=== PATIENT | male | born 1970 | race Hispanic/Latino ===

== ENCOUNTER 2018-03-04 04:17 | Emergency (ER) | payer BC ==
--- OUTSIDE RECORDS SUMMARY | 2018-03-04 04:19 | XMS REPORT ---
:1970 [facility] Address [address] [place] [address] Dr. Mar [address] [place] [id number] Care Team Providers Name Role Phone Unavailable Unavailable Unavailable Problems This patient has no known problems. Allergies, Adverse Reactions, Alerts This patient has no known allergies or adverse reactions. Medications This patient has no known medications. Results Test Description Test Time Test Comments Text Results Atomic Results Result Comments CT LUMBAR WO CLINICAL INDICATION: M47.9 Spondylosis, unspecified low back painMODALITY: Siemens XIFIN CT (Iterative dose reduction techniques are utilized.)TECHNIQUE: CT scan of the lumbar spine was performed without contrast. Axial images are obtained. Images are reformatted in coronal and sagittal planes. Bone and soft tissue windows are formatted.IMPRESSION:1. Global fusions which are solid L4-S1.2. Instrumentation remains on the right which is in good position without failure fracture or loosening. Instrumentation left is been removed.3. Decompressive laminectomies L1-S1 without central canal stenosis.4. Previously noted disc protrusion/herniations posteriorly at L1-2 through L3-4 levels demonstrate some areas of calcification. These are further described on MRI lumbar spine.FINDINGS:COMPARISON: noneGeneral observations: Five non-rib bearing lumbar type vertebral bodies are present.Global fusions with instrumentation L4-S1. Interbody fusion cages/grafts are in good position incorporated endplates with solid interbody fusions. Hardware is been removed on the left however remains on the right in good position without failure fracture or loosening. Bilateral posterior lateral bone fusion masses solid L4-S1. Decompressive laminectomies L1 through S1.Moderate disc degeneration spondylosis L3-4 with degenerative retrolisthesis L3 on L4. Mild to moderate disc degeneration spondylosis L1-2 and L2-3 levels with degenerative retrolisthesis of L1-L2 and L2 and L3.Postsurgical changes noted in dorsal paraspinal soft tissues without paraspinal soft tissue mass.Posterior disc protrusions/herniations noted at L1-2 through L3-4 levels which are partially calcified and further described on the MRI report.No vertebral body collapse, lytic or blastic lesion.PQRS 436: [id number] (For official use only.) MRI LUMBAR WO CLINICAL INDICATION: M47.9 Spondylosis, unspecified low back pain radiating to both legs with weakness and numbness in both feet. History of lumbar fusion in March 2013 and hardware removal September 2013MODALITY: Avanto 1.5 Renea 18 channel MRI TECHNIQUE: Multiplanar multi sequence MRI examination of the lumbar spine was performed.IMPRESSION:1. Global fusion L4-5 and L5-S1 levels with decompressive laminectomies. No central canal narrowing. Foraminal narrowing as described below.2. Laminectomies T12-L1 through L2-3 levels.3. Probable mild arachnoiditis.4. Posterior disc herniations T12-L1 through L3-4 levels as described above. No significant central canal stenosis however there is some neural mass effect as described below.5. Remainder described belowFINDINGS:COMPARISON: noneGeneral observations: Five non-rib bearing lumbar type vertebral bodies will be assumed.Conus tip located at T12-L1.Mild irregularity of intrathecal nerve root sleeves and vessels. This is suggestive of mild arachnoiditis.Status post global fusions with instrumentation L4-5 and L5-S1 levels. Instrumentation remains on the right from L4-S1 but has been removed on the left L4-S1. Interbody fusion cages/graft appears to be incorporated into endplates at both L4-5 and L5-S1 levels. Status of posterior lateral fusions cannot be determined on these images.Moderate disc degeneration and spondylosis L3-4 with mild to moderate disc degeneration spondylosis L1-2 and L2-3 levels.No vertebral body compression.No pathologic marrow infiltrative process.No paraspinal soft tissue mass however postsurgical changes noted in dorsal soft tissues.FINDINGS AT SPECIFIC LEVELS:L5-S1: No central canal stenosis. Mild to moderate left and mild right foraminal narrowing.L4-L5: No central canal stenosis. Mild bilateral foraminal narrowing.L3-L4: Mild degenerative retrolisthesis of L3 on L4 with six - 7 mm posterior disc herniation with mild caudad extrusion projecting into ventral epidural fat. This encroaches on at least left and probably right L for root and only slightly indents ventral thecal sac. Post canal is decompressed with laminotomy/laminectomy. No significant stenosis subarachnoid space. Degree of right foraminal narrowing difficult to determine however this appears to be moderate encroaching on right L3 root. Mild to moderate left foraminal narrowing.L2-L3: Slight retrolisthesis L2 on L3 with a eight - 9 mm posterocentral soft disc herniation indenting ventral thecal sac. Decompressive laminectomies and partial facetectomies been performed without narrowing subarachnoid space small foraminal disc osteophyte complexes without significant foraminal stenosisL1-L2: Slight retrolisthesis L1-L2 with posterior broad-based disc osteophyte complex and superimposed left posterior lateral disc herniation. There is a 13 mm extruded fragment in the mid left L1 lateral recess exerting mass effect on thecal sac and traversing left L1 root. Decompressive laminectomies. There is only mild narrowing subarachnoid space at the level of extruded fragment. No significant foraminal stenosis.T12-L1 shows 7-8 mm posterocentral soft disc herniation with slight cephalad extrusion mildly encroaching upon the lower thoracic cord/conus without compression. There is mild narrowing subarachnoid space. MRI CERVICAL WO CLINICAL INDICATION: M47.9 Spondylosis, [id number] Cervical disc disorder, unsp, unspecified cervical region neck pain radiating to both shoulders and arms with numbness in both handsMODALITY: Avanto 1.5 Renea 18 channel MRITECHNIQUE: Multiplanar SE and FSE evaluation of the cervical region was performed without contrast enhancement.IMPRESSION:1. C5-6 shows a 4 mm posterocentral right paracentral disc protrusion with annular tear mildly encroaching upon ventral cord with mild narrowing subarachnoid space. No cord compression.2. C6-7 shows a 3 mm posterior disc protrusion with annular tear indenting thecal sac not affecting cord. Mild narrowing subarachnoid space with mild left foraminal narrowing.FINDINGS:COMPARISON: noneNo tonsillar ectopia or foramen magnum mass and cervical cord is unremarkable without intradural extramedullary abnormalityMild disc degeneration spondylosis C3-4 through C6-7 levels.Minimal kyphosis of cervical spine.No vertebral body compression.No pathologic marrow infiltrative process.No paraspinal soft tissue mass.Atlanto-axial articulation unremarkableFINDINGS AT SPECIFIC LEVELS:C2-C3: UnremarkableC3-C4: One - 2 mm posterocentral disc bulge slightly indents ventral thecal sac without mass effect on cord, canal or foraminal stenosisC4-C5: 2 mm posterocentral disc bulge indents ventral thecal sac without mass effect on cord, canal or foraminal stenosis.C5-C6: 4 mm posterocentral and slightly right paracentral disc protrusion with annular tear indents ventral cord with slight posterior cord displacement and mild central canal narrowing. No cord compression. No foraminal stenosis.C6-C7: 3 mm posterior broad-based disc protrusion with annular tear indents ventral thecal sac without mass effect on cord. Only mild narrowing subarachnoid space. Mild left foraminal narrowing.C7-T1: Unremarkable.
[2018-03-04] MEDS ORDERED: KETOROLAC 30 MG/ML INJ ONE (05:38)
--- NOTE | 2018-03-04 05:53 | ER ---
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 Transition of care: patient was not received from another setting of care. Onset of symptoms was March 04, 2018. Risk Assessment: Do you want to hurt yourself or someone else? Patient reports no desire to harm self or others. Initial Sepsis Screen: Does the patient meet any 2 criteria? No. Patient's initial sepsis screen is negative. Does the patient have a suspected source of infection? No. Patient's initial sepsis screen is negative. Care prior to arrival: None. 04:32 Method Of Arrival: Ambulatory 04:32 Acuity: TANVI 4 bb Triage Assessment: 04:30 General: Appears in no apparent distress. comfortable, Behavior is calm, cooperative, cc3 appropriate for age. Pain: Complains of pain in left knee Pain currently is 8 out of 10 on a pain scale. Quality of pain is described as aching. EENT: No signs and/or symptoms were reported regarding the EENT system. Neuro: Level of Consciousness is awake, alert, obeys commands, Oriented to person, place, time, situation. Cardiovascular: Denies chest pain. Respiratory: Airway is patent Respiratory effort is even, unlabored, Respiratory pattern is regular, symmetrical. GI: Abdomen is round obese. : No signs and/or symptoms were reported regarding the genitourinary system. Derm: No signs and/or symptoms reported regarding the dermatologic system. Musculoskeletal: Circulation, motion, and sensation intact. Range of motion: intact in all extremities. Historical: - Allergies: 04:35 Rocephin; bb - Home Meds: 04:35 Mildred inj weekly [Active]; B 12 inj Q 2 weeks [Active]; bb - PMHx: 04:35 SVT; bb - PSHx: 04:35 heart ablation; back surgery; bb - Immunization history:: Adult Immunizations up to date. - Social history:: Smoking status: Patient uses tobacco products, smokes one-half pack cigarettes per day, Patient uses alcohol, occasionally. - Ebola Screening: : No symptoms or risks identified at this time. Screenin:30 Abuse screen: Denies threats or abuse. Denies injuries from another. Nutritional cc3 screening: No deficits noted. Tuberculosis screening: No symptoms or risk factors identified. Fall Risk Ambulatory Aid- None/Bed Rest/Nurse Assist (0 pts). Gait- Normal/Bed Rest/Wheelchair (0 pts) Mental Status- Oriented to own ability (0 pts). Assessment: 04:30 General: see triage assessment. cc3 05:43 Reassessment: Patient appears in no apparent distress at this time. Patient and/or cc3 family updated on plan of care and expected duration. Pain level reassessed. Patient is alert, oriented x 3, equal unlabored respirations, skin warm/dry/pink. 06:10 Reassessment: Patient appears in no apparent distress at this time. Patient and/or cc3 family updated on plan of care and expected duration. Pain level reassessed. Patient is alert, oriented x 3, equal unlabored respirations, skin warm/dry/pink. Dr. Koenig discharged home the patient with prescription given. Knee immobilizer applied to the left knee as ordered. Patient left ER vitally stable and ambulatory. Vital Signs: 04:35 BP 137 / 96; Pulse 68; Resp 18 S; Temp 97.7(O); Pulse Ox 97% on R/A; Weight 108.86 kg bb (R); Height 5 ft. 8 in. (172.72 cm) (R); Pain 9/10; 05:03 BP 142 / 92; Pulse 63; Resp 19 S; Pulse Ox 98% on R/A; cc3 06:00 BP 125 / 81; Pulse 60; Resp 17 S; Pulse Ox 99% on R/A; Pain 4/10; cc3 04:35 Body Mass Index 36.49 (108.86 kg, 172.72 cm) bb ED Course: 04:18 Patient arrived in ED. am2 04:18 Vida Oliver MD is Private Physician. am2 04:25 Bhargav Koenig MD is Attending Physician. tw4 04:29 Comfort Davis is Primary Nurse. cc3 04:30 Patient has correct armband on for positive identification. Placed in gown. Bed in low cc3 position. Call light in reach. Side rails up X 1. Pulse ox on. NIBP on. 04:34 Triage completed. bb 04:35 Arm band placed on Patient placed in an exam room, on a stretcher, on pulse oximetry. bb 05:35 X-ray completed. Portable x-ray completed in exam room. Patient tolerated procedure kw well. 05:37 XRAY Knee LEFT 3 view In Process Unspecified. EDMS 05:52 Vida Oliver MD is Referral Physician. tw4 06:10 No provider procedures requiring assistance completed. Patient did not have IV access cc3 during this emergency room visit. Administered Medications: 05:35 Drug: TORadol 60 mg Route: IM; Site: right gluteus; cc3 06:00 Follow up: Response: No adverse reaction; Pain is decreased cc3 Outcome: 05:52 Discharge ordered by MD. tw4 06:10 Discharged to home ambulatory. cc3 06:10 Condition: stable 06:10 Discharge instructions given to patient, Instructed on discharge instructions, follow up and referral plans. medication usage, Demonstrated understanding of instructions, follow-up care, medications, Prescriptions given X 1. 06:19 Patient left the ED. cc3 Signatures: Dispatcher [employer] EDMS Jena Quinones, RN RN Ashlee Cerna Amanda am2 Wadley, Terrence, MD MD tw4 Comfort Davis cc3
--- NOTE | 2018-03-04 05:53 | EDPHYS ---
Physician Documentation [facility] Name: Noah De La Fuente Age: 47 yrs Sex: Male : 1970 Arrival Date: 03/04/2018 Time: 04:18 Bed 14 Private MD: Vida Oliver ED Physician Bhargav Koenig HPI: 03/04 20:02 This 47 yrs old Male presents to ER via Ambulatory with complaints of Knee tw4 Pain. 20:02 This 47 yrs old Male presents to ER via Ambulatory with complaints of Knee tw4 Pain. 20:02 The patient presents with decreased range of motion, an injury. The complaints affect tw4 the lateral aspect of left knee and left knee. Context: The problem was sustained at home, resulted from a mis-step, on a floor edge. Onset: The symptoms/episode began/occurred just prior to arrival. Modifying factors: The symptoms are alleviated by remaining still, the symptoms are aggravated by movement, weight bearing, bending knee. Associated signs and symptoms: The patient has no apparent associated signs or symptoms. Treatment prior to arrival includes: no previous treatment. The patient has not experienced similar symptoms in the past. Historical: - Allergies: 04:35 Rocephin; bb - Home Meds: 04:35 Mildred inj weekly [Active]; B 12 inj Q 2 weeks [Active]; bb - PMHx: 04:35 SVT; bb - PSHx: 04:35 heart ablation; back surgery; bb - Immunization history:: Adult Immunizations up to date. - Social history:: Smoking status: Patient uses tobacco products, smokes one-half pack cigarettes per day, Patient uses alcohol, occasionally. - Ebola Screening: : No symptoms or risks identified at this time. ROS: 20:02 Constitutional: Negative for fever, chills, and weight loss, Eyes: Negative for injury, tw4 pain, redness, and discharge, Cardiovascular: Negative for chest pain, palpitations, and edema, Respiratory: Negative for shortness of breath, cough, wheezing, and pleuritic chest pain, Abdomen/GI: Negative for abdominal pain, nausea, vomiting, diarrhea, and constipation, Back: Negative for injury and pain, MS/Extremity: Negative for injury and deformity, Skin: Negative for injury, rash, and discoloration. Exam: 20:05 Constitutional: This is a well developed, well nourished patient who is awake, alert, tw4 and in no acute distress. Head/Face: Normocephalic, atraumatic. Chest/axilla: Normal chest wall appearance and motion. Nontender with no deformity. No lesions are appreciated. Cardiovascular: Regular rate and rhythm with a normal S1 and S2. No gallops, murmurs, or rubs. Normal PMI, no JVD. No pulse deficits. Respiratory: Lungs have equal breath sounds bilaterally, clear to auscultation and percussion. No rales, rhonchi or wheezes noted. No increased work of breathing, no retractions or nasal flaring. Abdomen/GI: Soft, non-tender, with normal bowel sounds. No distension or tympany. No guarding or rebound. No evidence of tenderness throughout. Back: No spinal tenderness. No costovertebral tenderness. Full range of motion. MS/ Extremity: Pulses equal, no cyanosis. Neurovascular intact. Full, normal range of motion. Neuro: Awake and alert, GCS 15, oriented to person, place, time, and situation. Cranial nerves II-XII grossly intact. Motor strength 5/5 in all extremities. Sensory grossly intact. Cerebellar exam normal. Normal gait. Vital Signs: 04:35 BP 137 / 96; Pulse 68; Resp 18 S; Temp 97.7(O); Pulse Ox 97% on R/A; Weight 108.86 kg bb (R); Height 5 ft. 8 in. (172.72 cm) (R); Pain 9/10; 05:03 BP 142 / 92; Pulse 63; Resp 19 S; Pulse Ox 98% on R/A; cc3 06:00 BP 125 / 81; Pulse 60; Resp 17 S; Pulse Ox 99% on R/A; Pain 4/10; cc3 04:35 Body Mass Index 36.49 (108.86 kg, 172.72 cm) bb MDM: 04:25 Patient medically screened. tw4 20:06 Differential diagnosis: dislocation, closed fracture, contusion, abrasion, tendonitis. tw4 Data reviewed: vital signs, nurses notes. Data interpreted: Pulse oximetry: Interpretation: normal. Counseling: I had a detailed discussion with the patient and/or guardian regarding: the historical points, exam findings, and any diagnostic results supporting the discharge/admit diagnosis. 03/04 04:39 Order name: XRAY Knee LEFT 3 view bb Administered Medications: 05:35 Drug: TORadol 60 mg Route: IM; Site: right gluteus; cc3 06:00 Follow up: Response: No adverse reaction; Pain is decreased cc3 Disposition: 03/04/18 05:52 Discharged to Home. Impression: Sprain of other specified parts of knee. - Condition is Stable. - Discharge Instructions: Knee Sprain, [id number]. - Prescriptions for Tramadol 50 mg Oral Tablet - take 1 tablet by ORAL route every 8 hours as needed; 12 tablet. - Medication Reconciliation Form, Thank You Letter, Antibiotic Education, Prescription Opioid Use form. - Follow up: Vida Oliver MD; When: Upon discharge from the Emergency Department; Reason: Further diagnostic work-up, Recheck today's complaints, Continuance of care. - Problem is new. - Symptoms have improved. Signatures: Dispatcher [employer] EDJena Pryor RN RN Bhargav Peres MD MD tw4 Comfort Davis cc3 Corrections: (The following items were deleted from the chart) 06:19 05:52 03/04/2018 05:52 Discharged to Home. Impression: Sprain of other specified parts cc3 of knee. Condition is Stable. Forms are Medication Reconciliation Form, Thank You Letter, Antibiotic Education, Prescription Opioid Use. Follow up: Vida Oliver; When: Upon discharge from the Emergency Department; Reason: Further diagnostic work-up, Recheck today's complaints, Continuance of care. Problem is new. Symptoms have improved. tw4
[2018-03-04 06:26] VITALS: TEMP 97.7
[2018-03-04 06:33] VITALS: BP 125/81; O2SAT 99
--- NOTE | 2018-03-04 08:46 | RAD REPORT ---
EXAM DESCRIPTION: RAD - Knee Left 3 View - 03/04/2018 5:36 am CLINICAL HISTORY: PAIN COMPARISON: No comparisons FINDINGS: Medial compartment space narrowing is present compatible with mild osteoarthritis. A small to moderate suprapatellar joint effusion is seen. No fracture or dislocation evident. No aggressive marrow lesion.
== END 2018-03-04 06:19 | disposition home or self-care (01) ==
LOC: ER 04:17
DX: S83.8X2A Sprain of other specified parts of left knee, initial encounter (principal); X58.XXXA Exposure to other specified factors, initial encounter; Y93.89 Activity, other specified; Y92.009 Unspecified place in unspecified non-institutional (private) residence as the place of occurrence of the external cause; Z88.1 Allergy status to other antibiotic agents; I47.1 Supraventricular tachycardia
CPT/HCPCS: 96372; 99284

== ENCOUNTER 2019-07-28 22:54 | Emergency (ER) | payer BC ==
--- OUTSIDE RECORDS SUMMARY | 2019-07-28 22:57 | XMS REPORT | Summary of Care ---
:1970 Author Organization [facility] Address [address] [place] [id number] Care Team Providers Name Role Phone Jesús Mata MD Primary Care Provider Reason for Visit Reason Comments Abdominal Pain RLQ x 3-4 days, constant pain 9/10 that radiates to right posterior and anteriot upper leg, pt describes pain as pressure with occasional sharp pains Encounter Details Date Type Department Care Team Description 06/19/2019 Nurse Visit [facility] Unknown, Attending RLQ abdominal pain Urgent Care Nurse, [facility] (Primary Dx) [address] [place] [address] [place] [address] Allergies Active Allergy Reactions Severity Noted Date Comments Ceftriaxone Sodium Hives Medium 09/30/2015 documented as of this encounter (statuses as of 06/19/2019) Medications Medication Sig Dispensed Refills Start Date End Date Status cyanocobalamin, Inject 1,000 mcg as 0 Active vitamin B-12, directed weekly. (PHYSICIANS EZ USE B-12) 1,000 mcg/mL injection HUMIRA PEN 40 mg/0.8 inject 40 mg under 1 06/27/2016 Active mL injection the skin every 2 (two) weeks. albuterol 2.5 mg /3 Inhale 3 mL every 4 1 Box 0 04/14/2019 Active mL (0.083 %) (four) hours as nebulizer needed for Wheezing solutionIndications: or Shortness of Bronchitis Breath. promethazine-dextrome Take 5 mL by mouth 175 mL 0 04/14/2019 Active thorphan 6.25-15 mg/5 4 (four) times mL syrupIndications: daily as needed for Bronchitis Cough. documented as of this encounter (statuses as of 06/19/2019) Active Problems Problem Noted Date Obesity (BMI 30-39.9) 03/10/2018 Total knee replacement status 03/10/2018 Pain 10/03/2015 documented as of this encounter (statuses as of 06/19/2019) Social History Tobacco Use Types Packs/Day Years Used Date Current Every Day Smoker Cigarettes 0.5 Smokeless Tobacco: Never Used Alcohol Use Drinks/Week oz/Week Comments No 0 Standard drinks or equivalent 0.0 Sex Assigned at Date Recorded Not on file Job Start Date Occupation Industry Not on file Not on file Not on file Travel History Travel Start Travel End No recent travel history available. documented as of this encounter Last Filed Vital Signs Vital Sign Reading Time Taken Comments Blood Pressure 134/104 06/19/2019 9:04 PM [employer] [facility] Pulse 98 06/19/2019 9:04 PM [employer] Temperature 36.8 C (98.3 F) 06/19/2019 9:04 PM [employer] Respiratory Rate 18 06/19/2019 9:04 PM [employer] Oxygen Saturation 99% 06/19/2019 9:04 PM [employer] Inhaled Oxygen Concentration - - Weight 114.3 kg (252 lb) 06/19/2019 9:04 PM [employer] Height 172.7 cm (5' 8") 06/19/2019 9:04 PM [employer] Body Mass Index 38.32 06/19/2019 9:04 PM [employer] documented in this encounter Progress Notes Beth Contreras MA - 06/19/2019 8:45 PM CSTNoah De La Fuente is a 49 y/o male complaining of RLQ pain x 3-4 days. Patient reports 01/20 constant pressure-like pain with intermittent sharp pains in right side. Pt states pain radiates to right posterior and anterior upper leg. Patient reports history of none. Patient AAOx4, ambulatory, eupneic, skin pink/warm/dry, no acute distress noted. Patient encouraged to seek emergency medical treatment at local emergency room for RLQ pain 01/20. Case discussed with RICH Adams who agrees with treatment plan recommendations. Patient verbalizes understanding and states she will be seen at [facility]. Ambulance transport by 911 EMS offered to patient but refused. Patient leaves urgent care @ 2100 en route to [facility] AAOx4, ambulatory, in no acute distress. documented in this encounter Plan of Treatment Health Maintenance Due Date Last Done Comments PNEUMOCOCCAL 0-64 YEARS COMBINED SERIES (1 of - 1975 PPSV23) DTaP,Tdap,and Td Vaccines (1 - Tdap) 1980 INFLUENZA VACCINE (#1) 2019 COLONOSCOPY 2019 Zoster Recombinant Vaccine (SHINGRIX) (1 of 2) 2019 documented as of this encounter Implants Implanted Type Area Automatic Trimming Sewer Device Shelf Model / Identifier Expiration Serial / Lot Date Bone Cement Injector 1x40 W/Gentamicin Biomet Ref#[id number] - [id number] CEMENT Left: Biomet 03/12/2020 [id number] / Implanted: Qty: 1 on 03/10/2018 by Trevin Jin MD at [facility] Knee [id number] / [id number] Component Femoral Cementless 65mml Left [facility] Biomet Ref#[id number] Femur Left: Biomet 01/02/2028 [id number] / Implanted: Qty: 1 on 03/10/2018 by Trevin Jin MD at [facility] Knee [id number] / [id number] Bearing Tibial 12 X 71/75 Mm #[id number] - [id number] KNEE Left: Biomet 2021 [id number] / Implanted: Qty: 1 on 03/10/2018 by Trevin Jin MD at [facility] Knee [id number] / [id number] Stem Finned Primary 40mm Biomet #[id number] - [id number] Knee Stem Left: Biomet 02/20/2028 [id number] / Implanted: Qty: 1 on 03/10/2018 by Trevin Jin MD at [facility] Knee [id number] / [id number] Patella 34mm Vanguard Knee System Biomet #[id number] - [id number] PATELLA Left: Biomet [id number] / Implanted: Qty: 1 on 03/10/2018 by Trevin Jin MD at [facility] Knee 0 / [id number] Adc Plate Tibial Porous 75 Mm - [id number] PLATE Left: Biomet 11/29/2022 [id number] / Implanted: Qty: 1 on 03/10/2018 by Trevin Jin MD at [facility] Knee [id number] / [id number] Screw Bone 6.5x40mm Lp St Biomet #[id number] [[id number]] SCREW Left: Biomet [id number] / Implanted: Qty: 2 on 03/10/2018 by Trevin Jin MD at [facility] Knee [id number] / [id number] Screw Bone 6.5x30mm Lp St Biomet #[id number] - [id number] SCREW Left: Biomet 11/2027 [id number] / Implanted: Qty: 2 on 03/10/2018 by Trevin Jin MD at [facility] Knee [id number] / [id number] documented as of this encounter Results Not on filedocumented in this encounter Visit Diagnoses Diagnosis RLQ abdominal pain - Primary Abdominal pain, right lower quadrant documented in this encounter Insurance Payer Benefit Plan Subscriber ID Effective Dates Phone Address Type / Group [facility] [id number] 2015-Dari [phone] [address] PPO/POS [place] [id number] [place] [address] documented as of this encounter
--- OUTSIDE RECORDS SUMMARY | 2019-07-28 22:57 | XMS REPORT ---
:1970 [facility] Address [address] [place] [address] Care Team Providers Name Role Phone Unavailable Unavailable Unavailable Payers Payer Name Policy Type Policy Number Effective Date Expiration Date Problems This patient has no known problems. Allergies, Adverse Reactions, Alerts Allergy Name Allergy Status Severity Reaction(s) Onset Inactive Treating Comments Type Date Date Clinician ceftriaxone DA Active SV 2018-11 00:00:0 0 ceftriaxone DA Active SV 2013-03 00:00:0 0 Medications This patient has no known medications. Results Test Description Test Time Test Comments Text Results Atomic Results Result Comments AB HIV 1 2018-12-08 15:57:00 Test Item Value Reference Range Comments AB HIV 1 (test code=HIV1AB) NONREACTIVE NONREACTIVE Done by [employer] Gen HIV Ag/Ab Combo Screen AB HIV 1 15:56:00 Test Item Value Reference Range Comments AB HIV 1 2 (test NONREACTIVE NONREACTIVE Done by [employer] 4th code=GXL89AV) Gen HIV Ag/Ab Combo Screen URINALYSIS [id number] 14:22:00 Test Item Value Reference Range Comments UA COLOR (test code=COLU) YELLOW YELLOW UA APPEARANCE (test code=APPU) CLEAR CLEAR UA GLUCOSE DIPSTICK (test code=DGLUU) NEGATIVE NEGATIVE UA BILIRUBIN DIPSTICK (test code=BILU) NEGATIVE NEGATIVE UA KETONE DIPSTICK (test code=KETU) NEGATIVE mg/dL NEGATIVE UA SPECIFIC GRAVITY (test code=SGU) 1.025 1.003-1.035 UA BLOOD DIPSTICK (test code=RASHARD) 1+ NEGATIVE UA PH DIPSTICK (test code=CORNEL) 5.5 >6.5 UA PROTEIN DIPSTICK (test code=PROU) NEGATIVE mg/dL NEG UA UROBILINIOGEN DIPSTICK (test code=URO) 0.2 mg/dL NORM UA NITRITE DIPSTICK (test code=BEVERLY) NEGATIVE NEG UA LEUKOCYTE ESTERASE DIPSTICK (test NEGATIVE NEGATIVE code=LEUU) UA WBC (test code=WBCU) NONE /HPF 0-2 UA RBC (test code=RBCU) NONE /HPF 0-2 UA EPITHELIAL CELLS (test code=EPIU) RARE /HPF 0-2 UA BACTERIA (test code=BACU) NEGATIVE /HPF NONE COMPREHENSIVE METABOLIC [id number] 14:14:00 Test Item Value Reference Range Comments SODIUM (test code=NA) 145 mmol/L 136-145 POTASSIUM (test code=K) 4.6 mmol/L 3.5-5.1 CHLORIDE (test code=CL) 106.0 mmol/L 98-107 CARBON DIOXIDE (test code=CO2) 31.0 mmol/L 21-32 GLUCOSE (test code=GLU) 99 mg/dL 70-110 BLOOD UREA NITROGEN (test 12 mg/dL 7-18 code=BUN) GLOMERULAR FILTRATION RATE 104.2 >60 Unit of measure: (test code=GFR) mL/min/1.73 [id number] Range:Healthy Adults >90 mL/min/1.73 m2 For Chronic Kidney Disease: Stage II Mild Decrease in GFR 60-90 Stage III Moderate Decrease in GFR 30-59 Stage IV Severe Decrease in GFR 15-29 Stage V Kidney Failure <15 CREATININE (test code=CREAT) 0.79 mg/dL 0.55-1.30 TOTAL PROTEIN (test code=PROT) 7.1 g/dL 6.4-8.2 ALBUMIN (test code=ALB) 4.1 g/dL 3.4-5.0 GLOBULIN (test code=GLOB) 3.0 g/dL 2.2-4.2 ALBUMIN/GLOBULIN RATIO (test 1.4 0.7-2.0 code=A/G) CALCIUM (test code=CA) 8.7 mg/dL 8.2-10.1 BILIRUBIN TOTAL (test 0.60 mg/dL 0.2-1.00 code=BILT) SGOT/AST (test code=AST) 21.0 U/L 15-37 SGPT/ALT (test code=ALT) 34.0 U/L 12-78 Please note new normal range. ALKALINE PHOSPHATASE TOTAL 94 U/L 46-116 (test code=ALKP) PROTHROMBIN [id number] 14:10:00 Test Item Value Reference Range Comments PROTHROMBIN TIME PATIENT 10.8 secs 10.1-12.5 (test code=PTP) INTERNATIONAL NORMAL RATIO 0.96 <2.0 RECOMMENDED THERAPEUTIC RANGE (test code=INR) FOR ORAL ANTICOAGULANTTREATMENT: CONDITION INRProphylaxis of venous thrombosis in 2.0 - 3.0 high-risk medical or surgical patientsTreatment of venous thrombosis 2.0 - 3.0Prevention of embolism 2.0 - 3.0Prevention of recurrent embolism, or 3.0 - 4.5 patients with mechanical prosthetic intravascular valves IS PATIENT ON ANTICOAGULANTS ? PRas Lab been notified if Patient is on Heparin Drip? NOIf Yes, orderCBC, OCCULT BLOOD, PT every other day NTHROMBOPLASTIN TIME [id number] 14:10:00 Test Item Value Reference Range Comments PTT ACTIVATED (test code=APTT) 36.2 secs 24.9-37.0 IS PATIENT ON ANTICOAGULANTS ? PRas Lab been notified if Patient is on Heparin Drip? NOIf Yes, orderCBC, OCCULT BLOOD, PT every other day NCBC W/AUTO [id number] 13:40:00 Test Item Value Reference Range Comments WHITE BLOOD CELL (test code=WBC) 7.9 K/mm3 5.7-10.5 RED BLOOD CELL (test code=RBC) 4.87 M/mm3 4.2-5.4 HEMOGLOBIN (test code=HGB) 14.8 g/dL 12-16 HEMATOCRIT (test code=HCT) 43.4 % 37-47 MEAN CELL VOLUME (test code=MCV) 89 fL 80-98 MEAN CELL HGB (test code=MCH) 30.4 pg 27-34 MEAN CELL HGB CONCENTRATION (test code=MCHC) 34.1 g/dL 30.8-34.1 RED CELL DISTRIBUTION WIDTH (test code=RDW) 12.8 % 11-16 PLT (test code=PLT) 228 K/mm3 130-400 MEAN PLATELET VOLUME (test code=MPV) 10.9 fL 8.9-12.1 NEUTROPHIL % (test code=NT%) 63.4 % 45-70 LYMPHOCYTE % (test code=LY%) 25.9 % 20-40 MONOCYTE % (test code=MO%) 6.9 % 3-10 EOSINOPHIL % (test code=EO%) 2.5 % 1-5 BASOPHIL % (test code=BA%) 0.8 % 0.0-1.1 NEUTROPHIL # (test code=NT#) 4.99 K/mm3 2.00-7.50 LYMPHOCYTE # (test code=LY#) 2.04 K/mm3 1.50-4.00 MONOCYTE # (test code=MO#) 0.54 K/mm3 0.2-0.8 EOSINOPHIL # (test code=EO#) 0.20 K/mm3 0.04-0.4 BASOPHIL # (test code=BA#) 0.06 K/mm3 0.02-0.10 MANUAL DIFF REQUIRED (test code=MDIFF) NO MANUAL DIFF NUCLEATED RED BLOOD CELL (test code=NRBC) 0 % 0-0 CBC W/AUTO [id number] 13:48:00 Test Item Value Reference Range Comments WHITE BLOOD CELL (test code=WBC) 7.8 K/mm3 5.7-10.5 RED BLOOD CELL (test code=RBC) 5.00 M/mm3 4.2-5.4 HEMOGLOBIN (test code=HGB) 14.9 g/dL 12-16 HEMATOCRIT (test code=HCT) 44.8 % 37-47 MEAN CELL VOLUME (test code=MCV) 90 fL 80-98 MEAN CELL HGB (test code=MCH) 29.8 pg 27-34 MEAN CELL HGB CONCENTRATION (test code=MCHC) 33.3 g/dL 30.8-34.1 RED CELL DISTRIBUTION WIDTH (test code=RDW) 12.8 % 11-16 PLT (test code=PLT) 212 K/mm3 130-400 MEAN PLATELET VOLUME (test code=MPV) 11.0 fL 8.9-12.1 NEUTROPHIL % (test code=NT%) 63.1 % 45-70 LYMPHOCYTE % (test code=LY%) 26.6 % 20-40 MONOCYTE % (test code=MO%) 6.6 % 3-10 EOSINOPHIL % (test code=EO%) 2.3 % 1-5 BASOPHIL % (test code=BA%) 0.8 % 0.0-1.1 NEUTROPHIL # (test code=NT#) 4.89 K/mm3 2.00-7.50 LYMPHOCYTE # (test code=LY#) 2.06 K/mm3 1.50-4.00 MONOCYTE # (test code=MO#) 0.51 K/mm3 0.2-0.8 EOSINOPHIL # (test code=EO#) 0.18 K/mm3 0.04-0.4 BASOPHIL # (test code=BA#) 0.06 K/mm3 0.02-0.10 MANUAL DIFF REQUIRED (test code=MDIFF) NO MANUAL DIFF NUCLEATED RED BLOOD CELL (test code=NRBC) 0 % 0-0 SED [id number] 13:48:00 Test Item Value Reference Range Comments SED RATE (test code=SEDW) 5 mm/hr 0-15 C REACTIVE [id number] 13:13:00 Test Item Value Reference Range Comments C REACTIVE PROTEIN (test code=CRP) < 0.2 mg/dL <0.[id number] 13:01:00 Test Item Value Reference Range Comments SYNOVIAL FLD COLOR (test BLOODY LT. YELLOW code=COLSY) SYNOVIAL FLD APPEARANCE BLOODY CLEAR (test code=APPSY) SYNOVIAL FLD VOLUME 2.0 mL (test code=VOLSY) SYNOVIAL FLD WBC (test 988.000 /MM3 0-200 code=WBCSY) SYNOVIAL FLD RBC (test 82003.000 /mm3 0-2 NOTE: An automated method is code=RBCSY) now being used to determinesynovial fluid WBC and RBC counts. The differential willstill be performed manually. SYNOVIAL FLD POLY (test 35 % 0-25 code=POLYSY) SYNOVIAL FLD LYMPHOCYTE 56 % 0-78 (test code=LYMPHSY) SYNOVIAL FLD MONOCYTE 1 % 0-71 (test code=MONOSY) SYNOVIAL FLD PLASMA CELL 4 % 0-0 (test code=PLASY) SYNOVIAL FLD HISTIOCYTE 4 % 0-2 (test code=HISTSY) SPECIMEN COMMENT: ASPIRATED PER LEFT KNEE CELLCOUNTCBC W/AUTO [id number] 12:46:00 Test Item Value Reference Range Comments WHITE BLOOD CELL (test code=WBC) 7.8 K/mm3 5.7-10.5 RED BLOOD CELL (test code=RBC) 5.00 M/mm3 4.2-5.4 HEMOGLOBIN (test code=HGB) 14.9 g/dL 12-16 HEMATOCRIT (test code=HCT) 44.8 % 37-47 MEAN CELL VOLUME (test code=MCV) 90 fL 80-98 MEAN CELL HGB (test code=MCH) 29.8 pg 27-34 MEAN CELL HGB CONCENTRATION (test code=MCHC) 33.3 g/dL 30.8-34.1 RED CELL DISTRIBUTION WIDTH (test code=RDW) 12.8 % 11-16 PLT (test code=PLT) 212 K/mm3 130-400 MEAN PLATELET VOLUME (test code=MPV) 11.0 fL 8.9-12.1 NEUTROPHIL % (test code=NT%) 63.1 % 45-70 LYMPHOCYTE % (test code=LY%) 26.6 % 20-40 MONOCYTE % (test code=MO%) 6.6 % 3-10 EOSINOPHIL % (test code=EO%) 2.3 % 1-5 BASOPHIL % (test code=BA%) 0.8 % 0.0-1.1 NEUTROPHIL # (test code=NT#) 4.89 K/mm3 2.00-7.50 LYMPHOCYTE # (test code=LY#) 2.06 K/mm3 1.50-4.00 MONOCYTE # (test code=MO#) 0.51 K/mm3 0.2-0.8 EOSINOPHIL # (test code=EO#) 0.18 K/mm3 0.04-0.4 BASOPHIL # (test code=BA#) 0.06 K/mm3 0.02-0.10 MANUAL DIFF REQUIRED (test code=MDIFF) NO MANUAL DIFF NUCLEATED RED BLOOD CELL (test code=NRBC) 0 % 0-0 SED [id number] 12:46:00 Test Item Value Reference Range Comments SED RATE (test code=SEDW) mm/hr 0-[id number] 12:30:00 Test Item Value Reference Range Comments SYNOVIAL FLD COLOR (test LT. YELLOW code=COLSY) SYNOVIAL FLD APPEARANCE CLEAR (test code=APPSY) SYNOVIAL FLD VOLUME mL (test code=VOLSY) SYNOVIAL FLD WBC (test 988.000 /MM3 0-200 code=WBCSY) SYNOVIAL FLD RBC (test 34076.000 /mm3 0-2 NOTE: An automated method is code=RBCSY) now being used to determinesynovial fluid WBC and RBC counts. The differential willstill be performed manually. SPECIMEN COMMENT: ASPIRATED PER LEFT KNEE CELLCOUNT - XR FLUORO [id number] 11:23:00 Patient Name: NEELA BARBA Unit No: [id number] EXAMS: CPT CODE: [id number] [place] NDL [address]88 FLUOROSCOPICALLY GUIDED ASPIRATION OF THE LEFT KNEE COMMENT: After informed consent was obtained a needle was placed in the knee joint with fluoroscopic guidance. Its position was confirmed with an AP radiograph. 0.1 minutes of fluoroscopy time was utilized. 6 mL of bloody fluid was aspirated and sent for analysis. No immediate complications were encountered. at 1123 Reportedand signed by: Rosendo Reed MD CC: Jatin Smith Technologist: SURINDER OCASIO RT(R) Transcribed D/T: 2018 (7500) tMARIELY [facility] NAME:NEELA BARBA [address] [place] [address] PHYS: Jatin Kearney : 1970 AGE: 48 SEX: J[place], [place] [address] LOC: Y.RAD PHONE #: [phone] EXAM DATE : 11/24/2018 STATUS: REG CLI FAX #: [phone] RAD #: D/C DT PAGE 1 Signed Report Patient Name: NEELA BARBA Unit No: [id number] EXAMS: CPT CODE: [id number] XR FLUORO NDL 18974 <Continued> Orig Print D/T: S: 11/24/2018 (1026) [facility] NAME : NEELA BARBA [address] [facility] PHYS: Jatin Kearney : 1970 AGE: 48 SEX: M [place], [place] [address] LOC: RANDY PHONE #: [phone] EXAM DATE: 11/24/2018 STATUS: REG CLI FAX#: [phone] RAD #: D/C DT PAGE 2Signed ReportCT LUMBAR WOCLINICAL INDICATION: M47.9 Spondylosis, unspecified low back painMODALITY: [employer] CT (Iterative dose reduction techniques are utilized.)TECHNIQUE: [...] These are further described on MRI lumbar spine.FINDINGS :COMPARISON: noneGeneral observations: Five non-rib bearing lumbar type vertebral bodies are present.Global fusions with instrumentation L4-S1. Interbody fusion cages/grafts are in good position incorporatedendplates with solid interbody fusions. Hardware is been removed on the left however remains on the right in good position without failure fracture or loosening. Bilateral posterior lateral bone fusionmasses solid L4-S1. Decompressive laminectomies L1 through S1.Moderate disc degeneration spondylosisL3-4 with degenerative retrolisthesis L3 on L4. Mild to moderate disc degeneration spondylosis L1-2 and L2-3 levels with degenerative retrolisthesis of L1-L2 and L2 and L3.Postsurgical changes noted indorsal paraspinal soft tissues without paraspinal soft tissue mass.Posterior disc protrusions/herniations noted at L1- 2 through L3-4 levels which are partially calcified and further described on the MRI report.No vertebral body collapse, lytic or blastic lesion.PQRS 436: [id number] (For official use only.)MRI LUMBAR WOCLINICAL INDICATION: M47.9 Spondylosis, unspecified low back pain radiating to both legs with weakness and numbness in both feet. History of lumbar fusion in March 2013 and hardware removal September 2013MODALITY: [employer]o 1.5 Renea 18 channel MRI TECHNIQUE: Multiplanar multi sequence MRI examinationof the lumbar spine was performed.IMPRESSION:1. Global fusion L4-5 and L5-S1 levels with decompressive laminectomies. No central canal narrowing. Foraminal narrowing as described below.2. Laminectomies T12-L1 through L2-3 levels.3. Probable mild arachnoiditis.4. Posterior disc herniations T12-L1 through L3-4 levels as described above. No significant central canal stenosis however there is some neural mass effect as described below.5. Remainder described belowFINDINGS: COMPARISON: noneGeneral observations: Five non-rib bearing lumbar type [...] soft tissue mass however postsurgical changes noted indorsal soft tissues.FINDINGS AT SPECIFIC LEVELS:L5-S1: No central canal stenosis. Mild to moderate left and mild right foraminal narrowing.L4-L5: No central canal stenosis. Mild bilateral foraminal narrowing.L3-L4: Mild degenerative retrolisthesis of L3 on L4 with six - 7 mm posterior disc herniation with mild caudad extrusion projecting into ventral epidural fat. This encroaches on at least left andprobably right L for root and only slightly indents ventral thecal sac. Post canal is decompressed with laminotomy/ laminectomy. No significant stenosis subarachnoid space. Degree of [...] foraminal disc osteophyte complexes without significant foraminal stenosisL1-L2 : Slight retrolisthesis L1-L2 with posterior broad-based disc [...] significant foraminal stenosis.T12-L1 shows 7-8 mm posterocentral softdisc herniation with slight cephalad extrusion mildly encroaching upon the lower thoracic cord/conuswithout compression. There is mild narrowing subarachnoid space.MRI CERVICAL WOCLINICAL INDICATION: M47.9 Spondylosis, gasuopgmyhtU48.90 Cervical disc disorder, unsp, unspecified cervical region [...]
--- OUTSIDE RECORDS SUMMARY | 2019-07-28 22:57 | XMS REPORT | Summary of Care ---
:1970 Author Organization [facility] - [facility] Address [address] [place] [address] Care Team Providers Name Role Phone Jesús Mata MD Primary Care Provider Reason for Referral (BENJA) Status Reason Specialty Diagnoses / Referred By Referred To Procedures Contact Contact New Request URO-UROLOGY Diagnoses Hematuria, unspecified type Chaoman, Roya Procedures Discharge Follow-Up: Specialty Service URO-UROLOGY; 1 Week Eleanor, BRICK CLEANER [address] [place] [address] MRI/CAT Scan (STAT) Status Reason Specialty Diagnoses / Referred By Referred To Procedures Contact Contact New Request Diagnostic Diagnoses Right sided abdominal pain Chaoman, Roya Radiology Procedures CT ABDOMEN PELVIS W CONTRAST Eleanor, BRICK CLEANER [address] [place] [address] Reason for Visit Reason Comments Abdominal Pain Auth/Cert Status Reason Specialty Diagnoses / Referred By Referred To Procedures Contact Contact Emergency Medicine Diagnoses ABD PAIN [facility] [address] [place] [address] [place] [address] Encounter Details Date Type Department Care Team Description 06/19/2019 Emergency [facility]-Emergency Chaoman, Roya Right sided abdominal pain (Primary Dx); Department Eleanor, BRICK CLEANER Hematuria, unspecified type; [address] [place] [address] Dr Pelletier [facility] Chronic low back pain with sciatica, sciatica laterality unspecified, [place] [address] [place], [place] [phone] Allergies Active Allergy Reactions Severity Noted Date Comments Ceftriaxone Sodium Hives Medium 09/30/2015 documented as of this encounter (statuses as of 06/19/2019) Medications Medication Sig Dispensed Refills Start Date End Date Status cyanocobalamin, Inject 1,000 mcg 0 Active vitamin B-12, as directed (PHYSICIANS EZ USE weekly. B-12) 1,000 mcg/mL injection HUMIRA PEN 40 mg/0.8 inject 40 mg under 1 06/27/2016 Active mL injection the skin every 2 (two) weeks. albuterol 2.5 mg /3 Inhale 3 mL every 1 Box 0 04/14/2019 Active mL (0.083 %) 4 (four) hours as nebulizer needed for solutionIndications: Wheezing or Bronchitis Shortness of Breath. promethazine-dextrom Take 5 mL by mouth 175 mL 0 04/14/2019 Active ethorphan 6.25-15 4 (four) times mg/5 mL daily as needed syrupIndications: for Cough. Bronchitis traMADol 50 mg Take 1 tablet by 20 tablet 0 06/19/2019 06/24/2019 Active tabletIndications: mouth every 6 Right sided (six) hours as abdominal pain needed for Pain (scale 7-10) for up to 5 days. documented as of this encounter (statuses as [...] Sign Reading Time Taken Comments Blood Pressure 119/88 06/19/2019 11:00 PM [employer] [employer]OW ASSOCIATE Pulse 74 06/19/2019 11:00 PM [employer]ISE [employer]OW ASSOCIATE Temperature 36.3 C (97.3 F) 06/19/2019 9:26 PM [employer]ISE [employer]OW ASSOCIATE Respiratory Rate 19 06/19/2019 11:00 PM [employer]ISE [employer]OW ASSOCIATE Oxygen Saturation 97% 06/19/2019 11:00 PM [employer]CH[employer]ISE [employer]OW ASSOCIATE Inhaled Oxygen Concentration - - Weight 114.3 kg (252 lb) 06/19/2019 9:26 PM [employer]CH[employer]ISE [employer]OW ASSOCIATE Height 172.7 cm (5' 8") 06/19/2019 9:26 PM [employer]ISE [employer]OW ASSOCIATE Body Mass Index 38.32 06/19/2019 9:26 PM [employer]ISE [employer] ASSOCIATE documented in this encounter Discharge Instructions Mani Roya Eleanor, RICH - 06/19/2019DIAGNOSIS 1. Abdominal pain 2. Urticaria 3. Back pain 4. Hematuria (blood in urine) NO LIFE-THREATENING FINDINGS ON TODAY'S EXAM. PROCEDURES IN THE ER TODAY: CT abd/pelvis, labs MEDICATIONS ADMINISTERED IN THE ER TODAY: Morphine, zofran YOUR PRESCRIPTIONS AND [id number] MEDICATION RECOMMENDATIONS: Tramadol ibuprofen 600 mg every 6 hours as needed for pain, take with food Tylenol 650 mg every 6 hours as needed for pain FOLLOW-UP RECOMMENDATIONS: RECOMMEND FOLLOW-UP WITH A PRIMARY CARE PROVIDER OR SPECIALIST IN 2-5 DAYS, ESPECIALLY IF NO IMPROVEMENT IN SYMPTOMS. TO FOLLOW-UP WITHIN THE [facility], TRY THESE OPTIONS (CLINIC APPOINTMENTS AVAILABLE ON [id number] BASIS): 1. SCHEDULE AN APPOINTMENT ONLINE AT WWW[facility] 2. OR CALL THE [facility]ESS [facility] AT OR 3. OR CALL YOUR [facility] PHYSICIAN'S OFFICE DIRECTLY IF YOU ARE ALREADY AN ESTABLISHED [facility] PATIENT. OR, YOU MAY FOLLOW-UP WITH A PROVIDER OF YOUR CHOICE, SUCH : 1. A PHYSICIAN OF YOUR CHOICE 2. [facility] AND [facility], . LOCATIONS IN [facility] 3. [facility], [address] [place] [address]; RETURN TO ER FOR WORSENING OF SYMPTOMS. Please follow up with your PCP in 1 week for reevaluation of symptoms Come back to the ER if you have worsening fevers over 100.4 F not controlled by tylenol or motrin, cannot tolerate fluids/ food, have not urinated in > 8 hours. Return to ER if you have worsening back pain not relieved by pain medications given, cannot urinate,defecate, or have no control of bowel or bladder, cannot walk. AttachmentsThe following attachments cannot be sent through Care Everywhere.Hematuria: Possible Causes ([place]gent[place])Abdominal Pain, Adult ([place]gent[place]) Back Pain (Acute or Chronic) ([place]gent[place])documented in this encounter Plan of Treatment Health Maintenance Due Date Last Done Comments PNEUMOCOCCAL 0-64 YEARS COMBINED SERIES (1 of - 1975 PPSV23) DTaP,Tdap,and Td Vaccines (1 - Tdap) 1980 INFLUENZA VACCINE (#1) 2019 COLONOSCOPY 2019 Zoster Recombinant Vaccine (SHINGRIX) (1 of 2) 2019 documented as of this encounter Implants Implanted Type Area Electronics Engineer Device Shelf Model / Identifier Expiration Serial / Lot Date Bone Cement Injector 1x40 W/Gentamicin Biomet Ref#[id number] - [id number] CEMENT Left: Biomet 03/12/2020 [id number] / Implanted: Qty: 1 on 03/10/2018 by Trevin Jin MD at [facility] Knee [id number] / [id number] Component Femoral Cementless 65mml Left Cruciate Vanguard Biomet Ref#[id number] Femur Left: Biomet 01/02/2028 [id number] / Implanted: Qty: 1 on 03/10/2018 by Trevin Jin MD at [facility] Knee [id number] / [id number] Bearing Tibial 12 X 71/75 Mm #[id number] - [id number] KNEE Left: Biomet 2021 [id number] / Implanted: Qty: 1 on 03/10/2018 by Trevin Jin MD at [facility] Knee [id number] / [id number] Stem Finned Primary 40mm Biomet #[id number] - [id number] Knee Stem Left: Biomet 02/20/2028 [id number] / Implanted: Qty: 1 on 03/10/2018 by Trevin Jin MD at [facility] Knee [id number] / [id number] Patella 34mm Vanguard Knee System Biomet #[id number] - [id number] PATELLA Left: Biomet [id number] / Implanted: Qty: 1 on 03/10/2018 by Trevin Jin MD at [facility] Knee 0 / [id number] Adc Plate Tibial Porous 75 Mm - [id number] PLATE Left: Biomet 11/29/2022 [id number] / Implanted: Qty: 1 on 03/10/2018 by Trevin Jin MD at [facility] Knee [id number] / [id number] Screw Bone 6.5x40mm Lp St Biomet #[id number] [[id number]] SCREW Left: Biomet [id number] / Implanted: Qty: 2 on 03/10/2018 by Trevin Jin MD at [facility] Knee [id number] / [id number] Screw Bone 6.5x30mm Lp St Biomet #[id number] - [id number] SCREW Left: Biomet 11/2027 [id number] / Implanted: Qty: 2 on 03/10/2018 by Trevin Jin MD at [facility] Knee [id number] / [id number] documented as of this encounter Procedures Procedure Name Priority Date/Time Associated Comments Diagnosis CT ABDOMEN PELVIS W STAT 06/19/2019 10:37 Right sided Results for this CONTRAST PM [employer]ISE [employer] ASSOCIATE abdominal pain procedure are in the results section. URINALYSIS STAT 06/19/2019 9:37 Right sided Results for this PM [employer]ISE [employer]OW ASSOCIATE abdominal pain procedure are in the results section. CBC WITH DIFFERENTIAL STAT 06/19/2019 9:33 Right sided Results for this PM [employer]ISE [employer]OW ASSOCIATE abdominal pain procedure are in the results section. CBC WITH DIFFERENTIAL STAT 06/19/2019 9:33 Right sided Results for this PM [employer]CH[employer]ISE [employer]OW ASSOCIATE abdominal pain procedure are in the results section. COMP. METABOLIC PANEL STAT 06/19/2019 9:33 Right sided Results for this (02377) PM [employer]ISE [employer]OW ASSOCIATE abdominal pain procedure are in the results section. LIPASE STAT 06/19/2019 9:33 Right sided Results for this PM [employer]CH[employer]ISE [employer]OW ASSOCIATE abdominal pain procedure are in the results section. documented in this encounter Results CT ABDOMEN PELVIS W CONTRAST (06/19/2019 10:37 PM MERCHANDISE FLOW ASSOCIATE) Specimen Impressions Performed At Impression: PACS/VR/DOSE 1. No acute inflammatory process identified. 2. Mild constipation. 3. Small fat-containing umbilical hernia. 4. Other ancillary findings as described. Location Code: 7827 Narrative Performed At Clinical statement:Abd infection (incl peritonitis) . Abdominal pain. PACS/VR/DOSE Ordering physician:Roya Redman Study: CT abdomen and pelvis with contrast. CT radiation dose protocol performed in accordance with principles of ALARA. Technique: Axial images were obtained from the lung bases through the pelvis following I. V. contrast administration. Comparison: None Abdomen:Lung bases are clear without pleural or pericardial effusion. SPECT a small cyst seen right kidney. Adrenal glands are normal. Left kidney is normal. Spleen is normal. Pancreas is unremarkable. Gallbladder and bile ducts are unremarkable. No solid liver lesion is seen. Stomach is underdistended. Main portal vein and proximal branches are patent. Aorta and branch vessels are unremarkable. Pelvis:Normal appendix is present. Tiny fat-containing umbilical hernia is seen. Mild constipation is seen. Fat-containing inguinal hernias are seen bilaterally. Bladder is decompressed. Distal ureters are normal. No mass, adenopathy, free air, obstruction, pneumatosis, inflammatory changes or collections are seen. Right hemifusion is seen from L4 through S1 with postsurgical changes and degenerative disease in the spine. No hardware complication seen. Procedure Note [facility], Radiant Results Inft User - 06/19/2019 10:51 PM MERCHANDISE FLOW ASSOCIATE Clinical statement:Abd infection (incl peritonitis) . Abdominal pain. Ordering physician:Roya Redman Study: CT abdomen and pelvis with contrast. CT radiation dose protocol performed in accordance with principles of ALARA. Technique: Axial images were obtained from the lung bases through the pelvis following I. V. contrast administration. Comparison: None Abdomen:Lung bases are clear without pleural or pericardial effusion. SPECT a small cyst seen right kidney. Adrenal glands are normal. Left kidney is normal. Spleen is normal. Pancreas is unremarkable. Gallbladder and bile ducts are unremarkable. No solid liver lesion is seen. Stomach is underdistended. Main portal vein and proximal branches are patent. Aorta and branch vessels are unremarkable. Pelvis:Normal appendix is present. Tiny fat-containing umbilical hernia is seen. Mild constipation is seen. Fat-containing inguinal hernias are seen bilaterally. Bladder is decompressed. Distal ureters are normal. No mass, adenopathy, free air, obstruction, pneumatosis, inflammatory changes or collections are seen. Right hemifusion is seen from L4 through S1 with postsurgical changes and degenerative disease in the spine. No hardware complication seen. IMPRESSION Impression: 1. No acute inflammatory process identified. 2. Mild constipation. 3. Small fat-containing umbilical hernia. 4. Other ancillary findings as described. Location Code: 7827 Performing Organization Address City/State/Zipcode Phone Number PACS/VR/DOSE URINALYSIS (06/19/2019 9:37 PM MERCHANDISE FLOW ASSOCIATE) APPEARANCE Clear Clear [facility] COLOR Yellow Yellow [facility] PH 5.0 4.8 - 8.0 [facility] SP GRAVITY 1.025 1.003 - 1.030 [facility] GLU U QUAL Normal Normal [facility] BLOOD 1+ (A) Negative [facility] KETONES Negative Negative [facility] PROTEIN Negative Negative [facility] UROBILIN 4.0 mg/dL (A) Normal [facility] BILIRUBIN Negative Negative [facility] NITRITE Negative Negative [facility] LEUK SONYA Negative Negative [facility] RBC/HPF 7 (H) 0 - 3 HPF [facility] WBC/HPF 1 0 - 5 HPF [facility] BACTERIA Negative Negative [facility] MUCOUS Slight (A) Negative LPF [facility] Specimen Urine - URINE, CLEAN CATCH Performing Organization Address City/[facility]/Zipcode Phone Number [facility] CLIA: [id number], [address] [place] [address] CBC WITH DIFFERENTIAL (06/19/2019 9:33 PM MERCHANDISE FLOW ASSOCIATE) WBC 9.16 4.20 - 10.70 [facility] 10*3/L [facility] RBC 5.02 4.26 - 5.52 [facility] 10*6/L [facility] HGB 15.0 12.2 - 16.4 [facility] g/dL [facility] HCT 43.8 38.4 - 49.3 % [facility] MCV 87.3 81.7 - 95.6 fL [facility] MCH 29.9 26.1 - 32.7 pg [facility] MCHC 34.2 31.2 - 35.0 [facility] g/dL [facility] RDW-SD 40.7 38.5 - 51.6 fL [facility] RDW-CV 13.0 12.1 - 15.4 % [facility] PLT 233 150 - 328 [facility] 10*3/L [facility] MPV 10.1 9.8 - 13.0 fL [facility] NRBC/100 WBC 0.0 0.0 - 10.0 /100 [facility] WBCs [facility] NRBC x10^3 <0.01 10*3/L [facility] GRAN MAT (NEUT) % 68.5 % [facility] IMM GRAN % 0.50 % [facility] LYMPH % 24.5 % [facility] MONO % 6.0 % [facility] EOS % 0.4 % [facility] BASO % 0.1 % [facility] GRAN MAT x10^3(ANC) 6.27 1.99 - 6.95 [facility] 10*3/uL [facility] IMM GRAN x10^3 0.05 0.00 - 0.06 [facility] 10*3/uL [facility] LYMPH x10^3 2.24 1.09 - 3.23 [facility] 10*3/uL [facility] MONO x10^3 0.55 0.36 - 1.02 [facility] 10*3/uL [facility] EOS x10^3 0.04 (L) 0.06 - 0.53 [facility] 10*3/uL [facility] BASO x10^3 <0.03 0.01 - 0.09 [facility] 10*3/uL [facility] Specimen Blood - VENOUS Performing Organization Address City/[facility]/Zipcode Phone Number [facility] CLIA: [id number], [address] [place] [address] LIPASE (06/19/2019 9:33 PM MERCHANDISE FLOW ASSOCIATE) LIPASE 114 0 - 220 U/L [facility] Specimen Blood - VENOUS Performing Organization Address City/[facility]/Zipcode Phone Number [facility] CLIA: [id number], [address] [place] [address] COMP. METABOLIC PANEL (42580) (06/19/2019 9:33 PM MERCHANDISE FLOW ASSOCIATE) NA 140 135 - 145 [facility] mmol/L [facility] K 4.1 3.5 - 5.0 [facility] mmol/L [facility] CL 104 98 - 108 mmol/L [facility] CO2 TOTAL 27 23 - 31 mmol/L [facility] AGAP 9 2 - 16 [facility] BUN 14 7 - 23 mg/dL [facility] GLUCOSE 112 (H) 70 - 110 mg/dL [facility] CREATININE 1.00 0.60 - 1.25 [facility] mg/dL [facility] TOTAL BILI 0.7 0.1 - 1.1 mg/dL [facility] CALCIUM 9.2 8.6 - 10.6 [facility] mg/dL [facility] T PROTEIN 7.7 6.3 - 8.2 g/dL [facility] ALBUMIN 4.8 3.5 - 5.0 g/dL [facility] ALK PHOS 82 34 - 122 U/L [facility] ALTv 60 (H) 5 - 50 U/L [facility] AST(SGOT) 48 (H) 13 - 40 U/L [facility] eGFR Calculation 79.1 mL/min/1.73m2 [facility] ([facility]ORATORY [place]) eGFR Calculation 95.9 mL/min/1.73m2 [facility] ([facility]) [facility] Specimen Blood - VENOUS Narrative Performed At Association of Glomerular Filtration Rate (GFR) [facility] and Staging of Kidney Disease* + + +- + | GFR (mL/min/1.73 m2) | With Kidney Damage | Without Kidney Damage + + +- + | >90 | Stage one | Normal + + +- + | 60-89 | Stage two | Decreased GFR + + +- + | 30-59 | Stage three | Stage three + + +- + | 15-29 | Stage four | Stage four + + +- + | <15 (or dialysis) | Stage five | Stage five + + +- + *Each stage assumes the associated GFR level has been in effect for at least three months. Stages 1 to 5, with or without kidney disease, indicate chronic kidney disease. Notes: Determination of stages one and two (with eGFR >59mL/min/1.73 m2) requires estimation of kidney damage for at least three months as defined by structural or functional abnormalities of the kidney, manifested by either: Pathological abnormalities or Markers of kidney damage (including abnormalities in the composition of the blood or urine or abnormalities in imaging tests). Performing Organization Address City/State/Zipcode Phone Number [facility] CLIA: [id number], [address] [place] [address] documented in this encounter Visit Diagnoses Diagnosis Right sided abdominal pain - Primary Abdominal pain, unspecified site Hematuria, unspecified type Chronic low back pain with sciatica, sciatica laterality unspecified, unspecified back pain laterality documented in this encounter Administered Medications Medication Order MAR Action Action Date Dose Rate Site iohexol (OMNIPAQUE 350 BULK-100 Given 06/19/2019 10:32 PM MERCHANDISE FLOW ASSOCIATE 120 mL mL) injection 120 mL 120 mL, Intravenous, ONCE, 1 dose, 06/19/19 at 2245, Routine morpHINE injection 4 mg Given 06/19/2019 10:13 PM MERCHANDISE FLOW ASSOCIATE 4 mg 4 mg, Slow IV Push, ONCE, 1 dose, 06/19/19 at 2300, STAT ondansetron (ZOFRAN (PF)) injection 4 mg Given 06/19/2019 10:12 PM MERCHANDISE FLOW ASSOCIATE 4 mg 4 mg, Slow IV Push, ONCE, 1 dose, 06/19/19 at 2300, BENJA documented in this encounter Insurance Payer Benefit Plan Subscriber ID Effective Dates Phone Address Type / Group [facility] [id number] 2016-Dari [phone] [address]/POS [place] t [id number] [place] [address] documented as of this encounter
[2019-07-28] MEDS ORDERED: METHYLPREDNISOLONE 125 MG INJ ONE (23:51)
[2019-07-28] MEDS ORDERED: FAMOTIDINE 20 MG/2 ML VIAL IV ONE (23:53)
[2019-07-29] MEDS ORDERED: MAGNE/ALUM HYDROXD 30 ML UCUP ONE (00:37)
[2019-07-29] MEDS ORDERED: LIDOCAINE VISCOUS 2% SOLN 15 ML UDC ONE (00:38)
--- NOTE | 2019-07-29 00:44 | ER ---
Nurse's Notes [facility] Name: Noah De La Fuente Age: 49 yrs Sex: Male : 1970 Arrival Date: 07/28/2019 Time: 22:58 Bed 18 Private MD: Diagnosis: Angioneurotic edema Presentation: 07/27 23:19 Chief complaint: Patient states: Hives to general body that began about 2030 tonight, lp1 took Benadryl at 2100; states [employer] noticed swelling to lip and feeling short of breath; Hives noted to general body, per patient, states they have improved. Coronavirus screen: The patient has NOT traveled to a country currently being monitored by the CDC within the last 14 days. The patient has NOT had contact with any known and/or suspected case of coronavirus. Ebola Screen: No symptoms or risks identified at this time. Initial Sepsis Screen: Does the patient meet any 2 criteria? No. Patient's initial sepsis screen is negative. Does the patient have a suspected source of infection? No. Patient's initial sepsis screen is negative. Risk Assessment: Do you want to hurt yourself or someone else? Patient reports no desire to harm self or others. Onset of symptoms was July 28, 2019 at 20:30. 23:19 Method Of Arrival: Ambulatory lp1 23:19 Acuity: TANVI 3 lp1 Triage Assessment: 23:22 General: Appears in no apparent distress. Behavior is calm. Respiratory: Reports lp1 shortness of breath Airway is patent Respiratory effort is even, unlabored, Respiratory pattern is regular, symmetrical, Breath sounds are clear bilaterally. Onset: The symptoms/episode began/occurred gradually, the patient has mild shortness of breath. Historical: - Allergies: 23:21 Rocephin; lp1 - Home Meds: 23:21 B 12 inj Q 2 weeks [Active]; Mildred inj weekly [Active]; lp1 - PMHx: 23:21 SVT; Rheumatoid Arthritis; B 12 deficiency; lp1 - PSHx: 23:21 back surgery; Knee surgery; lp1 - Immunization history:: Adult Immunizations up to date. - Social history:: Smoking status: Patient reports the use of cigarette tobacco products, smokes one-half pack cigarettes per day. Screenin:22 Abuse screen: Denies threats or abuse. Denies injuries from another. Nutritional lp1 screening: No deficits noted. Tuberculosis screening: No symptoms or risk factors identified. Fall Risk None identified. Assessment: 23:30 General: Appears in no apparent distress. Behavior is calm, cooperative, appropriate wh for age. Pain: Denies pain. Neuro: Level of Consciousness is awake, alert, obeys commands. Cardiovascular: Heart tones S1 S2 Rhythm is regular. Respiratory: Reports shortness of breath Airway is patent Respiratory effort is even, unlabored, Respiratory pattern is regular, symmetrical, Breath sounds are clear bilaterally. GI: Abdomen is flat, non-distended. : No signs and/or symptoms were reported regarding the genitourinary system. EENT: Throat is pink. Derm: Rash noted that is urticaria. Musculoskeletal: Circulation, motion, and sensation intact. 07/28 00:27 Reassessment: Patient appears in no apparent distress at this time. No changes from previously documented assessment. Patient and/or family updated on plan of care and expected duration. Pain level reassessed. Patient is alert, oriented x 3, equal unlabored respirations, skin warm/dry/pink. 01:28 Reassessment: Patient appears in no apparent distress at this time. No changes from previously documented assessment. Patient and/or family updated on plan of care and expected duration. Pain level reassessed. Patient is alert, oriented x 3, equal unlabored respirations, skin warm/dry/pink. Vital Signs: 07/27 23:19 BP 135 / 94; Pulse 79; Resp 18; Temp 98.4(O); Pulse Ox 98% on R/A; Weight 113.4 kg (R); lp1 Height 5 ft. 8 in. (172.72 cm); Pain 0/10; 18 00:38 BP 137 / 96; Pulse 74; Resp 18; Pulse Ox 98% on R/A; wh 01:28 BP 119 / 84; Pulse 68; Resp 18; Pulse Ox 98% on R/A; wh 07/27 23:19 Body Mass Index 38.01 (113.40 kg, 172.72 cm) lp1 ED Course: 07/27 22:58 Patient arrived in ED. ag3 23:16 Bhargav Koenig MD is Attending Physician. tw4 23:20 Triage completed. lp1 23:20 Arm band placed on. lp1 23:22 Patient has correct armband on for positive identification. lp1 23:25 Tierra Vance is Primary Nurse. 23:45 Inserted saline lock: 18 gauge in right antecubital area, using aseptic technique. Blood collected. 07/28 00:44 Skyler Orantes MD is Referral Physician. tw 00:44 Javon Gamboa MD is Referral Physician. tw4 01:28 No provider procedures requiring assistance completed. IV discontinued, intact, bleeding controlled, No redness/swelling at site. Administered Medications: 07/27 23:48 Drug: SOLU-Medrol 125 mg Route: IVP; Site: right antecubital; 07/28 01:30 Follow up: Response: No adverse reaction 07/27 23:50 Drug: Pepcid 20 mg Route: IVP; Site: right antecubital; 07/28 01:30 Follow up: Response: No adverse reaction 00:38 Drug: GI Cocktail without - (Maalox Suspension 30 ml, Lidocaine Liquid 2 % 15 wh ml) Route: PO; 01:30 Follow up: Response: No adverse reaction; Pain is decreased Outcome: 00:43 Discharge ordered by MD. tw4 01:29 Discharged to home ambulatory, with family. 01:29 Condition: stable 01:29 Discharge instructions given to patient, family, Instructed on discharge instructions, follow up and referral plans. medication usage, POC Demonstrated understanding of instructions, follow-up care, medications, POC Prescriptions given X 2. 01:30 Patient left the ED. Signatures: Haley Sharif RN RN lp1 Tierra Vance Bhargav Koenig MD MD 4 Trena Oakley 3
--- NOTE | 2019-07-29 00:44 | EDPHYS ---
Physician Documentation [facility] Name: Noah De La Fuente Age: 49 yrs Sex: Male : 1970 Arrival Date: 07/28/2019 Time: 22:58 Bed 18 Private MD: ED Physician Bhargav Koenig HPI: 07/28 04:48 This 49 yrs old Male presents to ER via Ambulatory with complaints of tw4 Shortness Of Breath, Allergic Reaction. 04:48 The patient has shortness of breath. tw4 04:48 The patient presents with swelling of the lips. The patient presents with wheezing. tw4 Onset: The symptoms/episode began/occurred today. Associated signs and symptoms: The patient has no apparent associated signs or symptoms. Possible causes: The patient has no known obvious cause for the symptoms. Severity of symptoms: At their worst the symptoms were moderate in the emergency department the symptoms are unchanged. The patient has not experienced similar symptoms in the past. Historical: - Allergies: 07/27 23:21 Rocephin; lp1 - Home Meds: 23:21 B 12 inj Q 2 weeks [Active]; Mildred inj weekly [Active]; lp1 - PMHx: 23:21 SVT; Rheumatoid Arthritis; B 12 deficiency; lp1 - PSHx: 23:21 back surgery; Knee surgery; lp1 - Immunization history:: Adult Immunizations up to date. - Social history:: Smoking status: Patient reports the use of cigarette tobacco products, smokes one-half pack cigarettes per day. ROS: 07/28 04:48 Constitutional: Negative for fever, chills, and weight loss, Eyes: Negative for injury, tw4 pain, redness, and discharge, Cardiovascular: Negative for chest pain, palpitations, and edema, Respiratory: Negative for shortness of breath, cough, wheezing, and pleuritic chest pain, Abdomen/GI: Negative for abdominal pain, nausea, vomiting, diarrhea, and constipation, Back: Negative for injury and pain, Skin: Negative for injury, rash, and discoloration, Neuro: Negative for headache, weakness, numbness, tingling, and seizure. Exam: 04:48 Constitutional: This is a well developed, well nourished patient who is awake, alert, tw4 and in no acute distress. Head/Face: Normocephalic, atraumatic. Chest/axilla: Normal chest wall appearance and motion. Nontender with no deformity. No lesions are appreciated. Cardiovascular: Regular rate and rhythm with a normal S1 and S2. No gallops, murmurs, or rubs. Normal PMI, no JVD. No pulse deficits. Respiratory: Lungs have equal breath sounds bilaterally, clear to auscultation and percussion. No rales, rhonchi or wheezes noted. No increased work of breathing, no retractions or nasal flaring. Abdomen/GI: Soft, non-tender, with normal bowel sounds. No distension or tympany. No guarding or rebound. No evidence of tenderness throughout. Back: No spinal tenderness. No costovertebral tenderness. Full range of motion. MS/ Extremity: Pulses equal, no cyanosis. Neurovascular intact. Full, normal range of motion. Neuro: Awake and alert, GCS 15, oriented to person, place, time, and situation. Cranial nerves II-XII grossly intact. Motor strength 5/5 in all extremities. Sensory grossly intact. Cerebellar exam normal. Normal gait. 04:48 ENT: Mouth: Lips: swelling lower lip. Vital Signs: 07/27 23:19 BP 135 / 94; Pulse 79; Resp 18; Temp 98.4(O); Pulse Ox 98% on R/A; Weight 113.4 kg (R); lp1 Height 5 ft. 8 in. (172.72 cm); Pain 0/10; 07/28 00:38 BP 137 / 96; Pulse 74; Resp 18; Pulse Ox 98% on R/A; wh 01:28 BP 119 / 84; Pulse 68; Resp 18; Pulse Ox 98% on R/A; wh 07/27 23:19 Body Mass Index 38.01 (113.40 kg, 172.72 cm) lp1 MDM: 07/27 23:16 Patient medically screened. tw4 07/28 04:49 Differential diagnosis: angioedema, urticaria. Data reviewed: vital signs, nurses tw4 notes. Data interpreted: Pulse oximetry: Interpretation:. Counseling: I had a detailed discussion with the patient and/or guardian regarding: the historical points, exam findings, and any diagnostic results supporting the discharge/admit diagnosis. Medication response: solumedrol. Response to treatment: the patient's symptoms have mildly improved after treatment, and as a result, I will discharge patient. ED course: Pt states that his swelling of his lip has improved. pt states that he has no difficulty swallowing or handling his secretions.. Administered Medications: 07/27 23:48 Drug: SOLU-Medrol 125 mg Route: IVP; Site: right antecubital; 07/28 01:30 Follow up: Response: No adverse reaction 07/27 23:50 Drug: Pepcid 20 mg Route: IVP; Site: right antecubital; 07/28 01:30 Follow up: Response: No adverse reaction 00:38 Drug: GI Cocktail without - (Maalox Suspension 30 ml, Lidocaine Liquid 2 % 15 wh ml) Route: PO; 01:30 Follow up: Response: No adverse reaction; Pain is decreased Disposition: 07/29/19 00:43 Discharged to Home. Impression: Angioneurotic edema. - Condition is Stable. - Discharge Instructions: Angioedema. - Prescriptions for Medrol (Bryce) 4 mg Oral Tablets, Dose Pack - take 1 tablet by ORAL route as directed - follow package instructions; 1 packet. Pepcid 20 mg Oral Tablet - take 1 tablet by ORAL route once daily; 20 tablet. - Medication Reconciliation Form, Thank You Letter, Antibiotic Education, Prescription Opioid Use form. - Follow up: Private Physician; When: Upon discharge from the Emergency Department; Reason: Recheck today's complaints, Continuance of care, Re-evaluation by your physician. Follow up: Skyler Orantes MD; When: Upon discharge from the Emergency Department; Reason: Recheck today's complaints, Continuance of care, Re-evaluation by your physician. Follow up: Javon Gamboa MD; When: Upon discharge from the Emergency Department; Reason: Recheck today's complaints, Continuance of care, Re-evaluation by your physician. - Problem is new. - Symptoms have improved. Signatures: Haley Sharif RN RN lp1 Tierra Vance Terrence, MD MD tw4 Corrections: (The following items were deleted from the chart) 00:44 00:43 07/29/2019 00:43 Discharged to Home. Impression: Angioneurotic edema. Condition tw4 is Stable. Forms are Medication Reconciliation Form, Thank You Letter, Antibiotic Education, Prescription Opioid Use. Follow up: Private Physician; When: Upon discharge from the Emergency Department; Reason: Recheck today's complaints, Continuance of care, Re-evaluation by your physician. Problem is new. Symptoms have improved. tw4 01:30 00:44 07/29/2019 00:43 Discharged to Home. Impression: Angioneurotic edema. Condition wh is Stable. Discharge Instructions: Angioedema. Prescriptions for Medrol (Bryce) 4 mg Oral Tablets, Dose Pack - take 1 tablet by ORAL route as directed - follow package instructions; 1 packet, Pepcid 20 mg Oral Tablet - take 1 tablet by ORAL route once daily; 20 tablet. and Forms are Medication Reconciliation Form, Thank You Letter, Antibiotic Education, Prescription Opioid Use. Follow up: Private Physician; When: Upon discharge from the Emergency Department; Reason: Recheck today's complaints, Continuance of care, Re-evaluation by your physician. Follow up: Skyler Orantes; When: Upon discharge from the Emergency Department; Reason: Recheck today's complaints, Continuance of care, Re-evaluation by your physician. Follow up: Javon [employer]; When: Upon discharge from the Emergency Department; Reason: Recheck today's complaints, Continuance of care, Re-evaluation by your physician. Problem is new. Symptoms have improved. tw4
[2019-07-29 01:41] VITALS: TEMP 98.4; O2SAT 98
[2019-07-29 01:44] VITALS: BP 119/84
== END 2019-07-29 01:30 | disposition home or self-care (01) ==
LOC: ER 22:54
DX: T78.3XXA Angioneurotic edema, initial encounter (principal); F17.210 Nicotine dependence, cigarettes, uncomplicated; Z88.1 Allergy status to other antibiotic agents
CPT/HCPCS: 96375; 96374; 99284; J2930

== ENCOUNTER 2019-08-13 10:10 | Emergency (ER) | payer BC ==
--- OUTSIDE RECORDS SUMMARY | 2019-08-13 10:13 | XMS REPORT ---
:1970 [facility] Address [address] [place] [address] Care Team Providers Name Role Phone Unavailable [...] (test code=HIV1AB) NONREACTIVE NONREACTIVE Done by [employer] 4[employer] Gen HIV Ag/Ab Combo Screen AB HIV 1 15:56:00 Test Item Value Reference Range Comments AB HIV 1 2 (test NONREACTIVE NONREACTIVE Done by [employer] 4th code=EZV23WU) Gen HIV Ag/Ab Combo Screen URINALYSIS [id number] 14:22:00 Test Item Value Reference Range Comments [...] (test code=BACU) NEGATIVE /HPF NONE COMPREHENSIVE METABOLIC [id number] 14:14:00 Test Item Value Reference Range Comments SODIUM (test code=NA) 145 mmol/L 136-145 POTASSIUM (test code=K) 4.6 mmol/L 3.5-5.1 CHLORIDE (test code=CL) 106.0 mmol/L 98-107 CARBON DIOXIDE (test code=CO2) 31.0 mmol/L 21-32 GLUCOSE (test code=GLU) 99 mg/dL 70-110 BLOOD UREA NITROGEN (test 12 mg/dL 7-18 code=BUN) GLOMERULAR FILTRATION RATE 104.2 >60 Unit of measure: (test code=GFR) mL/min/1.73 [id number] Range:Healthy Adults >90 mL/min/1.73 m2 For Chronic [...] TOTAL 94 U/L 46-116 (test code=ALKP) PROTHROMBIN [id number] 14:10:00 Test Item Value Reference Range Comments [...] intravascular valves IS PATIENT ON ANTICOAGULANTS ? [facility] been notified if Patient is on Heparin Drip? NOIf Yes, orderCBC, OCCULT BLOOD, PT every other day NTHROMBOPLASTIN TIME [id number] 14:10:00 Test Item Value Reference Range Comments PTT ACTIVATED (test code=APTT) 36.2 secs 24.9-37.0 IS PATIENT ON ANTICOAGULANTS ? [facility] been notified if Patient is on Heparin Drip? NOIf Yes, orderCBC, OCCULT BLOOD, PT every other day NCBC W/AUTO [id number] 13:40:00 Test Item Value Reference Range Comments [...] (test code=NRBC) 0 % 0-0 CBC W/AUTO [id number] 13:48:00 Test Item Value Reference Range Comments [...] CELL (test code=NRBC) 0 % 0-0 SED [id number] 13:48:00 Test Item Value Reference Range Comments SED RATE (test code=SEDW) 5 mm/hr 0-15 C REACTIVE [id number] 13:13:00 Test Item Value Reference Range Comments C REACTIVE PROTEIN (test code=CRP) < 0.2 mg/dL <0.[id number] 13:01:00 Test Item Value Reference Range Comments SYNOVIAL FLD COLOR (test BLOODY LT. YELLOW code=COLSY) SYNOVIAL FLD APPEARANCE BLOODY CLEAR (test code=APPSY) SYNOVIAL FLD VOLUME 2.0 mL (test code=VOLSY) SYNOVIAL FLD WBC (test 988.000 /MM3 0-200 code=WBCSY) SYNOVIAL FLD RBC (test 83010.000 /mm3 0-2 NOTE: An automated method is [...] COMMENT: ASPIRATED PER LEFT KNEE CELLCOUNTCBC W/AUTO [id number] 12:46:00 Test Item Value Reference Range Comments [...] CELL (test code=NRBC) 0 % 0-0 SED [id number] 12:46:00 Test Item Value Reference Range Comments SED RATE (test code=SEDW) mm/hr 0-[id number] 12:30:00 Test Item Value Reference Range Comments SYNOVIAL FLD COLOR (test LT. YELLOW code=COLSY) SYNOVIAL FLD APPEARANCE CLEAR (test code=APPSY) SYNOVIAL FLD VOLUME mL (test code=VOLSY) SYNOVIAL FLD WBC (test 988.000 /MM3 0-200 code=WBCSY) SYNOVIAL FLD RBC (test 04175.000 /mm3 0-2 NOTE: An automated method is code=RBCSY) now being used to determinesynovial fluid WBC and RBC counts. The differential willstill be performed manually. SPECIMEN COMMENT: ASPIRATED PER LEFT KNEE CELLCOUNT - XR FLUORO [id number] 11:23:00 Patient Name: NEELA BARBA Unit No: [id number] EXAMS: CPT CODE: [id number] [place] NDL [id number] FLUOROSCOPICALLY GUIDED ASPIRATION OF THE LEFT KNEE [...] Technologist: SURINDER OCASIO RT(R) Transcribed D/T: 2018 ([id number]) tMARIELY [facility] NAME:NEELA BARBA [address] [place] [address] PHYS: Jatin [place] : 1970 AGE: 48 SEX: Jai [place], [place] [address] LOC: Y.RAD PHONE #: [phone] EXAM DATE : 11/24/2018 STATUS: REG CLI FAX #: [phone] RAD #: D/C DT PAGE 1 Signed Report Patient Name: NEELA BARAB Unit No: [id number] EXAMS: CPT CODE: [id number] XR FLUORO NDL [id number] <Continued> Orig Print D/T: S: 11/24/2018 (3773) [facility] NAME : NEELA BARBA [address] [facility] PHYS: Jatin Kear[place] : 1970 AGE: 48 SEX: M [place], [place] [address] LOC: RANDY PHONE #: [phone] EXAM DATE: 11/24/2018 STATUS: REG CLI FAX#: [phone] RAD #: D/C DT PAGE 2Signed ReportCT LUMBAR WOCLINICAL INDICATION: M47.9 Spondylosis, unspecified low back painMODALITY: Siemens [place] CT (Iterative dose reduction techniques are utilized.)TECHNIQUE: [...] subarachnoid space.MRI CERVICAL WOCLINICAL INDICATION: M47.9 Spondylosis, [id number] Cervical disc disorder, unsp, unspecified cervical region [...]
[2019-08-13] MEDS ORDERED: FAMOTIDINE 20 MG/2 ML VIAL IV ONE (10:51)
[2019-08-13] MEDS ORDERED: DIPHENHYDRAMINE 50 MG/ML VIAL ONE (10:51)
[2019-08-13] MEDS ORDERED: METHYLPREDNISOLONE 125 MG INJ ONE (10:51)
--- NOTE | 2019-08-13 11:48 | EDPHYS ---
Physician Documentation [facility] Name: Noah De La Fuente Age: 49 yrs Sex: Male : 1970 Arrival Date: 08/13/2019 Time: 10:12 Bed 20 Private MD: ED Physician Magy Toro HPI: 08/12 10:41 This 49 yrs old Male presents to ER via Ambulatory with complaints of Allergic jr8 Reaction. 10:41 Onset: The symptoms/episode began/occurred gradually, 2 week(s) ago. Associated signs jr8 and symptoms: Pertinent positives: hives. Possible causes: The patient has no known obvious cause for the symptoms. Severity of symptoms: At their worst the symptoms were moderate. The patient has experienced a previous episode. The patient has not recently seen a physician. Patient was put on steroids and benadryl last week. Stated that it was doing fine. 2 days after finishing medications started to have hives and itching again. Sees deckhand oyster dredge tomorrow . Historical: - Allergies: 10:23 Rocephin; ss - PMHx: 10:23 b 12 deficiency; Rheumatoid Arthritis; SVT; ss - PSHx: 10:23 back surgery; Knee surgery; ss - Immunization history:: Adult Immunizations up to date. - Social history:: Smoking status: Patient denies any tobacco usage or history of. ROS: 10:41 Eyes: Negative for injury, pain, redness, and discharge, ENT: Negative for injury, jr8 pain, and discharge, Neck: Negative for injury, pain, and swelling, Cardiovascular: Negative for chest pain, palpitations, and edema, Respiratory: Negative for shortness of breath, cough, wheezing, and pleuritic chest pain, Abdomen/GI: Negative for abdominal pain, nausea, vomiting, diarrhea, and constipation, Back: Negative for injury and pain, MS/Extremity: Negative for injury and deformity, Neuro: Negative for headache, weakness, numbness, tingling, and seizure. 10:41 Skin: Positive for rash, swelling. Exam: 10:41 Eyes: Pupils equal round and reactive to light, extra-ocular motions intact. Lids and jr8 lashes normal. Conjunctiva and sclera are non-icteric and not injected. Cornea within normal limits. Periorbital areas with no swelling, redness, or edema. Neck: Trachea midline, no thyromegaly or masses palpated, and no cervical lymphadenopathy. Supple, full range of motion without nuchal rigidity, or vertebral point tenderness. No Meningismus. Cardiovascular: Regular rate and rhythm with a normal S1 and S2. No gallops, murmurs, or rubs. Normal PMI, no JVD. No pulse deficits. Respiratory: Lungs have equal breath sounds bilaterally, clear to auscultation and percussion. No rales, rhonchi or wheezes noted. No increased work of breathing, no retractions or nasal flaring. Abdomen/GI: Soft, non-tender, with normal bowel sounds. No distension or tympany. No guarding or rebound. No evidence of tenderness throughout. Back: No spinal tenderness. No costovertebral tenderness. Full range of motion. MS/ Extremity: Pulses equal, no cyanosis. Neurovascular intact. Full, normal range of motion. Neuro: Awake and alert, GCS 15, oriented to person, place, time, and situation. Cranial nerves II-XII grossly intact. Motor strength 5/5 in all extremities. Sensory grossly intact. Cerebellar exam normal. Normal gait. 10:41 ENT: Exam is negative for earache, ear discharge, TM abnormalities, nasal discharge, sinus tenderness, enlarged tonsils, dysphagia, exudate, mild lower lip swelling present. 10:41 Skin: rash a moderate rash is noted, rash can be described as urticarial, and is diffusely located. Vital Signs: 10:19 BP 128 / 94; Pulse 98; Resp 17; Temp 98.5(TE); Pulse Ox 99% on R/A; Weight 111.13 kg; ss Height 5 ft. 8 in. (172.72 cm); Pain 0/10; 12:50 BP 132 / 88; Pulse 89; Resp 17; Pulse Ox 99% on R/A; tw2 10:19 Body Mass Index 37.25 (111.13 kg, 172.72 cm) MDM: 10:38 Patient medically screened. jr8 11:46 Data reviewed: vital signs, nurses notes, and as a result, I will discharge patient. jr8 Data interpreted: Pulse oximetry: on room air is 99 %. Interpretation: normal. Counseling: I had a detailed discussion with the patient and/or guardian regarding: the historical points, exam findings, and any diagnostic results supporting the discharge/admit diagnosis, the need for outpatient follow up, a deckhand oyster dredge, a family practitioner, to return to the emergency department if symptoms worsen or persist or if there are any questions or concerns that arise at home. Response to treatment: the patient's symptoms have markedly improved after treatment. 08/12 10:39 Order name: IV; Complete Time: 10:43 jr8 Administered Medications: 10:50 Drug: Pepcid 20 mg Route: IVP; Site: right antecubital; tw2 10:52 Drug: SOLU-Medrol 125 mg Route: IVP; Site: right antecubital; tw2 10:54 Drug: Benadryl 25 mg Route: IVP; Site: right antecubital; tw2 Disposition: 16:23 Co-signature as Attending Physician, Magy Toro MD. ma2 Disposition: 08/13/19 11:47 Discharged to Home. Impression: Urticaria. - Condition is Stable. - Discharge Instructions: Anaphylactic Reaction, Adult, Hives. - Prescriptions for Hydroxyzine HCl 25 mg Oral Tablet - take 1 tablet by ORAL route every 6 hours As needed; 30 tablet. Prednisone 20 mg Oral Tablet - take 1 tablet by ORAL route once daily for 7 days; 7 tablet. - Medication Reconciliation Form, Thank You Letter, Antibiotic Education, Prescription Opioid Use form. - Follow up: Private Physician; When: Tomorrow; Reason: Recheck today's complaints, Continuance of care, Re-evaluation by your physician. - Problem is new. - Symptoms have improved. Signatures: Shanon Manzo RN RN Rinku Wilson PA PA jr8 Ruby Oscar RN RN tw2 Magy Toro MD MD ma2 Corrections: (The following items were deleted from the chart) 12:12 11:47 08/13/2019 11:47 Discharged to Home. Impression: Urticaria. Condition is Stable. ss Forms are Medication Reconciliation Form, Thank You Letter, Antibiotic Education, Prescription Opioid Use. Follow up: Private Physician; When: Tomorrow; Reason: Recheck today's complaints, Continuance of care, Re-evaluation by your physician. Problem is new. Symptoms have improved. jr8
--- NOTE | 2019-08-13 11:48 | ER ---
Nurse's Notes [facility] Name: Noah De La Fuente Age: 49 yrs Sex: Male : 1970 Arrival Date: 08/13/2019 Time: 10:12 Bed 20 Private MD: Diagnosis: Urticaria Presentation: 08/12 10:19 Chief complaint: Patient states: Rash and facial swelling that began 1 week ago. Pt was ss seen in ED a week ago and attempted to follow up with a lab instructor, but states, "nobody will see me." Pt is now out of prescriptions that were helping him. Coronavirus screen: Patient denies fever greater than 100.4F, cough, shortness of breath, or difficulty breathing. Proceed with normal triage process. Ebola Screen: Patient denies exposure to infectious person. Patient denies travel to an Ebola-affected area in the 21 days before illness onset. Onset: The symptoms/episode began/occurred 1 week(s) ago. Anaphylaxis evaluation, no signs or symptoms of anaphylaxis were noted. Initial Sepsis Screen: Does the patient meet any 2 criteria? Yes Does the patient have a suspected source of infection? No. Patient's initial sepsis screen is negative. Risk Assessment: Do you want to hurt yourself or someone else? Patient reports no desire to harm self or others. 10:19 Method Of Arrival: Ambulatory ss 10:19 Acuity: TANVI 3 ss Historical: - Allergies: 10:23 Rocephin; ss - PMHx: 10:23 b 12 deficiency; Rheumatoid Arthritis; SVT; ss - PSHx: 10:23 back surgery; Knee surgery; ss - Immunization history:: Adult Immunizations up to date. - Social history:: Smoking status: Patient denies any tobacco usage or history of. Screenin:11 Abuse screen: Denies threats or abuse. Denies injuries from another. Nutritional ss screening: No deficits noted. Tuberculosis screening: No symptoms or risk factors identified. Fall Risk None identified. Assessment: 10:20 General: Appears in no apparent distress. well groomed, Behavior is calm, cooperative, tw2 appropriate for age. Pain: Denies pain. Neuro: Level of Consciousness is awake, alert, obeys commands, Oriented to person, place, time, situation. Cardiovascular: Heart tones S1 S2 Capillary refill < 3 seconds Patient's skin is warm and dry. Respiratory: Reports shortness of breath Airway is patent Respiratory effort is even, unlabored, Respiratory pattern is regular, symmetrical, Breath sounds are clear bilaterally. GI: No signs and/or symptoms were reported involving the gastrointestinal system. : No signs and/or symptoms were reported regarding the genitourinary system. EENT: swelling noted to b/l lips and eyes. Reports. Derm: Reports increased itching, red raised whelps b/l upper extremities and pt reports on chest. Musculoskeletal: Range of motion: intact in all extremities. 12:11 Reassessment: Patient appears in no apparent distress at this time. Patient and/or ss family updated on plan of care and expected duration. Pain level reassessed. Patient is alert, oriented x 3, equal unlabored respirations, skin warm/dry/pink. Vital Signs: 10:19 BP 128 / 94; Pulse 98; Resp 17; Temp 98.5(TE); Pulse Ox 99% on R/A; Weight 111.13 kg; ss Height 5 ft. 8 in. (172.72 cm); Pain 0/10; 12:50 BP 132 / 88; Pulse 89; Resp 17; Pulse Ox 99% on R/A; tw2 10:19 Body Mass Index 37.25 (111.13 kg, 172.72 cm) ED Course: 10:12 Patient arrived in ED. mr 10:17 Rinku Wilson PA is PHCP. jr8 10:17 Magy Toro MD is Attending Physician. jr8 10:18 Ruby Oscar, CARROLL is Primary Nurse. tw2 10:23 Triage completed. ss 10:23 Arm band placed on right wrist. ss 10:40 Inserted saline lock: 20 gauge in right antecubital area, using aseptic technique. dh3 12:10 Bed in low position. Call light in reach. Pulse ox on. NIBP on. tw2 12:10 No provider procedures requiring assistance completed. IV discontinued, intact, ss bleeding controlled, No redness/swelling at site. Pressure dressing applied. Administered Medications: 10:50 Drug: Pepcid 20 mg Route: IVP; Site: right antecubital; tw2 10:52 Drug: SOLU-Medrol 125 mg Route: IVP; Site: right antecubital; tw2 10:54 Drug: Benadryl 25 mg Route: IVP; Site: right antecubital; tw2 Outcome: 11:47 Discharge ordered by MD. brandon 12:10 Discharged to home ambulatory. 12:10 Condition: improved 12:10 Discharge instructions given to patient, Instructed on discharge instructions, follow up and referral plans. Demonstrated understanding of instructions, follow-up care, medications, Prescriptions given X 2. 12:12 Patient left the ED. Signatures: Elaina Hanna Shelby, RN RN Rinku Wislon PA PA jr8 Ruby Oscar RN RN tw2 Monse Zeng 3
[2019-08-13 12:20] VITALS: BP 128/94; TEMP 98.5; O2SAT 99
== END 2019-08-13 12:12 | disposition home or self-care (01) ==
LOC: ER 10:10
DX: L50.9 Urticaria, unspecified (principal); Z88.1 Allergy status to other antibiotic agents
CPT/HCPCS: 96375; 96374; 99284; J1200; J2930

== ENCOUNTER 2020-02-09 12:29 | Observation (INO) | payer BC ==
--- OUTSIDE RECORDS SUMMARY | 2020-02-09 12:32 | XMS REPORT | Summary of Care ---
:1970 Author Organization [facility] Address [address] [place] [id number] Care Team Providers Name Role Phone Shen Diego MD Primary Care Provider Reason for Visit Reason Comments Blood Draw Encounter Details Date Type Department Care Team Description 12/28/2019 Director Of Promotions Visit [facility] Jayden Mota MD [address] [place] [address] Rash and other MULTISPECIALTY [facility] nonspecific skin [address] [place] [address] Allergies Active Allergy Reactions Severity Noted Date Comments Ceftriaxone Sodium Hives Medium 09/30/2015 documented as of this encounter (statuses as of 12/28/2019) Medications Medication Sig Dispensed Refills Start Date [...] 5 mL by mouth 175 mL 0 9 Active thorphan 6.25-15 mg/5 4 (four) times mL syrupIndications: daily as needed for Bronchitis Cough. documented as of this encounter (statuses as of 12/28/2019) Active Problems Problem Noted Date Obesity (BMI 30-39.9) 03/10/2018 Total knee replacement status 03/10/2018 Pain 10/03/2015 documented as of this encounter (statuses as of 12/28/2019) Social History Tobacco Use Types Packs/Day Years Used Date Current Every Day Smoker Cigarettes 0.5 Smokeless Tobacco: Never Used Alcohol Use Drinks/Week oz/Week Comments No 0 Standard drinks or equivalent 0.0 Sex Assigned at Date Recorded Not on file documented as of this encounter Last Filed Vital Signs Not on filedocumented in this encounter Nursing Notes Ange Falk - 12/28/2019 2:30 PM CDT Venipuncture collection performed by clean technique on the right anticubitus. Total of 1 attempts were made. Slight pressure and a bandage/dressing were applied to the site(s). The patient experiencedno complications. The following specimens were processed according to instructions and sent to [facility] laboratories per lab order on 12/28/2019: LT BLUE SST 1 RED LAV PPT DK GREEN (LiHep) DK GREEN (SodH) BRIONES DK BLUE (K2) DK BLUE (S) ACD Blood Culture NIPT/NTD documented in this encounter Plan of Treatment Health Maintenance Due Date Last Done Comments PNEUMOCOCCAL 0-64 YEARS COMBINED SERIES (1 of 3 - 1975 PCV13) DTaP,Tdap,and Td Vaccines (1 - Tdap) 1988 COLON CANCER SCREENING ANNUAL FIT/FOBT 2019 COLON CANCER SCREENING FIT DNA EVERY 3 YEARS 2019 COLON CANCER SCREENING SIGMOIDOSCOPY EVERY 5 YEARS 2019 COLONOSCOPY 2019 Colorectal Cancer Screening 2019 Zoster Recombinant Vaccine (SHINGRIX) (1 of 2) 2019 INFLUENZA VACCINE (#1) 2020 Depression Screening 04/14/2020 04/14/2019 documented as of this encounter Implants Implanted Type Area Tire Duster Device Shelf Model / Identifier Expiration Serial / Lot Date Bone Cement Injector 1x40 W/Gentamicin Biomet Ref#[id number] - [id number] CEMENT Left: Biomet 03/12/2020 [id number] / Implanted: Qty: 1 on 03/10/2018 by Trevin Willis MD at [facility] Knee 7 [id number] / [id number] Component Femoral Cementless 65mml Left Cruciate Oliver uard Biomet Ref#[id number] Femur Left: Biomet 01/02/2028 [id number] / Implanted: Qty: 1 on 03/10/2018 by Trevin Willis MD at [facility] Knee 9 [id number] / [id number] Bearing Tibial 12 X 71/75 Mm #[id number] - [id number] KNEE Left: Bio met 12/21/2021 [id number] / Implanted: Qty: 1 on 03/10/2018 by Trevin Willis MD at [facility] Knee 6 [id number] / [id number] Stem Finned Primary 40mm Biomet #[id number] - [id number] Knee Stem Left: Biomet 02/20/2028 [id number] / Implanted: Qty: 1 on 03/10/2018 by Trevin Willis MD at [facility] Knee 2 [id number] / [id number] Patella 34mm Vanguard Knee System Biomet #[id number] - [id number] PATELLA Left: Biomet [id number] / Implanted: Qty: 1 on 03/10/2018 by Trevin Willis MD at [facility] Knee 0 / [id number] Adc Plate Tibial Porous 75 Mm - [id number] PLATE Left: Biomet 11/29/2022 [id number] / Implanted: Qty: 1 on 03/10/2018 by Trevin Willis MD at [facility] Knee 0 [id number] / [id number] Screw Bone 6.5x40mm Lp St Biomet #[id number] [[id number]] SCREW Left: Biomet 12/01/2027 [id number] / Implanted: Qty: 2 on 03/10/2018 by Trevin Willis MD at [facility] Knee 5 [id number] / [id number] Screw Bone 6.5x30mm Lp St Biomet #[id number] - [id number] SCREW Left: Biomet 12/18/2027 [id number] / Implanted: Qty: 2 on 03/10/2018 by Trevin Willis MD at [facility] Knee 8 [id number] / [id number] documented as of this encounter Results Not on filedocumented in this encounter Visit Diagnoses Diagnosis Rash and other nonspecific skin eruption documented in this encounter Insurance Payer Benefit Plan Subscriber ID Effective Dates Phone Address Type / Group [phone] [address] PPO/POS [place] t 7 [id number] [place] [address] documented as of this encounter
--- OUTSIDE RECORDS SUMMARY | 2020-02-09 12:32 | XMS REPORT | Summary of Care ---
:1970 Author Organization [facility] Address [address] [place] [address] Care Team Providers Name Role Phone Shen Diego MD Primary Care Provider Reason for Visit Reason Comments New Evaluation Encounter Details Date Type Department Care Team Description 12/28/2019 Office Visit [facility] Gray Chua MD [address] [place] [address] [id number] [place], [place] [id number] Rash and other Dermatology, Milagro Rebollar MD [address] [place] [phone] nonspecific skin [facility] [address] [place] [address] eruption (Primary Dx) [address] [facility], [facility] [place] [address] Allergies Active Allergy Reactions Severity [...] Signs Not on filedocumented in this encounter Progress Notes Marilyn Ackerman - 12/28/2019 1:45 PM CDT Cc: rash HPI Noah De La Fuente is a 49 year old male is a new patient who is here for a skin rash in several areas including his arms bilaterally, legs bilaterally, abdomen hands, neck and sometimes face. They began appearing "around COVID" intermittently. The spots appear in new locatoins every time. Reports they are both itchy and painful. Heat and sun make it worse. He went to a PCP who gave him Xolair injection lastweek that did not improve. He is also taking Hydroxyzine 25mg TID. Xyzal BID. Pepcid BID with no improvement. PCP referred him to Derm for biopsy. Of note, he has rheumatoid arthritis. He is currently untreated by was previously on Humira. Treatment has lapsed because he is unable to get an appointment during COVID.He thinks his rash started soonafter stopping humira and after COVID started. Histories Past Medical History: Diagnosis Date Chronic back pain Pernicious anemia RA (rheumatoid arthritis) SVT (supraventricular tachycardia) (-) hx of skin cancer (-) family hx of skin cancer Social Hx: Lives in [place], [place] Allergies Allergies Allergen Reactions Rocephin [Ceftriaxone Sodium] Hives Medications Current Outpatient Medications on File Prior to Visit Medication Sig Dispense Refill albuterol 2.5 mg /3 mL (0.083 %) nebulizer solution Inhale 3 mL every 4 (four) hours as needed for Wheezing or Shortness of Breath. 1 Box 0 promethazine-dextromethorphan 6.25-15 mg/5 mL syrup Take 5 mL by mouth 4 (four) times daily as needed for Cough. 175 mL 0 HUMIRA PEN 40 mg/0.8 mL injection inject 40 mg under the skin every 2 (two) weeks. 1 cyanocobalamin, vitamin B-12, (PHYSICIANS EZ USE B-12) 1,000 mcg/mL injection Inject 1,000 mcg as directed weekly. No current facility-administered medications on file prior to visit. Review of Systems Constitutional: negative Skin: itching (+), pain (-), bleeding (-), rash (+) Physical Exam Positive (+), Negative (-) General : No acute distress Psychiatric: Normal affect, thoughts coherent Pulmonary: Breathing unlabored Neuro: Awake, alert, speech normal FACE: Negative CHEST: Positive RIGHT ARM: See image LEFT ARM: Positive (-)=Negative,(+)=Positive Actinic Keratosis (A): erythematous scaling papules Aaron Hemaniogioma (CH): smooth red and purple papules Dermatitis Erythema (DE): mild to moderate erythema and scaling Dermatitis Lichenified (DL): lichenification and thickening Dermatitis Weeping (DW): weeping and excoriation Inflamed Seborrheic Keratosis (ISK): inflamed warty brown papules and plaques Millium (ML): Small white cystic papule Molluscum Contagiosum (MC): umbilicated papule Nevus Macular (NM): well circumscribed evenly pigmented macule Nevus Papular (SALES OPERATIONS SPECIALIST): well circumscribed evenly pigmented papule Psoriasis Circumscribed (PC): well circumscribed erythema and scaling Psoriasis Diffuse (PD): diffuse patches of erythema and scaling Seborrheic Keratosis (SK): verrucous brown papules and plaques Scar (SR): cicatricial change Verruca Vulgarus (W): warty hyperkeratotic papule Assessment/Plan 1. Rash: trunk and extremities - DDX: Urticaria r/o urticarial vasculitis vs other - Discussed possible etiologies and treatment options, including risks and benefits. - Labs today: SARS-COV-2 IgG - TANGENTIAL BIOPSY: Risks discussed (pain, infection, bleeding, scarring). Verbal consent obtained.Area prepped with alcohol. Local anesthesia obtained with 1% lidocaine with epinephrine. 1 cm tangential biopsy performed. Specimen sent to pathology for analysis. Patient to be contacted with results.Hemostasis obtained with aluminum chloride. Petrolatum and bandage applied. Wound care discussed. - Continue with treatment per outside provider for now (hydroxyzine, Xyzal, pepcid, prednisone, Xolair) - Will discuss changes to treatment plan pending biopsy results RTC: schedule followed pending biopsy results IVinayak, am scribing for, and in the presence of, Marilyn Ackerman ; Marilyn Ackerman performed and/or ordered the services described here-in. Vinayak Byrd 12/28/2019 14:17 IMarilyn, personally performed the services described in this documentation , as scribed by, Vinayak Byrd in my presence and it is both accurate and complete. Marilyn Ackerman December 28, 2019, 4:25 PM documented in this encounter Plan of Treatment Name Type Priority Associated Diagnoses Date/Ti me SARS-COV-2 IGG LAB Routine Rash and other nonspecific skin 12/28/2019 2:41 PM CDT eruption Health Maintenance Due Date Last Done Comments [...] of this encounter Implants Implanted Type Area Gasoline Catalyst Operator Device Shelf Model / Identifier Expiration Serial / Lot Date Bone Cement Injector 1x40 W/Gentamicin Biomet Ref#1100 [id number] - [id number] CEMENT Left: Biomet 03/12/2020 [id number] / Implanted: Qty: 1 on 03/10/2018 by Trevin Willis MD at [facility] Knee 7 [id number] / [id number] Component Femoral Cementless 65mml Left Cruciate Oliver uard Biomet Ref#[id number] Femur Left: Biomet 01/02/2028 [id number] / Implanted: Qty: 1 on 03/10/2018 by Trevin Willis MD at [facility] Knee 9 [id number] / [id number] Bearing Tibial 12 X 71/75 Mm #[id number] - [id number] KNEE Left: Bio met 12/21/2021 [id number] / Implanted: Qty: 1 on 03/10/2018 by Trevin Willis MD at [facility] Knee 6 [id number] / [id number] Stem Finned Primary 40mm Biomet #[id number] - [id number] Knee Stem Left: Biomet 02/20/2028 [id number] / Implanted: Qty: 1 on 03/10/2018 by Trevin Willis MD at [facility] Knee 2 [id number] / [id number] Patella 34mm Vanguard Knee System Biomet #[id number] - [id number] PATELLA Left: Biomet [id number] / Implanted: Qty: 1 on 03/10/2018 by Trevin Willis MD at [facility] Knee 0 / [id number] Adc Plate Tibial Porous 75 Mm - [id number] PLATE Left: Biomet 11/29/2022 [id number] / Implanted: Qty: 1 on 03/10/2018 by Trevin Willis MD at [facility] Knee 0 [id number] / [id number] Screw Bone 6.5x40mm Lp St Biomet #[id number] [[id number]] SCREW Left: Biomet 12/01/2027 [id number] / Implanted: Qty: 2 on 03/10/2018 by Trevin Willis MD at [facility] Knee 5 [id number] / [id number] Screw Bone 6.5x30mm Lp St Biomet #[id number] - [id number] SCREW Left: Biomet 12/18/2027 [id number] / Implanted: Qty: 2 on 03/10/2018 by Trevin Willis MD at [facility] Knee 8 [id number] / [id number] documented as of this encounter Results Not on filedocumented in this encounter Visit Diagnoses Diagnosis Rash and other nonspecific skin eruption - Primary documented in this encounter Insurance Payer Benefit Plan Subscriber ID Effective Dates Phone Address Type / Group [facility] [id number] 2015-[place] [phone] [address] PPO/POS [place] t 7 [id number] [place] [address] documented as of this encounter
--- OUTSIDE RECORDS SUMMARY | 2020-02-09 12:32 | XMS REPORT | Continuity of Care Document ---
:1970 Author Organization [facility] t Address [address] [place] [address] Care Team Providers Name Role Phone Meka Attending Clinician Doctor Unassigned, Name Attending Clinician Unavailable SANDRA Attending Clinician Unavailable YOLIE Attending Clinician Unavailable Payers Payer Name Policy Type Policy Number Effective Date Expiration Date S ource Problems Condition Condition Condition Status Onset Resolution Last Treating Co mments Source Name Details Category Date Date Treatment Clinician Date Lower back Lower back Problem Active [facility] [place] [facility] Joint pain Joint pain Problem Active [facility] of lower [place] [facility] S/P total S/P total Problem Active Uni vers knee knee [place] [facility] Left knee Left knee Problem Active [facility] pain [facility] [place] [facility] Allergies, Adverse Reactions, Alerts Allergy Allergy Status Severity Reaction(s) Onset Inactive Treating Comm ents Source Name Type Date Date Clinician ceftriax DA Active SV [facility] [place] ceftriax DA Active SV 2012-05 [facility] - Clear sodium 00:00: Mcgarry [address] [place] [address] Social History Smoking Status Start Date Stop Date Source Never smoker [facility] Medications Ordered Filled Start Stop Current Ordering Indication Dosage Frequency Signature Comments Components Source Medication Medication Date Date Medication? Clinician (SIG) Name Name B-12 TABS B-12 TABS Yes [facility] [place] [facility] HumaLOG HumaLOG Yes Univers SOLN SOLN [facility] [place] [facility] Vital Signs Vital Name Observation Time Observation Value Comments Source BP Systolic 2018-06-30 138 mm[Hg] Location: [facility]; [facility] 14:51:00 Position: [place] [facility] Sitting BP Diastolic 2018-06-30 79 mm[Hg] Location: [facility]; [facility] 14:51:00 Position: [place] [facility] S[facility] Height 2018-06-30 68 [in_us] [facility] 14:51:00 [place] [facility] Weight 2018-06-30 240 [lb_av] [facility] 14:51:00 [place] [facility] Body Mass Index 2018-06-30 36.49 kg/m2 [place] [facility] Calculated 14:51:00 [place] [facility] Heart Rate 2018-06-30 96 /min [facility] 14:51:00 [place] [facility] Procedures Procedure Date / Time Performed Performing Clinician Sour e History of Back [facility] History of Knee [facility] Encounters Start End Encounter Admission Attending Care Care Encounter Source Date/Time Date/Time Type Type Clinicians Facility Department ID 2020-01-15 2020-01-15 Telephone [facility] [id number] 00:00:00 00:00:00 Marilyn MULTISPEC [id number] IALTY [id number] [place] [id number] [facility] 2020-01-15 2020-01-15 Orders Doctor LORENA [id number] 00:00:00 00:00:00 Only Unassigned, JUAN MIGUEL [id number] [place] [address]686 [id number] 2020-01-04 2020-01-04 [id number] 00:00:00 00:00:00 Krannyna MULTISPEC [id number] IALTY [id number] [place] [id number] [facility] 2019-12-28 2019-12-28 Office LORETO Ackerman [id number] 13:26:55 16:26:07 Visit Marilyn DEL [place]ST[place] [id number] [place] [id number] [place] [id number] AND [facility] 2018-06-30 2018-06-30 Appointmen SADA FLORES [id number] Univers 14:30:00 14:30:00 t; TAMMY FLORES, Orthopedic [facility] ans 2017-06-06 2017-06-06 Appointmen SADA URBANO [id number] Univers 10:30:00 10:30:00 t; NEENA URBANO of [facility] [place] [facility] Results Test Description Test Time Test Comments Results Result Comments Source AB HIV 1 2018-12-08 15:57:00 Test Item Value Reference Range Interpretation Comme nts AB HIV 1 (test code = HIV1AB) NONREACTIVE NONREACTIVE Done by Siemens Centaur 4th Gen HIV Ag/Ab C ombo Screen AB HIV 1 15:56:00 Test Item Value Reference Range Interpretation Comments AB HIV 1 2 (test NONREACTIVE NONREACTIVE Done by AgreeYa Mobility - Onvelopaur code = [id number]) 4th Gen HIV Ag/Ab Combo Screen URINALYSIS [id number] 14:22:00 Test Item Value Reference Range Interpretation Comments UA COLOR (test code = COLU) YELLOW YELLOW UA APPEARANCE (test code = CLEAR CLEAR APPU) UA GLUCOSE DIPSTICK (test code NEGATIVE NEGATIVE = DGLUU) UA BILIRUBIN DIPSTICK (test NEGATIVE NEGATIVE code = BILU) UA KETONE DIPSTICK (test code NEGATIVE mg/dL NEGATIVE = KETU) UA SPECIFIC GRAVITY (test code 1.025 1.003-1.035 = SGU) UA BLOOD DIPSTICK (test code = 1+ NEGATIVE A RASHARD) UA PH DIPSTICK (test code = 5.5 >6.5 CORNEL) UA PROTEIN DIPSTICK (test code NEGATIVE mg/dL NEG = PROU) UA UROBILINIOGEN DIPSTICK 0.2 mg/dL NORM (test code = URO) UA NITRITE DIPSTICK (test code NEGATIVE NEG = BEVERLY) UA LEUKOCYTE ESTERASE DIPSTICK NEGATIVE NEGATIVE (test code = LEUU) UA WBC (test code = WBCU) NONE /HPF 0-2 UA RBC (test code = RBCU) NONE /HPF 0-2 UA EPITHELIAL CELLS (test code RARE /HPF 0-2 = EPIU) UA BACTERIA (test code = BACU) NEGATIVE /HPF NONE COMPREHENSIVE METABOLIC [id number] 14:14:00 Test Item Value Reference Range Interpretation Comments SODIUM (test code = 145 mmol/L 136-145 N NA) POTASSIUM (test code = 4.6 mmol/L 3.5-5.1 N K) CHLORIDE (test code = 106.0 mmol/L 98-107 N CL) CARBON DIOXIDE (test 31.0 mmol/L 21-32 N code = CO2) GLUCOSE (test code = 99 mg/dL 70-110 N GLU) BLOOD UREA NITROGEN 12 mg/dL 7-18 N (test code = BUN) GLOMERULAR FILTRATION 104.2 >60 Unit o f measure: RATE (test code = GFR) mL/mi n/1.73 [id number] Range:Healthy Adults >90 mL/min/1.73 m2 For Chronic Kidney Disease: St age II Mild Decrease in GFR 60-90 St age III Moderate Decrease in GFR 30-59 Stage IV Severe Decre ase in GFR 15- 29 Stage V Kidney Failure <15 CREATININE (test code 0.79 mg/dL 0.55-1.30 N = CREAT) TOTAL PROTEIN (test 7.1 g/dL 6.4-8.2 N code = PROT) ALBUMIN (test code = 4.1 g/dL 3.4-5.0 N ALB) GLOBULIN (test code = 3.0 g/dL 2.2-4.2 N GLOB) ALBUMIN/GLOBULIN RATIO 1.4 0.7-2.0 N (test code = A/G) CALCIUM (test code = 8.7 mg/dL 8.2-10.1 N CA) BILIRUBIN TOTAL (test 0.60 mg/dL 0.2-1.00 N code = BILT) SGOT/AST (test code = 21.0 U/L 15-37 N AST) SGPT/ALT (test code = 34.0 U/L 12-78 N Please note new ALT) normal range. ALKALINE PHOSPHATASE 94 U/L 46-116 N TOTAL (test code = ALKP) PROTHROMBIN [id number] 14:10:00 Test Item Value Reference Range Interpretation Comments PROTHROMBIN TIME 10.8 secs 10.1-12.5 N PATIENT (test code = PTP) INTERNATIONAL NORMAL 0.96 <2.0 RECOMME NDED THERAPEUTIC RATIO (test code = RANGE FOR ORAL INR) ANTICOAGULANTTR EATMENT: CONDI TION INRProphylaxis of venous thrombos is in 2.0 - 3.0 high-risk medic al or surgical patientsTreatme nt of venous thrombos is 2.0 - 3.0Prevention o f embolism 2.0 - 3.0Prevention o f recurrent embol ism, or 3.0 - 4. 5 patients with mechanical pros thetic intravascular v vargas IS PATIENT ON ANTICOAGULANTS ? SDas Lab been notified if Patient is on Heparin Drip? NOIf Yes, orderCBC, OCCULT BLOOD, PT every other day NTHROMBOPLASTIN TIME [id number] 14:10:00 Test Item Value Reference Range Interpretation Comments PTT ACTIVATED (test code = APTT) 36.2 secs 24.9-37.0 N IS PATIENT ON ANTICOAGULANTS ? SDas Lab been notified if Patient is on Heparin Drip? NOIf Yes, orderCBC, OCCULT BLOOD, PT every other day NCBC W/AUTO DIFF 2018-12-08 13:40:00 Test Item Value Reference Range Interpretation Comments WHITE BLOOD CELL (test code = WBC) 7.9 K/mm3 5.7-10.5 N RED BLOOD CELL (test code = RBC) 4.87 M/mm3 4.2-5.4 N HEMOGLOBIN (test code = HGB) 14.8 g/dL 12-16 N HEMATOCRIT (test code = HCT) 43.4 % 37-47 N MEAN CELL VOLUME (test code = MCV) 89 fL 80-98 N MEAN CELL HGB (test code = MCH) 30.4 pg 27-34 N MEAN CELL HGB CONCENTRATION (test 34.1 g/dL 30.8-34.1 N code = MCHC) RED CELL DISTRIBUTION WIDTH (test 12.8 % 11-16 N code = RDW) PLT (test code = PLT) 228 K/mm3 130-400 N MEAN PLATELET VOLUME (test code = 10.9 fL 8.9-12.1 N MPV) NEUTROPHIL % (test code = NT%) 63.4 % 45-70 N LYMPHOCYTE % (test code = LY%) 25.9 % 20-40 N MONOCYTE % (test code = MO%) 6.9 % 3-10 N EOSINOPHIL % (test code = EO%) 2.5 % 1-5 N BASOPHIL % (test code = BA%) 0.8 % 0.0-1.1 N NEUTROPHIL # (test code = NT#) 4.99 K/mm3 2.00-7.50 N LYMPHOCYTE # (test code = LY#) 2.04 K/mm3 1.50-4.00 N MONOCYTE # (test code = MO#) 0.54 K/mm3 0.2-0.8 N EOSINOPHIL # (test code = EO#) 0.20 K/mm3 0.04-0.4 N BASOPHIL # (test code = BA#) 0.06 K/mm3 0.02-0.10 N MANUAL DIFF REQUIRED (test code = NO MANUAL DIFF MDIFF) NUCLEATED RED BLOOD CELL (test 0 % 0-0 N code = NRBC) CBC W/AUTO [id number] 13:48:00 Test Item Value Reference Range Interpretation Comments WHITE BLOOD CELL (test code = WBC) 7.8 K/mm3 5.7-10.5 N RED BLOOD CELL (test code = RBC) 5.00 M/mm3 4.2-5.4 N HEMOGLOBIN (test code = HGB) 14.9 g/dL 12-16 N HEMATOCRIT (test code = HCT) 44.8 % 37-47 N MEAN CELL VOLUME (test code = MCV) 90 fL 80-98 N MEAN CELL HGB (test code = MCH) 29.8 pg 27-34 N MEAN CELL HGB CONCENTRATION (test 33.3 g/dL 30.8-34.1 N code = MCHC) RED CELL DISTRIBUTION WIDTH (test 12.8 % 11-16 N code = RDW) PLT (test code = PLT) 212 K/mm3 130-400 N MEAN PLATELET VOLUME (test code = 11.0 fL 8.9-12.1 N MPV) NEUTROPHIL % (test code = NT%) 63.1 % 45-70 N LYMPHOCYTE % (test code = LY%) 26.6 % 20-40 N MONOCYTE % (test code = MO%) 6.6 % 3-10 N EOSINOPHIL % (test code = EO%) 2.3 % 1-5 N BASOPHIL % (test code = BA%) 0.8 % 0.0-1.1 N NEUTROPHIL # (test code = NT#) 4.89 K/mm3 2.00-7.50 N LYMPHOCYTE # (test code = LY#) 2.06 K/mm3 1.50-4.00 N MONOCYTE # (test code = MO#) 0.51 K/mm3 0.2-0.8 N EOSINOPHIL # (test code = EO#) 0.18 K/mm3 0.04-0.4 N BASOPHIL # (test code = BA#) 0.06 K/mm3 0.02-0.10 N MANUAL DIFF REQUIRED (test code = NO MANUAL DIFF MDIFF) NUCLEATED RED BLOOD CELL (test 0 % 0-0 N code = NRBC) SED [id number] 13:48:00 Test Item Value Reference Range Interpretation Comments SED RATE (test code = SEDW) 5 mm/hr 0-15 N C REACTIVE [id number] 13:13:00 Test Item Value Reference Range Interpretation Comments C REACTIVE PROTEIN (test code = < 0.2 mg/dL <0.9 CRP) SYNOVIAL FLD CELL [id number] 13:01:00 Test Item Value Reference Range Interpretation Comments SYNOVIAL FLD BLOODY LT. YELLOW A COLOR (test code = COLSY) SYNOVIAL FLD BLOODY CLEAR APPEARANCE (test code = APPSY) SYNOVIAL FLD 2.0 mL VOLUME (test code = VOLSY) SYNOVIAL FLD WBC 988.000 /MM3 0-200 H (test code = WBCSY) SYNOVIAL FLD RBC 48593.000 0-2 H NOTE: An a utomated (test code = /mm3 method is now b eing used RBCSY) to determinesyn ovial fluid WBC and R BC counts. The dif ferential willstill be pe rformed manually. SYNOVIAL FLD POLY 35 % 0-25 H (test code = POLYSY) SYNOVIAL FLD 56 % 0-78 N LYMPHOCYTE (test code = LYMPHSY) SYNOVIAL FLD 1 % 0-71 N MONOCYTE (test code = MONOSY) SYNOVIAL FLD 4 % 0-0 H PLASMA CELL (test code = PLASY) SYNOVIAL FLD 4 % 0-2 H HISTIOCYTE (test code = HISTSY) SPECIMEN COMMENT: ASPIRATED PER LEFT KNEE CELLCOUNT CBC W/AUTO [id number] 12:46:00 Test Item Value Reference Range Interpretation Comments WHITE BLOOD CELL (test code = WBC) 7.8 K/mm3 5.7-10.5 N RED BLOOD CELL (test code = RBC) 5.00 M/mm3 4.2-5.4 N HEMOGLOBIN (test code = HGB) 14.9 g/dL 12-16 N HEMATOCRIT (test code = HCT) 44.8 % 37-47 N MEAN CELL VOLUME (test code = MCV) 90 fL 80-98 N MEAN CELL HGB (test code = MCH) 29.8 pg 27-34 N MEAN CELL HGB CONCENTRATION (test 33.3 g/dL 30.8-34.1 N code = MCHC) RED CELL DISTRIBUTION WIDTH (test 12.8 % 11-16 N code = RDW) PLT (test code = PLT) 212 K/mm3 130-400 N MEAN PLATELET VOLUME (test code = 11.0 fL 8.9-12.1 N MPV) NEUTROPHIL % (test code = NT%) 63.1 % 45-70 N LYMPHOCYTE % (test code = LY%) 26.6 % 20-40 N MONOCYTE % (test code = MO%) 6.6 % 3-10 N EOSINOPHIL % (test code = EO%) 2.3 % 1-5 N BASOPHIL % (test code = BA%) 0.8 % 0.0-1.1 N NEUTROPHIL # (test code = NT#) 4.89 K/mm3 2.00-7.50 N LYMPHOCYTE # (test code = LY#) 2.06 K/mm3 1.50-4.00 N MONOCYTE # (test code = MO#) 0.51 K/mm3 0.2-0.8 N EOSINOPHIL # (test code = EO#) 0.18 K/mm3 0.04-0.4 N BASOPHIL # (test code = BA#) 0.06 K/mm3 0.02-0.10 N MANUAL DIFF REQUIRED (test code = NO MANUAL DIFF MDIFF) NUCLEATED RED BLOOD CELL (test 0 % 0-0 N code = NRBC) SED [id number] 12:46:00 Test Item Value Reference Range Interpretation Comments SED RATE (test code = SEDW) mm/hr 0-[id number] 12:30:00 Test Item Value Reference Range Interpretation Comments SYNOVIAL FLD COLOR LT. YELLOW A (test code = COLSY) SYNOVIAL FLD CLEAR APPEARANCE (test code = APPSY) SYNOVIAL FLD mL VOLUME (test code = VOLSY) SYNOVIAL FLD WBC 988.000 /MM3 0-200 H (test code = WBCSY) SYNOVIAL FLD RBC 94765.000 0-2 H NOTE: An a utomated (test code = /mm3 method is now b eing used RBCSY) to determinesyn ovial fluid WBC and R BC counts. The dif ferential willstill be pe rformed manually. SPECIMEN COMMENT: ASPIRATED PER LEFT KNEE CELLCOUNT- XR FLUORO [id number] 11:23:00 Patient Name: NEELA BARBA Unit No: [id number] EXAMS: CPT CODE: [id number] XR FLUORO NDL 51985 FLUOROSCOPICALLY GUIDED ASPIRATION OF THE LEFT KNEE [...] Jatin Smith Technologist: SURINDER OCASIO RT(R) Transcribed D/ (1123) t.SRIRAMR.JCL [facility] NAME:NEELA BARBA [address] [facility] PHYS: Jatin Kearney : 1970 AGE: 48 SEX: M [place], [place] [address] LOC: Y.RAD PHONE #: [phone] EXAM DATE: 11/24/2018 STATUS: REG CLI FAX #: [phone] RAD #: D/C DT PAGE 1 Signed Report Patient Name: NEELA BARBA Unit No: [id number] EXAMS: CPT CODE: [id number] XR FLUORO NDL 14862 <Continued> Orig Print D/T: S: 11/24/2018 (1126) [facility] NAME: NEELA BARBA [address] [facility] PHYS: CONI - Jatin Smith : 1970 AGE: 48 SEX: M [place], [place] [address] LOC: Y.RAD PHONE #: [phone] EXAM DATE: 11/24/2018 STATUS: REG CLI FAX#: [phone] RAD #: D/C DT PAGE 2Signed ReportCT LUMBAR WOCLINICAL INDICATION: M47.9 Spondylosis, unspecified low back painMODALITY: Digital Path CT (Iterative dose reduction techniques are utilized.)TECHNIQUE: [...] L3 with a eight - 9 mm postero central soft disc herniation indenting ventral thecal sac. [...] subarachnoid space.MRI CERVICAL WOCLINICAL INDICATION: M47.9 Spondylosis, mqopyspslhuI87.90 Cervical disc disorder, unsp, unspecified cervical region [...]
--- OUTSIDE RECORDS SUMMARY | 2020-02-09 12:32 | XMS REPORT | Summary of Care ---
:1970 Author Organization [facility] Address [address] [place] [address] Care Team Providers Name Role Phone Shen Diego MD Primary Care Provider Reason for Visit Reason Comments New Evaluation Encounter Details Date Type Department Care Team Description 12/28/2019 Office Visit [facility] Gray Chua MD [address] [place] [address] [id number] [place], [place] [id number] Rash and other Dermatology, Milagro Rebollar MD [address] [place] [phone] nonspecific skin [facility] [address] [place] [address] eruption (Primary Dx) [address] [facility], [facility] [place] [address] Allergies Active Allergy Reactions Severity [...] of skin cancer Social Hx: Lives in [place], [place] Allergies Allergies Allergen Reactions Rocephin [Ceftriaxone [...] well circumscribed evenly pigmented macule Nevus Papular (REFRACTORY WORKER): well circumscribed evenly pigmented papule Psoriasis Circumscribed [...] of this encounter Implants Implanted Type Area Collar Setter Overlock Device Shelf Model / Identifier Expiration Serial / Lot Date Bone Cement Injector 1x40 W/Gentamicin Biomet Ref#1100 [id number] - [id number] CEMENT Left: Biomet 03/12/2020 [id number] / Implanted: Qty: 1 on 03/10/2018 by Trevin Willis MD at [facility] Knee 7 [id number] / [id number] Component Femoral Cementless 65mml Left Cruciate Oliver uard Biomet Ref#[id number] Femur Left: Biomet 01/02/2028 [id number] / Implanted: Qty: 1 on 03/10/2018 by Trevin Willis MD at [facility] Knee 9 [id number] / [id number] Bearing Tibial 12 X 71/75 Mm #[id number] - [id number] KNEE Left: Bio met 12/21/2021 [id number] / Implanted: Qty: 1 on 03/10/2018 by Trevin Willis MD at [facility] Knee 6 [id number] / [id number] Stem Finned Primary 40mm Biomet #[id number] - [id number] Knee Stem Left: Biomet 02/20/2028 [id number] / Implanted: Qty: 1 on 03/10/2018 by Trevin Willis MD at [facility] Knee 2 [id number] / [id number] Patella 34mm Vanguard Knee System Biomet #[id number] - [id number] PATELLA Left: Biomet [id number] / Implanted: Qty: 1 on 03/10/2018 by Trevin Willis MD at [facility] Knee 0 / [id number] Adc Plate Tibial Porous 75 Mm - [id number] PLATE Left: Biomet 11/29/2022 [id number] / Implanted: Qty: 1 on 03/10/2018 by Trevin Willis MD at [facility] Knee 0 [id number] / [id number] Screw Bone 6.5x40mm Lp St Biomet #[id number] [[id number]] SCREW Left: Biomet 12/01/2027 [id number] / Implanted: Qty: 2 on 03/10/2018 by Trevin Willis MD at [facility] Knee 5 [id number] / [id number] Screw Bone 6.5x30mm Lp St Biomet #[id number] - [id number] SCREW Left: Biomet 12/18/2027 [id number] / Implanted: Qty: 2 on 03/10/2018 by Trevin Willis MD at [facility] Knee 8 [id number] / [id number] documented as of this encounter Results Not on filedocumented in this encounter Visit Diagnoses Diagnosis Rash and other nonspecific skin eruption - Primary documented in this encounter Insurance Payer Benefit Plan Subscriber ID Effective Dates Phone Address Type / Group BCBS OF [facility] [id number] 2015-Dari [phone] [address] PPO/POS [place] t 7 [id number] [place] [address] documented as of this encounter
--- OUTSIDE RECORDS SUMMARY | 2020-02-09 12:33 | XMS REPORT | Summary of Care ---
:1970 Author Organization [facility] Address [address] [place] [address] Care Team Providers Name Role Phone Shen Diego MD Primary Care Provider Reason for Visit Reason Comments Results Encounter Details Date Type Department Care Team Description 01/04/2020 Telephone [facility] Dermatology, Marilyn Villarreal Results [address] [place] [phone] Entrance A [phone] [place], [place] [address] [phone] Allergies Active Allergy Reactions Severity Noted Date Comments Ceftriaxone Sodium Hives Medium 09/30/2015 documented as of this encounter (statuses as of 01/05/2020) Medications Medication Sig Dispensed Refills Start Date [...] as of this encounter (statuses as of 01/05/2020) Active Problems Problem Noted Date Obesity (BMI 30-39.9) 03/10/2018 Total knee replacement status 03/10/2018 Pain 10/03/2015 documented as of this encounter (statuses as of 01/05/2020) Social History Tobacco Use Types Packs/Day Years Used Date Current Every Day Smoker Cigarettes 0.5 Smokeless Tobacco: Never Used Alcohol Use Drinks/Week oz/Week Comments No 0 Standard drinks or equivalent 0.0 Sex Assigned at Date Recorded Not on file documented as of this encounter Last Filed Vital Signs Not on filedocumented in this encounter Miscellaneous Notes Telephone Encounter - Kristina Cuellar LVN - 01/05/2020 12:56 PM CDT Marilyn Ackerman 01/05/2020 11:25 AM Talked to patient. He is still taking medication prescribed by another physician- hydroxyzine, xyzal, xolair, pepcid. He tried fexofenadine and zyrtec for 2 months prior to this regimen. Will call patient again next week to further discuss treatment options. Telephone Encounter - Jamaal Falk - 01/04/2020 3:55 PM CDTPatient is calling about biopsy results. documented in this encounter Plan of Treatment [...] of this encounter Implants Implanted Type Area Division Head Device Shelf Model / Identifier Expiration Serial / Lot Date Bone Cement Injector 1x40 W/Gentamicin Biomet Ref#1100 [id number] - [id number] CEMENT Left: Biomet 03/12/2020 [id number] / Implanted: Qty: 1 on 03/10/2018 by Trevin Willis MD at [facility] Knee 7 [id number] / [id number] Component Femoral Cementless 65mml Left Cruciate Oliver uard Biomet Ref#[id number] Femur Left: Biomet 01/02/2028 [id number] / Implanted: Qty: 1 on 03/10/2018 by Trevin Willis MD at [facility] Knee 9 [id number] / [id number] Bearing Tibial 12 X 71/75 Mm #561433 - [id number] KNEE Left: Bio met 12/21/2021 [id number] / Implanted: Qty: 1 on 03/10/2018 by Trevin Willis MD at [facility] Knee 6 [id number] / [id number] Stem Finned Primary 40mm Biomet #856061 - [id number] Knee Stem Left: Biomet 02/20/2028 [id number] / Implanted: Qty: 1 on 03/10/2018 by Trevin Willis MD at [facility] Knee 2 [id number] / [id number] Patella 34mm Vanguard Knee System Biomet #103260 - [id number] PATELLA Left: Biomet [id number] / Implanted: Qty: 1 on 03/10/2018 by Trevin Willis MD at [facility] Knee 0 / [id number] Adc Plate Tibial Porous 75 Mm - [id number] PLATE Left: Biomet 11/29/2022 [id number] / Implanted: Qty: 1 on 03/10/2018 by Trevin Willis MD at [facility] Knee 0 30869 / [id number] Screw Bone 6.5x40mm Lp St Biomet #[id number] [[id number]] SCREW Left: Biomet 12/01/2027 [id number] / Implanted: Qty: 2 on 03/10/2018 by Trevin Willis MD at [facility] Knee 5 [id number] / [id number] Screw Bone 6.5x30mm Lp St Biomet #[id number] - [id number] SCREW Left: Biomet 12/18/2027 [id number] / Implanted: Qty: 2 on 03/10/2018 by Trevin Willis MD at [facility] Knee 8 [id number] / [id number] documented as of this encounter Results Not on filedocumented in this encounter Insurance Payer Benefit Plan Subscriber ID Effective Dates Phone Address Type / Group [facility] [id number] 2015-Dari [phone] [address] PPO/POS [place] t [id number] [place] [address] documented as of this encounter
--- OUTSIDE RECORDS SUMMARY | 2020-02-09 12:33 | XMS REPORT | Summary of Care ---
:1970 Author Organization [facility] - Health Address [address] [place] [address] Care Team Providers Name Role Phone Shen Diego MD Primary Care Provider Encounter Details Date Type Department Care Team Description 01/15/2020 Orders Only [facility] Doctor Unassigned, No [address] [facility] Name [place] [id number] [place] [address] Allergies Active Allergy Reactions Severity Noted Date Comments Ceftriaxone Sodium Hives Medium 09/30/2015 documented as of this encounter (statuses as of 01/29/2020) Medications Medication Sig Dispensed Refills Start Date [...] as of this encounter (statuses as of 01/29/2020) Active Problems Problem Noted Date Obesity (BMI 30-39.9) 03/10/2018 Total knee replacement status 03/10/2018 Pain 10/03/2015 documented as of this encounter (statuses as of 01/29/2020) Social History Tobacco Use Types Packs/Day Years Used Date Current Every Day Smoker Cigarettes 0.5 Smokeless Tobacco: Never Used Alcohol Use Drinks/Week oz/Week Comments No 0 Standard drinks or equivalent 0.0 Sex Assigned at Date Recorded Not on file documented as of this encounter Last Filed Vital Signs Not on filedocumented in this encounter Plan of Treatment Health [...] of this encounter Implants Implanted Type Area Payroll Professional Device Shelf Model / Identifier Expiration Serial / Lot Date Bone Cement Injector 1x40 W/Gentamicin Biomet Ref#1100 [id number] - [id number] CEMENT Left: Biomet 03/12/2020 [id number] / Implanted: Qty: 1 on 03/10/2018 by Trevin Willis MD at [facility] Knee 7 [id number] / [id number] Component Femoral Cementless 65mml Left Cruciate Oliver uard Biomet Ref#[id number] Femur Left: Biomet 01/02/2028 [id number] / Implanted: Qty: 1 on 03/10/2018 by Trevin Willis MD at [facility] Knee 9 [id number] / [id number] Bearing Tibial 12 X 71/75 Mm #[id number] - [id number] KNEE Left: Bio met 12/21/2021 [id number] / Implanted: Qty: 1 on 03/10/2018 by Trevin Willis MD at [facility] Knee 6 [id number] / [id number] Stem Finned Primary 40mm Biomet #[id number] - [id number] Knee Stem Left: Biomet 02/20/2028 [id number] / Implanted: Qty: 1 on 03/10/2018 by Trevin Willis MD at [facility] Knee 2 [id number] / [id number] Patella 34mm Vanguard Knee System Biomet #[id number] - [id number] PATELLA Left: Biomet [id number] / Implanted: Qty: 1 on 03/10/2018 by Trevin Willis MD at [facility] Knee 0 / [id number] Adc Plate Tibial Porous 75 Mm - [id number] PLATE Left: Biomet 11/29/2022 [id number] / Implanted: Qty: 1 on 03/10/2018 by Trevin Willis MD at [facility] Knee 0 12920 / [id number] Screw Bone 6.5x40mm Lp St Biomet #[id number] [[id number]] SCREW Left: Biomet 12/01/2027 [id number] / Implanted: Qty: 2 on 03/10/2018 by Trevin Willis MD at [facility] Knee 5 [id number] / [id number] Screw Bone 6.5x30mm Lp St Biomet #[id number] - [id number] SCREW Left: Biomet 12/18/2027 [id number] / Implanted: Qty: 2 on 03/10/2018 by Trevin Willis MD at [facility] Knee 8 [id number] / [id number] documented as of this encounter Procedures Procedure Name Priority Date/Time Associated Diagnosis Comme nts AUTHORIZATION FOR RELEASE Routine 01/15/2020 12:01 AM OF PHI CDT documented in this encounter Results Not on filedocumented in this encounter Insurance Payer Benefit Plan Subscriber ID Effective Dates Phone Address Type / Group BCBS [place] [id number] 2015-Dari [phone] [address] PPO/[place] t 7 [id number] [place] [address] documented as of this encounter
--- OUTSIDE RECORDS SUMMARY | 2020-02-09 12:33 | XMS REPORT | Summary of Care ---
:1970 Author Organization [facility] Address [address] [place] [address] Care Team Providers Name Role Phone Shen Diego MD Primary Care Provider Reason for Visit Reason Comments New Evaluation Encounter Details Date Type Department Care Team Description 12/28/2019 Office Visit [facility] Gray Chua MD [address] [place] [address] [id number] [place], [place] [id number] Rash and other Dermatology, Milagro Rebollar MD [address] [place] [phone] nonspecific skin [facility] [address] [place] [address] eruption (Primary Dx) [address] [facility], [facility] [place] [address] Allergies Active Allergy Reactions Severity [...] of skin cancer Social Hx: Lives in [place], [place] Allergies Allergies Allergen Reactions Rocephin [Ceftriaxone [...] well circumscribed evenly pigmented macule Nevus Papular (ADAPTED PHYSICAL EDUCATION SPECIALIST): well circumscribed evenly pigmented papule Psoriasis [...] of this encounter Implants Implanted Type Area Internal Medicine Specialist Device Shelf Model / Identifier Expiration Serial / Lot Date Bone Cement Injector 1x40 W/Gentamicin Biomet Ref#1100 99435 - [id number] CEMENT Left: Biomet 03/12/2020 [id number] / Implanted: Qty: 1 on 03/10/2018 by Trevin Willis MD at [facility] Knee 7 [id number] / [id number] Component Femoral Cementless 65mml Left Cruciate Oliver uard Biomet Ref#[id number] Femur Left: Biomet 01/02/2028 [id number] / Implanted: Qty: 1 on 03/10/2018 by Trevin Willis MD at [facility] Knee 9 [id number] / [id number] Bearing Tibial 12 X 71/75 Mm #649724 - [id number] KNEE Left: Bio met 12/21/2021 805945 / Implanted: Qty: 1 on 03/10/2018 by Trevin Willis MD at [facility] Knee 6 [id number] / [id number] Stem Finned Primary 40mm Biomet #812427 - [id number] Knee Stem Left: Biomet 02/20/2028 569600 / Implanted: Qty: 1 on 03/10/2018 by Trevin Willis MD at [facility] Knee 2 [id number] / [id number] Patella 34mm Vanguard Knee System Biomet #582284 - S0 PATELLA Left: Biomet [id number] / Implanted: Qty: 1 on 03/10/2018 by Trevin Willis MD at [facility] Knee 0 / [id number] Adc Plate Tibial Porous 75 Mm - [id number] PLATE Left: Biomet 11/29/2022 [id number] / Implanted: Qty: 1 on 03/10/2018 by Trevin Willis MD at [facility] Knee 0 [id number] / [id number] Screw Bone 6.5x40mm Lp St Biomet #951569 [[id number]] SCREW Left: Biomet 12/01/2027 083871 / Implanted: Qty: 2 on 03/10/2018 by Trevin Willis MD at [facility] Knee 5 [id number] / [id number] Screw Bone 6.5x30mm Lp St Biomet #420140 - [id number] SCREW Left: Biomet 12/18/2027 672269 / Implanted: Qty: 2 on 03/10/2018 by Trevin Willis MD at [facility] Knee 8 [id number] / [id number] documented as of this encounter Results Not on filedocumented in this encounter Visit Diagnoses Diagnosis Rash and other nonspecific skin eruption - Primary documented in this encounter Insurance Payer Benefit Plan Subscriber ID Effective Dates Phone Address Type / Group BCBS OF [facility] [id number] 2015-Dari [phone] [address] PPO/POS [place] t [id number] [place] [address] documented as of this encounter
--- OUTSIDE RECORDS SUMMARY | 2020-02-09 12:33 | XMS REPORT | Summary of Care ---
:1970 Author Organization [facility] Address [address] [place] [address] Care Team Providers Name Role Phone Shen Diego MD Primary Care Provider Reason for Visit Reason Comments Assessment Encounter Details Date Type Department Care Team Description 01/15/2020 Telephone [facility] Dermatology, Marilyn Villarreal Assessment [address] [place] [phone] Entrance A [phone] [place], [place] [address] [phone] Allergies Active Allergy Reactions Severity Noted Date Comments Ceftriaxone Sodium Hives Medium 09/30/2015 documented as of this encounter (statuses as of 01/19/2020) Medications Medication Sig Dispensed Refills Start Date [...] as of this encounter (statuses as of 01/19/2020) Active Problems Problem Noted Date Obesity (BMI 30-39.9) 03/10/2018 Total knee replacement status 03/10/2018 Pain 10/03/2015 documented as of this encounter (statuses as of 01/19/2020) Social History Tobacco Use Types Packs/Day Years Used Date Current Every Day Smoker Cigarettes 0.5 Smokeless Tobacco: Never Used Alcohol Use Drinks/Week oz/Week Comments No 0 Standard drinks or equivalent 0.0 Sex Assigned at Date Recorded Not on file documented as of this encounter Last Filed Vital Signs Not on filedocumented in this encounter Miscellaneous Notes Telephone Encounter - Kristina Cuellar LVN - 01/19/2020 11:[address] Casanova's MA and she will fax medical release consent and I will fax clinic note and path report to [phone] signed by Kristina Cuellar LVN at 01/19/2020 11:32 AM CDTTelephone Encounter - Caron Grey - 01/15/2020 2:26 PM [facility] [place], Dr. Casanova office is requesting a callback from the nurseregarding a faxback that they sent for release of medical records for biopsy results and visit notes. Callback number - ([phone]) documented in this encounter Plan of Treatment [...] of this encounter Implants Implanted Type Area Remediation Technician Device Shelf Model / Identifier Expiration Serial / Lot Date Bone Cement Injector 1x40 W/Gentamicin Biomet Ref#1100 46559 - [id number] CEMENT Left: Biomet 03/12/2020 [id number] / Implanted: Qty: 1 on 03/10/2018 by Trevin Willis MD at [facility] Knee 7 [id number] / [id number] Component Femoral Cementless 65mml Left Cruciate Oliver uard Biomet Ref#[id number] Femur Left: Biomet 01/02/2028 [id number] / Implanted: Qty: 1 on 03/10/2018 by Trevin Willis MD at [facility] Knee 9 [id number] / [id number] Bearing Tibial 12 X 71/75 Mm #622002 - [id number] KNEE Left: Bio met 12/21/2021 [id number] / Implanted: Qty: 1 on 03/10/2018 by Trevin Willis MD at [facility] Knee 6 [id number] / [id number] Stem Finned Primary 40mm Biomet #789099 - [id number] Knee Stem Left: Biomet 02/20/2028 093600 / Implanted: Qty: 1 on 03/10/2018 by Trevin Willis MD at [facility] Knee 2 [id number] / [id number] Patella 34mm Vanguard Knee System Biomet #522759 - [id number] PATELLA Left: Biomet [id number] / Implanted: Qty: 1 on 03/10/2018 by Trevin Willis MD at [facility] Knee 0 / [id number] Adc Plate Tibial Porous 75 Mm - [id number] PLATE Left: Biomet 11/29/2022 835348 / Implanted: Qty: 1 on 03/10/2018 by Trevin Willis MD at [facility] Knee 0 74581 / [id number] Screw Bone 6.5x40mm Lp St Biomet #947008 [[id number]] SCREW Left: Biomet 12/01/2027 [id number] / Implanted: Qty: 2 on 03/10/2018 by Trevin Willis MD at [facility] Knee 5 [id number] / [id number] Screw Bone 6.5x30mm Lp St Biomet #179641 - [id number] SCREW Left: Biomet 12/18/2027 [id number] / Implanted: Qty: 2 on 03/10/2018 by Trevin Willis MD at [facility] Knee 8 11555 / [id number] documented as of this encounter Results Not on filedocumented in this encounter Insurance Payer Benefit Plan Subscriber ID Effective Dates Phone Address Type / Group BCBS OF [employer] [place] [id number] 2015-Dari [phone] [address] PPO/POS [place] t 7 [id number] [place] [address] documented as of this encounter
[2020-02-09 13:02] LABS: Basophils % 0.4 % (0-1.3); MPV 8.6 fL (7.6-11.3); RBC Red Blood Cell Count 4.95 M/uL (4.33-5.43)
[2020-02-09 13:15] LABS: Protime INR 0.97
--- NOTE | 2020-02-09 13:27 | RAD REPORT ---
EXAM DESCRIPTION: RAD - Chest Single View - 02/09/2020 1:21 pm CLINICAL HISTORY: CHEST PAIN Chest pain. COMPARISON: CHEST SINGLE VIEW dated 10/02/2014; CHEST SINGLE VIEW dated 11/13/2011; CHEST PA AND LAT 2 VIEW dated 05/19/2011; CHEST PA AND LAT 2 VIEW dated 10/04/2009 FINDINGS: Portable technique limits examination quality. The lungs are grossly clear. The heart is normal in size. No displaced fractures. IMPRESSION: No acute intrathoracic process suspected.
[2020-02-09 13:34] LABS: ALT/SGPT 20 U/L (12-78); AST/SGOT 12 U/L (15-37); Alkaline Phosphatase 100 U/L (45-117); BUN Blood Urea Nitrogen 15 mg/dL (7-18); Bicarbonate 27 mmol/L (21-32); Bilirubin Direct 0.1 mg/dL (0-0.2); Bilirubin Total 0.5 mg/dL (0.2-1.0); Glucose Level 102 mg/dL (74-106); Magnesium 2.2 mg/dL (1.8-2.4); NT PRO-BNP 6 pg/mL (<125); Potassium 3.8 mmol/L (3.5-5.1); Protein, Total 7.7 g/dL (6.4-8.2); Sodium Level 141 mmol/L (136-145); Troponin (Emerg Dept Use Only) < 0.02 ng/mL (0.0-0.045)
--- NOTE | 2020-02-09 14:04 | RAD REPORT ---
EXAM DESCRIPTION: CT - Chest For Pe Angio - 02/09/2020 1:54 pm CLINICAL HISTORY: Chest pain. CHEST PAIN COMPARISON: No comparisons TECHNIQUE: CT angiogram of the pulmonary arteries was performed with MIP. All CT scans are performed using dose optimization technique as appropriate and may include automated exposure control or mA/KV adjustment according to patient size. FINDINGS: No evidence of pulmonary thromboembolism. No acute aortic finding demonstrated. Mild interstitial pulmonary edema. No significant pericardial or pleural fluid. No concerning bony finding. IMPRESSION: No evidence of pulmonary thromboembolism. Mild interstitial pulmonary edema.
[2020-02-09] MEDS ORDERED: MAGNE/ALUM HYDROXD 30 ML UCUP ONE (14:45)
[2020-02-09] MEDS ORDERED: LIDOCAINE VISCOUS 2% SOLN 15 ML UDC ONE (14:45)
--- NOTE | 2020-02-09 14:58 | EDPHYS ---
Physician Documentation [facility] Name: Noah De La Fuente Age: 49 yrs Sex: Male : 1970 Arrival Date: 02/09/2020 Time: 12:30 Bed 4 Private MD: ED Physician Paramjit Sidhu HPI: 02/08 12:30 This 49 yrs old Male presents to ER via Wheelchair with complaints of Chest jmm Pain. 12:30 The patient or guardian reports chest pain that is located primarily in the substernal jmm area. Onset: gradually, today. The pain radiates to Associated signs and symptoms: Pertinent positives: abdominal pain. The chest pain is described as aching. Modifying factors: The symptoms are alleviated by nothing. the symptoms are aggravated by nothing. This is a 49 year old male with a history of svt, atrial fib that presents to the ED with complaints of chest pain beginning approx 30 minutes prior to arrival. Patient is 1 day s/p endoscopy and colonoscopy. patient states waking up this morning with the need to belch. Patient states he has not been able to belch and then developed chest pain 30 minutes prior to arrival. Denies hx of htn, CAD. 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 - Social history:: Smoking status: Patient reports the use of cigarette tobacco products, smokes one-half pack cigarettes per day. ROS: 12:30 Constitutional: Negative for fever, chills, and weight loss. jmm 12:30 Cardiovascular: Positive for chest pain. 12:30 Abdomen/GI: Positive for flatulence. 12:30 All other systems are negative. Exam: 12:30 Constitutional: This is a well developed, well nourished patient who is awake, alert, jmm and in no acute distress. Head/Face: atraumatic. Eyes: EOMI, no conjunctival erythema appreciated ENT: Moist Mucus Membranes Neck: Trachea midline, Supple Chest/axilla: Normal chest wall appearance and motion. Cardiovascular: Regular rate and rhythm. No edema appreciated Respiratory: Normal respirations, no respiratory distress appreciated Abdomen/GI: Non distended, soft Back: Normal ROM Skin: General appearance color normal MS/ Extremity: Moves all extremities, no obvious deformities appreciated, no edema noted to the lower extremities Neuro: Awake and alert, normal gait Psych: Behavior is normal, Mood is normal, Patient is cooperative and pleasant 12:43 ECG was reviewed by the Attending Physician. [facility] Vital Signs: 12:33 BP 151 / 93 LA; Pulse 73; Resp 15 S; Temp 97.8(TE); Pulse Ox 99% on R/A; Weight 115.67 ca1 kg (R); Height 5 ft. 8 in. (172.72 cm) (R); Pain 6/10; 12:40 BP 123 / 91 LA; jl7 12:42 BP 131 / 93 RA; jl7 13:39 BP 122 / 89; Pulse 70; Resp 17; Pulse Ox 99% on R/A; tw2 14:37 BP 113 / 82; Pulse 71; Resp 17; Pulse Ox 100% on R/A; tw2 15:30 BP 116 / 84; Pulse 64; Resp 17; Pulse Ox 100% on R/A; tw2 16:11 BP 113 / 80; Pulse 62; Resp 17; Pulse Ox 100% on R/A; tw2 12:33 Body Mass Index 38.77 (115.67 kg, 172.72 cm) ca1 MDM: 12:41 Patient medically screened. [facility] 14:56 Data reviewed: vital signs, nurses notes. ED course: I discussed the patient with Dr. wale Soto whom accepted the patient for admission. . 02/08 12:38 Order name: Basic Metabolic Panel [facility] 02/08 12:38 Order name: CBC with Diff; Complete Time: 13:09 [facility] 02/08 12:38 Order name: LFT's; Complete Time: 13:42 [facility] 02/08 12:38 Order name: Magnesium; Complete Time: 13:42 [facility] 02/08 12:38 Order name: NT PRO-BNP; Complete Time: 13:42 [facility] 02/08 12:38 Order name: PT-INR; Complete Time: 13:18 [facility] 02/08 12:38 Order name: Troponin (emerg Dept Use Only); Complete Time: 13:42 [facility] 02/08 12:38 Order name: XRAY Chest (1 view); Complete Time: 13:29 [facility] 02/08 12:38 Order name: Basic Metabolic Panel; Complete Time: 13:42 [facility] 02/08 13:02 Order name: D-Dimer; Complete Time: 13:18 [facility] 02/08 13:44 Order name: CT Chest For PE Angio; Complete Time: 14:11 [facility] 02/08 12:38 Order name: EKG; Complete Time: 12:38 [facility] 02/08 12:38 Order name: Cardiac monitoring; Complete Time: 12:52 [facility] 02/08 12:38 Order name: EKG - Nurse/Tech; Complete Time: 12:52 [facility] 02/08 12:38 Order name: IV Saline Lock; Complete Time: 12:52 [facility] 02/08 12:38 Order name: Labs collected and sent; Complete Time: 12:52 [facility] 02/08 12:38 Order name: O2 Per Protocol; Complete Time: 12:52 [facility] 02/08 12:38 Order name: O2 Sat Monitoring; Complete Time: 12:52 jmm EC:43 Rate is 75 beats/min. Rhythm is regular. QRS Adrian is Normal. CO interval is normal. QRS jmm interval is normal. QT interval is normal. No Q waves. T waves are Normal. No ST changes noted. Reviewed by me. Administered Medications: 14:37 Drug: GI Cocktail without - (Maalox Suspension 30 ml, Lidocaine Liquid 2 % 15 tw2 ml) Route: PO; 15:06 Follow up: Response: No adverse reaction; No adverse reaction, pt states "its better, tw2 it did help some, but that uncomfortable feeling is still there" 15:05 Drug: Aspirin Chewable Tablet 324 mg Route: PO; tw2 15:06 Follow up: Response: No adverse reaction tw2 Disposition: 02/09 08:04 Co-signature as Attending Physician, Paramjit Sidhu MD I agree with the assessment and jerome plan of care. Disposition: 02/09/20 14:57 Hospitalization ordered by Real Soto for Observation. Preliminary diagnosis is Chest pain, unspecified. - Bed requested for Telemetry/MedSurg (observation). - Status is Observation. tw2 - Condition is Stable. - Problem is new. - Symptoms are unchanged. Signatures: Dispatcher [employer] EDMS Nayeli Fatima bd Paramjit Sidhu MD MD cha Mickail, Joel, PA PA [facility] Ruby Oscar, RN RN tw2 Reny Almanzar, RN RN jl7 Pham Martinez, RN RN ca1 Corrections: (The following items were deleted from the chart) 02/08 13:02 12:43 D-DIMER+COAG.LAB.BRZ ordered. EDID EDMS 15:07 14:57 Hospitalization Ordered by [facility] for Observation. Preliminary bd diagnosis is Chest pain, unspecified. Bed requested for Telemetry/MedSurg (observation). Status is Observation. Condition is Stable. Problem is new. Symptoms are unchanged. [facility] 16:03 15:07 02/09/2020 14:57 Hospitalization Ordered by [facility] for Observation. bd Preliminary diagnosis is Chest pain, unspecified. Bed requested for Telemetry/MedSurg (observation). Status is Observation. Condition is Stable. Problem is new. Symptoms are unchanged. bd 16:11 16:03 02/09/2020 14:57 Hospitalization Ordered by [facility] for Observation. tw2 Preliminary diagnosis is Chest pain, unspecified. Bed requested for Telemetry/MedSurg (observation). Status is Observation. Condition is Stable. Problem is new. Symptoms are unchanged. bd
--- NOTE | 2020-02-09 14:58 | ER ---
[facility] Name: Noah De La Fuente Age: 49 yrs Sex: Male : 1970 Arrival Date: 02/09/2020 Time: 12:30 Bed 4 Private MD: Diagnosis: Chest pain, unspecified Presentation: 02/08 12:33 Chief complaint: Patient states: Upper and lower GI procedures done yesterday. Chest ca1 pain started <1hr [address], described as pressure, constant, radiating the arm and back between the shoulder blades, pain scale 8/10 at worst. Reports SOB, nausea, lightheadedness with pain. states, "I felt like I was going to pass out in the lobby". Denies cough, denies injury to chest. Denies cardiac problems. Hx of A-fib with cardiac ablation done. Coronavirus screen: Client denies travel out of the [place] in the last 14 days. At this time, the client does not indicate any symptoms associated with coronavirus-19. Ebola Screen: Patient negative for fever greater than or equal to 101.5 degrees Fahrenheit, and additional compatible Ebola Virus Disease symptoms Patient denies exposure to infectious person. Patient denies travel to an Ebola-affected area in the 21 days before illness onset. No symptoms or risks identified at this time. Initial Sepsis Screen: Does the patient meet any 2 criteria? No. Patient's initial sepsis screen is negative. Does the patient have a suspected source of infection? No. Patient's initial sepsis screen is negative. Risk Assessment: Do you want to hurt yourself or someone else? Patient reports no desire to harm self or others. Onset of symptoms was February 09, 2020 at 11:30. 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 - Social history:: Smoking status: Patient reports the use of cigarette tobacco products, smokes one-half pack cigarettes per day. Screenin:40 Abuse screen: Denies threats or abuse. Denies injuries from another. Nutritional jl7 screening: No deficits noted. Tuberculosis screening: No symptoms or risk factors identified. Fall Risk IV access (20 points). Total Linder Fall Scale indicates No Risk (0-24 pts). Assessment: 12:35 General: Appears in no apparent distress. uncomfortable, Behavior is calm, cooperative, jl7 appropriate for age. Pain: Complains of pain in mid-sternal area Pain radiates to thoracic area and left side of neck Pain currently is 6 out of 10 on a pain scale. at worst was 10 out of 10 on a pain scale. Quality of pain is described as sharp, stabbing, squeezing, Pain began 4 hours ago. Is continuous. Neuro: Level of Consciousness is awake, alert, obeys commands, Oriented to person, place, time, situation. Cardiovascular: Reports chest pain, Heart tones present Patient's skin is warm and dry. Rhythm is regular. Respiratory: Airway is patent Respiratory effort is even, unlabored, Respiratory pattern is regular, symmetrical, Breath sounds are clear bilaterally. GI: Abdomen is round non-distended, Reports gaseousness, indigestion. Derm: Skin is pink, warm \\T\\ dry. 14:32 Reassessment: Patient and/or family updated on plan of care and expected duration. Pain tw2 level reassessed. Patient is alert, oriented x 3, equal unlabored respirations, skin warm/dry/pink. pt states "the pain is better but i have an uncomfortableness in my chest like i need to belch but i cant", provider notified, medicated as ordered. 15:30 Reassessment: Patient appears in no apparent distress at this time. Patient and/or tw2 family updated on plan of care and expected duration. Pain level reassessed. Patient is alert, oriented x 3, equal unlabored respirations, skin warm/dry/pink. 16:11 Reassessment: Patient appears in no apparent distress at this time. Patient and/or tw2 family updated on plan of care and expected duration. Pain level reassessed. Patient is alert, oriented x 3, equal unlabored respirations, skin warm/dry/pink. Vital Signs: 12:33 BP 151 / 93 LA; Pulse 73; Resp 15 S; Temp 97.8(TE); Pulse Ox 99% on R/A; Weight 115.67 ca1 kg (R); Height 5 ft. 8 in. (172.72 cm) (R); Pain 6/10; 12:40 BP 123 / 91 LA; jl7 12:42 BP 131 / 93 RA; jl7 13:39 BP 122 / 89; Pulse 70; Resp 17; Pulse Ox 99% on R/A; tw2 14:37 BP 113 / 82; Pulse 71; Resp 17; Pulse Ox 100% on R/A; tw2 15:30 BP 116 / 84; Pulse 64; Resp 17; Pulse Ox 100% on R/A; tw2 16:11 BP 113 / 80; Pulse 62; Resp 17; Pulse Ox 100% on R/A; tw2 12:33 Body Mass Index 38.77 (115.67 kg, 172.72 cm) ca1 ED Course: 12:30 Patient arrived in ED. ag5 12:31 Reny Almanzar, CARROLL is Primary Nurse. jl7 12:35 Patient has correct armband on for positive identification. Placed in gown. Bed in low jl7 position. Call light in reach. Side rails up X 1. property assessment monitor on. Pulse ox on. NIBP on. Warm blanket given. 12:35 Initial lab(s) drawn, by me, sent to lab. EKG done, by ED staff, reviewed by Adrián JC. Inserted saline lock: 20 gauge in left antecubital area, using aseptic technique. Blood collected. Patient maintains SpO2 saturation greater than 95% on room air. 12:37 Adrián Watts PA is PHCP. jmm 12:37 Paramjit Sidhu MD is Attending Physician. jmm 12:47 Triage completed. ca1 12:49 Arm band placed on right wrist. EKG completed in triage. Results shown to MD. ca1 13:21 XRAY Chest (1 view) In Process Unspecified. EDMS 13:53 CT completed. Patient tolerated procedure well. Patient moved to CT via stretcher. sw Patient moved back from CT. 13:54 CT Chest For PE Angio In Process Unspecified. EDMS 14:57 Real Soto DO is Hospitalizing Provider. jmm 15:55 No provider procedures requiring assistance completed. Patient admitted, IV remains in jl7 place. intact, No redness/swelling at site. Administered Medications: 14:37 Drug: GI Cocktail without - (Maalox Suspension 30 ml, Lidocaine Liquid 2 % 15 tw2 ml) Route: PO; 15:06 Follow up: Response: No adverse reaction; No adverse reaction, pt states "its better, tw2 it did help some, but that uncomfortable feeling is still there" 15:05 Drug: Aspirin Chewable Tablet 324 mg Route: PO; tw2 15:06 Follow up: Response: No adverse reaction tw2 Outcome: 14:57 Decision to Hospitalize by Provider. [facility] 15:55 Admitted to Tele accompanied by tech, via wheelchair, room 207, with chart, Report jl7 called to CARROLL Jenkins 15:55 Condition: stable 15:55 Discharge instructions given to patient, Instructed on the need for admit, Demonstrated understanding of instructions. 16:11 Patient left the ED. tw2 Signatures: Dispatcher [employer] EDMS Adrián Watts PA PA jmm Warren, Shannon sw Wise, Tara, RN RN tw2 Reny Almanzar RN RN jl7 Pham Martinez RN RN ca1 Bong Richards [facility]
--- NOTE | 2020-02-09 15:09 | P.HP ---
Certification for Inpatient Patient admitted to: Observation With expected LOS: <2 Midnights Patient will require the following post-hospital care: None Practitioner: I am a practitioner with admitting privileges, knowledge of patient current condition, hospital course, and medical plan of care. Services: Services provided to patient in accordance with Admission requirements found in Title 42 Section 412.3 of the Code of Federal Regulations Patient History Date of Service: 02/09/20 Primary Care Provider: Dr. Oliver; GI-Dr. Reich; Moving Van Driver-Xavi Reason for admission: chest pain History of Present Illness: 49-year-old male with history of GERD, AFib status post ablation therapy in the past, rheumatoid arthritis and chronic allergies with etiology unknown. Patient presented with chest pain. This started chair occurred last night. It primarily occurs to the center of the chest. He radiates to the back. He rates the pain about a 5/10. It is associated with some nausea and vomiting. Patient mentions that he had any EGD colonoscopy yesterday. Biopsies were obtained. This was part of his workup for his chronic allergies evaluation. Chronic allergies etiology are yet to be determined. He continued to have chest pain today. He denied any significant shortness of breath. He denies any melena, coughing or spitting up of blood. Patient reports distant history of atrial fibrillation requiring cardiac ablation. It is been a while since he is seen Cardiology. In the ER patient was evaluated. Vital signs stable. White count 7.3, hemoglobin 14.5. Sodium 141, potassium 3.8. BUN of 15, creatinine 1.03 with a GFR 76. Glucose 102. Troponin unremarkable. D-dimer elevated at 740. Chest x- ray unremarkable. CT angiogram of the chest showed no pulmonary embolism. Mild pulmonary edema noted. Patient was admitted for further evaluation. EKG shows no significant abnormal changes. Patient stable in the ER. Allergies ceftriaxone sodium [From Rocephin] Allergy (Intermediate, Verified 08/14/12 22:56) Hives/Rash Home medications list reviewed: Yes Home Medications: Adalimumab [Humira 40 MG/0.8 ML*] 0.8 ml SQ Q7D 10/02/14 Duloxetine HCl 60 mg PO DAILY 10/02/14 Fentanyl Patch [Duragesic Patch*] 25 mcg TOP Q72H 10/02/14 Gabapentin 300 mg PO TID 10/02/14 - Past Medical/Surgical History Diabetic: No -: Rheumatoid arthritis -: History SVT/AFib status post ablation -: Chronic back pain -: Tobacco abuse -: Alcohol use -: GERD -: Chronic allergies etiology unknown -: Spinal fusions -: Cardiac Radioablation X 3 Psychosocial/ Personal History: Patient is - Family History Father -: Heart disease, Hypertension - Social History Smoking Status: Heavy Tobacco smoker (>10 cigarettes/day) Counseled patient to stop smoking for: less than 10 minutes Smoking therapy provided: Yes Patient receptive to therapy: Yes Alcohol use: Yes CD- Drugs: No Caffeine use: Yes Place of Residence: Home Review of Systems General: As per HPI Eyes: Unremarkable ENT: Unremarkable Respiratory: Unremarkable Cardiovascular: Chest Pain, As per HPI Gastrointestinal: Nausea, Vomiting, As per HPI Genitourinary: Unremarkable Musculoskeletal: Unremarkable Integumentary: Unremarkable Neurological: Unremarkable Lymphatics: Unremarkable Physical Examination - Physical Exam General: Alert, In no apparent distress, Oriented x3, Cooperative HEENT: Atraumatic, Normocephalic, Mucous membr. moist/pink Neck: Supple, No Thyromegaly Respiratory: Clear to auscultation bilaterally, Normal air movement Cardiovascular: Normal pulses, Regular rate/rhythm Gastrointestinal: Normal bowel sounds, Soft and benign, Non-distended, No tenderness, No masses, No rebound, No guarding Musculoskeletal: No erythema, No tenderness, No warmth Integumentary: No tenderness/swelling, No erythema, No warmth, No cyanosis Neurological: Normal speech, Normal strength at 5/5 x4 extr, Normal tone, Normal affect - Studies Laboratory Data (last 24 hrs) 02/09/20 12:39: PT 11.4, INR 0.97 02/09/20 12:39: WBC 7.3, Hgb 14.5, Hct 44.0, Plt Count 236 02/09/20 12:39: Sodium 141, Potassium 3.8, BUN 15, Creatinine 1.03, Glucose 102, Magnesium 2.2, Total Bilirubin 0.5, AST 12 L, ALT 20, Alkaline Phosphatase 100 Assessment and Plan - Plan Impression: Chest pain GERD with recent EGD/colonoscopy History of SVT/atrial fibrillation with prior cardiac ablations Chronic allergies, etiology unknown Rheumatoid arthritis Tobacco abuse Alcohol use Plan: Chest pain: Patient will be admitted for further evaluation and treatment. Will monitor cardiac enzymes and telemetry. CT chest shows no pulmonary embolism. No evidence of pneumonia noted. Will obtain echocardiogram. Will consult cardiology for further recommendation. Will keep the patient NPO after midnight in the event patient requires further cardiac evaluation. Will start aspirin, DVT prophylaxis-Lovenox. Will check fasting lipid panel. Will continue to monitor and assess. Await further recommendations from cardiology. Anticipate improvement over the next 24 hr with possible discharge tomorrow if workup unremarkable. GERD with recent EGD/colonoscopy: Will continue with his home medication of Pepcid and Protonix. Patient had EGD colonoscopy yesterday. Biopsies performed. CBC stable. History of SVT/atrial fibrillation with prior cardiac ablations: Patient in sinus rhythm. Will monitor closely on telemetry. Chronic allergies, etiology unknown: Patient is seen by an gun stock maker. Patient was sent to GI in part of his allergy workup. So far etiology is unknown. Patient takes Pepcid, Xyzal, and Zyrtec. Will continue with home medications. Rheumatoid arthritis: Continue with home medication Tobacco abuse: Tobacco cessation addressed in detail. Patient may require nicotine patch. Alcohol use: Alcohol cessation education provided. Discharge Plan: Home Plan to discharge in: 24 Hours - Advance Directives Does patient have a Living Will: No Does patient have a Durable POA for Healthcare: No - Code Status/Comfort Care Code Status Assessed: Yes (Patient is full code) Time Spent Managing Pts Care (In Minutes): 55
[2020-02-09] MEDS ORDERED: ASPIRIN 81 MG CHEWABLE TABLET ONE (15:14)
[2020-02-09] MEDS ORDERED: ONDANSETRON 4 MG/2 ML VIAL IV PRN (16:03)
[2020-02-09] MEDS ORDERED: ACETAMINOPHEN 500 MG TAB PO PRN (16:03)
[2020-02-09 16:36] VITALS: BMI 38.7
[2020-02-09] MEDS ORDERED: POTASSIUM CL SA 10 MEQ TAB PO ONE (17:00)
[2020-02-09] MEDS: ENOXAPARIN 40 MG/0.4 ML SQ SCH (18:04)
[2020-02-09 18:31] LABS: CKMB Creatine Kinase MB < 1.0 ng/mL (0.3-3.6); Creatine Phosphokinase 65 U/L (39-308); Troponin I < 0.02 ng/mL (0.0-0.045)
[2020-02-09] MEDS: FAMOTIDINE 20 MG TAB PO SCH (20:45)
[2020-02-09] MEDS: CETIRIZINE HCL 5 MG TABLET PO SCH (20:45)
[2020-02-10 04:58] LABS: Magnesium 2.2 mg/dL (1.8-2.4); Potassium 4.5 mmol/L (3.5-5.1); Thyroid Stimulating Hormone 0.477 uIU/mL (0.360-3.740)
[2020-02-10] MEDS ORDERED: PANTOPRAZOLE 40MG TABLET PO SCH (07:30)
--- NOTE | 2020-02-10 07:37 | P.DS ---
Admission Date: 02/09/20 Discharge Date: 02/10/20 Primary Care Provider: Dr. Oliver; GI-Dr. Reich; Biomechanical Engineer-Lucile Disposition: ROUTINE DISCHARGE Discharge Condition: GOOD Reason for Admission: chest pain Consultations: Cardiology-Dr. Buckley Procedures: CXR: FINDINGS: Portable technique limits examination quality. The lungs are grossly clear. The heart is normal in size. No displaced fractures. IMPRESSION: No acute intrathoracic process suspected. CT Chest: FINDINGS: No evidence of pulmonary thromboembolism. No acute aortic finding demonstrated. Mild interstitial pulmonary edema. No significant pericardial or pleural fluid. No concerning bony finding. IMPRESSION: No evidence of pulmonary thromboembolism. Mild interstitial pulmonary edema. Medical problem list: Chest pain, Atypical GERD with recent EGD/colonoscopy History of SVT/atrial fibrillation with prior cardiac ablations Chronic allergies, etiology unknown Rheumatoid arthritis Tobacco abuse Alcohol use Brief History of Present Illness: 49-year-old male with history of GERD, AFib status post ablation therapy in the past, rheumatoid arthritis and chronic allergies with etiology unknown. Patient presented with chest pain. This started chair occurred last night. It primarily occurs to the center of the chest. He radiates to the back. He rates the pain about a 5/10. It is associated with some nausea and vomiting. Patient mentions that he had any EGD colonoscopy yesterday. Biopsies were obtained. This was part of his workup for his chronic allergies evaluation. Chronic allergies etiology are yet to be determined. He continued to have chest pain today. He denied any significant shortness of breath. He denies any melena, coughing or spitting up of blood. Patient reports distant history of atrial fibrillation requiring cardiac ablation. It is been a while since he is seen Cardiology. In the ER patient was evaluated. Vital signs stable. White count 7.3, hemoglobin 14.5. Sodium 141, potassium 3.8. BUN of 15, creatinine 1.03 with a GFR 76. Glucose 102. Troponin unremarkable. D-dimer elevated at 740. Chest x- ray unremarkable. CT angiogram of the chest showed no pulmonary embolism. Mild pulmonary edema noted. Patient was admitted for further evaluation. EKG shows no significant abnormal changes. Patient stable in the ER. Hospital Course: Patient presented with atypical chest pain. Patient was monitored and evaluated closely. Cardiac enzymes unremarkable. CT chest showed no evidence of pneumonia or pulmonary embolism. LDL within normal range. Cardiology was consulted to further evaluate. No significant EKG changes noted. Cardiology recommends further cardiac evaluation as an outpatient. Patient without chest pain at this time. Chest pain likely noncardiac at this time. At discharge patient may continue with aspirin 81 mg daily. Recommend follow up with cardiology within 1 week. Outpatient cardiac stress test will be ordered at that time. Patient with GERD. Patient had recent EGD/colonoscopy. Biopsies were obtained. Recommend follow up with GI to further go over biopsy report and recommendations. At discharge patient will continue with his current medicati on-Prilosec 40 mg daily and Pepcid 20 mg 1 pill twice daily. Patient with history of chronic allergies. Patient is currently being worked up extensively by garage door service technician. Etiology still on known. At discharge he will continue with his current medication regimen-Zyrtec 10 mg daily,Xyzal 5 mg at bedtime, and Atarax 25 mg 3 times a day as needed. Patient also has epi pen for emergency use only. Patient with history of SVT/atrial fibrillation with prior cardiac ablations. Patient in normal sinus rhythm. Patient may follow up with cardiology to further monitor. Patient with history of rheumatoid arthritis. This remained stable. At discharge he will continue with his current regimen. Follow up with Rheumatology as directed. Patient with tobacco and alcohol use. Cessation education provided. Patient with obesity, BMI 38.8. Lifestyle modification education provided. Vital Signs/Physical Exam: Temp Pulse Resp BP Pulse Ox 97.5 F 90 18 112/70 97 02/10/20 04:00 02/10/20 04:00 02/10/20 04:00 02/10/20 04:00 02/10/20 04:00 General: Alert, In no apparent distress, Oriented x3, Cooperative HEENT: Atraumatic Neck: Supple Respiratory: Clear to auscultation bilaterally, Normal air movement Cardiovascular: Normal pulses, Regular rate/rhythm Gastrointestinal: Normal bowel sounds, Soft and benign, Non-distended, No tenderness, No masses, No rebound, No guarding Integumentary: No tenderness/swelling, No erythema, No warmth, No cyanosis Neurological: Normal speech, Normal strength at 5/5 x4 extr, Normal tone, Normal affect Laboratory Data at Discharge: WBC 7.3 K/uL (4.3-10.9) 02/09/20 12:39 Hgb 14.5 g/dL (13.6-17.9) 02/09/20 12:39 Hct 44.0 % (39.6-49.0) 02/09/20 12:39 Plt Count 236 K/uL (152-406) 02/09/20 12:39 PT 11.4 SECONDS (9.5-12.5) 02/09/20 12:39 INR 0.97 02/09/20 12:39 Sodium 142 mmol/L (136-145) 02/10/20 03:51 Potassium 4.5 mmol/L (3.5-5.1) 02/10/20 03:51 BUN 13 mg/dL (7-18) 02/10/20 03:51 Creatinine 1.08 mg/dL (0.55-1.3) 02/10/20 03:51 Glucose 110 mg/dL (74-106) H 02/10/20 03:51 Magnesium 2.2 mg/dL (1.8-2.4) 02/10/20 03:51 Total Bilirubin 0.5 mg/dL (0.2-1.0) 02/09/20 12:39 AST 12 U/L (15-37) L 02/09/20 12:39 ALT 20 U/L (12-78) 02/09/20 12:39 Alkaline Phosphatase 100 U/L (45-117) 02/09/20 12:39 Troponin I < 0.02 ng/mL (0.0-0.045) 02/09/20 17:54 Triglycerides 115 mg/dL (<150) 02/10/20 03:51 Cholesterol 135 mg/dL (<200) 02/10/20 03:51 HDL Cholesterol 32 mg/dL (40-60) L 02/10/20 03:51 Cholesterol/HDL Ratio 4.22 02/10/20 03:51 Home Medications: Cetirizine HCl [Zyrtec*] 10 mg PO DAILY 02/09/20 Levocetirizine Dihydrochloride [Xyzal] 5 mg PO BEDTIME 02/09/20 Omeprazole [Prilosec] 40 mg PO [id number] 02/09/20 hydrOXYzine HCL [Atarax*] 25 mg PO TIDP PRN 02/09/20 Aspirin [Aspirin EC 81 MG] 81 mg PO DAILY #30 tablet. 02/10/20 New Medications: Aspirin [Aspirin EC 81 MG] 81 mg PO DAILY #30 tablet. Patient Discharge Instructions: 1. Recommend follow up with PCP in 1 week to follow up this hospitalization. 2. Patient presented with atypical chest pain. Patient was monitored and evaluated closely. Cardiac enzymes unremarkable. CT chest showed no evidence of pneumonia or pulmonary embolism. LDL within normal range. Cardiology was consulted to further evaluate. No significant EKG changes noted. Cardiology recommends further cardiac evaluation as an outpatient. Patient without chest pain at this time. Chest pain likely noncardiac at this time. At discharge patient may continue with aspirin 81 mg daily. Recommend follow up with cardiology within 1 week. Outpatient cardiac stress test will be ordered at that time. 3. Patient with GERD. Patient had recent EGD/colonoscopy. Biopsies were obtained. Recommend follow up with GI to further go over biopsy report and recommendations. At discharge patient will continue with his current medication-Prilosec 40 mg daily and Pepcid 20 mg 1 pill twice daily. 4. Patient with history of chronic allergies. Patient is currently being worked up extensively by garage door service technician. Etiology still on known. At discharge he will continue with his current medication regimen-Zyrtec 10 mg daily,Xyzal 5 mg at bedtime, and Atarax 25 mg 3 times a day as needed. Patient also has epi pen for emergency use only. 5. Patient with history of SVT/atrial fibrillation with prior cardiac ablations. Patient in normal sinus rhythm. Patient may follow up with cardiology to further monitor. 6. Patient with history of rheumatoid arthritis. This remained stable. At discharge he will continue with his current regimen. Follow up with Rheumatology as directed. 7. Patient with tobacco and alcohol use. Cessation education provided. 8. Patient with obesity, BMI 38.8. Lifestyle modification education provided. Diet: AHA Activity: Ad rolan Time spent managing pt's care (in minutes): 55
[2020-02-10 07:55] VITALS: O2SAT 96
[2020-02-10 08:03] VITALS: BP 113/68; TEMP 97.9
[2020-02-10] MEDS: CETIRIZINE HCL 5 MG TABLET PO SCH (08:20)
[2020-02-10] MEDS: ENOXAPARIN 40 MG/0.4 ML SQ SCH (08:21)
[2020-02-10] MEDS: FAMOTIDINE 20 MG TAB PO SCH (08:23)
[2020-02-10] MEDS ORDERED: ASPIRIN EC 81 MG TAB PO SCH (09:00)
--- NOTE | 2020-02-11 11:03 | ECHO ---
HEIGHT: 5 ft 8 in WEIGHT: 255 lb 0 oz DATE OF STUDY: 02/10/[address]: Real Soto DO 2-DIMENSIONAL: YES M.MODE: YES DOPPLER: YES COLOR FLOW: YES TDS: NO PORTABLE: NO DEFINITY: NO BUBBLE STUDY: NO DIAGNOSIS: CHEST PAIN CARDIAC HISTORY: CATHERIZATION: YES SURGERY: NO PROSTHETIC VALVE: NO PACEMAKER: NO MEASUREMENTS (cm) DIASTOLIC (NORMALS) SYSTOLIC (NORMALS) IVSd 1.1 (0.6-1.2) LA Diam 3.0 (1.9-4.0) LVEF 67% LVIDd 5.1 (3.5-5.7) LVIDs 3.2 (2.0-3.5) %FS 37% LVPWd 1.0 (0.6-1.2) Ao Diam 3.0 (2.0-3.7) 2 DIMENSIONAL ASSESSMENT: RIGHT ATRIUM: NORMAL LEFT ATRIUM: NORMAL RIGHT VENTRICLE: NORMAL LEFT VENTRICLE: NORMAL TRICUSPID VALVE: NORMAL MITRAL VALVE: NORMAL PULMONIC VALVE: NORMAL AORTIC VALVE: NORMAL PERICARDIAL EFFUSION: NONE AORTIC ROOT: NORMAL LEFT VENTRICULAR WALL MOTION: NORMAL DOPPLER/COLOR FLOW: NORMAL COMMENTS: TRACE TRICUSPID REGURGITATION. NORMAL LEFT VENTRICULAR SIZE AND FUNCTION. NO WALL MOTION ABNORMALITY. NO EFFUSION. TECHNOLOGIST: Jabier SOUSA
--- NOTE | 2020-02-13 11:06 | CON ---
Date of Consultation: 02/10/2020 Mr. De La Fuente was admitted on 02/09/[address] Soto. I saw the patient on 02/10/2020. Reason For Consultation: Chest pain and hypertension. History Of Present Illness: Mr. De La Fuente is a 49-year-old male with history of gastroesophageal reflux disease. He has had a history of atrial fibrillation, status post ablation in 2011. This has not be en an issue since. He came in with mid-epigastric chest pain radiating to the back with some nausea, diaphoresis. No shortness of breath. Denied any PND, orthopnea, pedal edema, palpitation, or synco pe. He had an elevated D-dimer with negative workup so far including CT of the chest, chest x-ray, E KG, and troponin. He is feeling better now. Past Medical History: As stated above. Allergies: TO CEFTRIAXONE. Medications At Home: None. Review of Systems: Negative. Social History: Negative. Family History: Negative. Physical Examination: Vital Signs: Stable. He was afebrile. HEENT: Negative. Neck: Supple without any bruit, lymphadenopathy, JVD, or thyromegaly. Chest: Clear to auscultation and percussion. Cardiac: Revealed regular rhythm and rate. No murmurs, gallops, or rubs. Abdomen: Benign. Extremities: Revealed no clubbing, cyanosis, or edema. Diagnostic Data: As stated above. Impression And Plan: Atypical chest pain more likely to be related to gastroesophageal reflux diseas e, is ruled out. Elevated D-dimer is nonspecific. Echocardiogram is pending. Patient is anxious to go home. I feel comfortable with him getting on a proton pump inhibitor and go home and I will arra aurora for an outpatient stress test on him. His other problems including history of atrial fibrillatio n, status post ablation. Patient remains in sinus rhythm. NB/MODL Voice ID: [id number] Report ID: [id number]
== END 2020-02-10 11:04 | disposition home or self-care (01) ==
LOC: ER 12:29 → ERHOLD 15:03 → 2ND 16:02
PROVIDERS: ADMIT Family Medicine; ATTEND Family Medicine
DX: R07.89 Other chest pain (principal); I10 Essential (primary) hypertension; K21.9 Gastro-esophageal reflux disease without esophagitis; R79.1 Abnormal coagulation profile; Z20.828 Contact with and (suspected) exposure to other viral communicable diseases; M06.9 Rheumatoid arthritis, unspecified; F10.10 Alcohol abuse, uncomplicated; E66.9 Obesity, unspecified; Z68.38 Body mass index [BMI] 38.0-38.9, adult; M54.9 Dorsalgia, unspecified; G89.29 Other chronic pain; F17.210 Nicotine dependence, cigarettes, uncomplicated
CPT/HCPCS: 93005; 93306; 85025; 80048 ×2; 36415 ×2; 83735 ×2; 82550; 85610; 80061; 85379; 80076; 84443; 84484 ×2; 82553; 84439; 83880; 71275; 71045; 99285; U0002; Q9967; J1650; G0378 ×3

== ENCOUNTER 2020-10-19 19:38 | Emergency (ER) | payer BC ==
--- OUTSIDE RECORDS SUMMARY | 2020-10-19 19:42 | XMS REPORT | Continuity of Care Document ---
:1970 Author Organization [facility] t Address [address] [place] [address] Care Team Providers Name Role Phone Singer FINNEGAN Attending Clinician Laurent KRISHNAN Attending Clinician Unavailable Demian Carlton DO Attending Clinician Rubio ANDERSON, F Attending Clinician Unavailable Rubio ANDERSON, K Attending Clinician Unavailable Doctor Unassigned, Name Attending Clinician Unavailable SANDRA Attending Clinician Unavailable YOLIE Attending Clinician Unavailable Payers Payer Name Policy Type Policy Number Effective Date Expiration Date S ource Problems Condition Condition Condition Status Onset Resolution Last Treating Co mments Source Name Details Category Date Date Treatment Clinician Date Lower back Lower back Problem Active U nivers pain pain [facility] [place] [facility] Joint pain Joint pain Problem [...] ents Source Name Type Date Date Clinician cobalt DA Active [facility] 1-27 Clear 00:00: Mcgarry 00 [facility] nickel DA Active [facility] 1-27 Clear 00:00: Mcgarry 00 [facility] ceftriax DA Active [facility] one 7-29 Clear sodium 00:00: Mcgarry 00 [facility] ceftriax DA Active SV 2012-05 [facility] one 1-22 Clear sodium 00:00: Cmgarry 00 [facility] Social History Smoking Status Start Date Stop Date Source Never smoker [facility] Medications Ordered Filled Start Stop Current Ordering Indication Dosage Frequency Signature Comments Components Source Medication Medication Date Date Medication? Clinician (SIG) Name Name B-12 TABS B-12 TABS Yes [facility] [place] [facility] HumaLOG HumaLOG Yes Univers SOLN SOLN [facility] [place] [facility] Vital Signs Vital Name Observation Time Observation Value Comments Source BP Systolic 2018-06-30 138 mm[Hg] Location: [facility]; [facility] 14:51:00 Position: [place] [facility] Sitting BP Diastolic 2018-06-30 79 mm[Hg] Location: [facility]; [facility] 14:51:00 Position: [place] [facility] Sitting Height 2018-06-30 68 [in_us] [facility] 14:51:00 [place] [facility] Weight 2018-06-30 240 [lb_av] [facility] 14:51:00 [place] [facility] Body Mass Index 2018-06-30 36.49 kg/m2 [facility] Calculated 14:51:00 [place] [facility] Heart Rate 2018-06-30 96 /min [facility] 14:51:00 [place] [facility] Procedures Procedure Date / Time Performed Performing Clinician Sour e History of Back [facility] Surgery Physicians History of Knee [facility] Surgery Physicians Encounters Start End Encounter Admission Attending Care Care Encounter Source Date/Time Date/Time Type Type Clinicians Facility Department ID 2020-09-28 2020-09-28 Emergency Singer ORMICHELLE [id number] 16:28:00 18:13:00 Marques Herrera [id number] Luis Fernando 4.2.7.2.686 [place] [id number] 2020-07-272020-07-27 Ancillary Laurent [facility] [id number] 08:38:34 08:57:12 Visit Juli Javier 350.1.13.10 [place] 4.2.7.2.686 Professio [phone] [facility] 179 [facility] 2020-07-26 2020-07-26 Patient Brandt [facility] [id number] 00:00:00 00:00:00 Outreach Amor [facility] [id number] [facility] 4.2.7.2.686 PAVILLION [phone] [facility] 2020-07-25 2020-07-25 Ancillary Rubio [facility] [id number] 08:40:55 09:20:55 Visit Wilber Norman Javier 350.1.13.10 [place] 4.2.7.2.686 Professio [id number] [address] 2020-07-20 2020-07-20 Ancillary Rubio [facility] [id number] 08:47:42 09:18:13 Visit Wilber Norman Javier 350.1.13.10 [place] 4.2.7.2.686 Professio [id number] [address] 2020-07-18 2020-07-18 [facility] Rubio [facility] [id number] 00:00:00 00:00:00 Management Wilber Norman Javier 350.1.13.10 [place] 4.2.7.2.686 Professio [phone] [address] 2020-07-15 2020-07-15 [facility] Rubio [facility] [id number] 14:52:48 15:32:48 Visit Brigida Loly Herrera 350.1.13.10 [place] 4.2.7.2.686 Professio [phone] [facility] 179 [facility] 2020-07-11 2020-07-11 Ancillary Rubio [facility] [id number] 07:27:34 08:03:59 Visit Wilber Norman Javier 350.1.13.10 [place] 4.2.7.2.686 Professio [phone] nal 179 [facility] 2020-07-08 2020-07-08 Ancillary Rubio [facility] [id number] 09:09:08 09:52:01 Visit Brigida Herrera 350.1.13.10 [place] 4.2.7.2.686 Professio [phone] [facility] 179 [facility] 2020-07-06 2020-07-06 Ancillary Rubio [facility] [id number] 08:47:17 09:27:17 Visit Wilber Herrera 350.1.13.10 [place] 4.2.7.2.686 Professio [phone] nal 179 [facility] 2020-06-29 2020-06-29 Ancillary Rubio [facility] [id number] 10:33:04 11:02:35 Visit Brigida Herrera 350.1.13.10 [place] 4.2.7.2.686 Professio [phone] [facility] 179 [facility] 2020-06-21 2020-06-21 Orders Doctor LORENA [id number] 00:00:00 00:00:00 Only Unassigned, JUAN MIGUEL 350.1.13.10 [facility] 4.2.7.2.686 [id number] 2018-06-30 2018-06-30 [id number] 14:30:00 16:00:17 2018-06-30 2018-06-30 Appointmen SADA FLORES [facility] [id number] Univers 14:30:00 14:30:00 t; TAMMY FLORES, [facility]opedic [facility] Surgery - Stacy Galvez Phys[facility] Trace 1 ans 2017-06-06 2017-06-06 Appointmen SADA URBANO [facility] [id number] Univers 10:30:00 10:30:00 t; NEENA URBANO of HIRAL , P.AHelen Kumar R, P.AHelen Physici ans Results Test Description Test Time Test Comments Results Result [facility] e Comments - XR KNEE 1 OR 2 V 2020-06-17 LT 09:06:00 [facility] : 1970 Sex: M Patient Name: NEELA DE LA FUENTE Unit No: [id number] EXAMS: CPT CODE: [id number] XR KNEE 1 OR 2 [place] [address] LEFT KNEE 2 VIEWS PORTABLE COMMENT: The patient is status post joint replacement which is articulating normally. at 0906 Reported and signed by: Rosendo Reed MD CC: Jatin Smith Technologist: KIERAN DE LA FUENTE RT(R) Transcribed D/ (905) MichaelL [facility] NAME: NEELA DE LA FUENTE [address] [facility] PHYS: Jatin Kearney : 1970 AGE: 50 SEX: M [place] [address] LOC: Y.314 A PHONE #: [phone] EXAM DATE: 06/16/2020 STATUS: ADM IN FAX #: [phone] RAD #: D/C DT PAGE 1 Signed Report Patient Name: NEELA DE LA FUENTE Unit No: [id number] EXAMS: CPT CODE: [id number] XR KNEE 1 OR 2 [place] [address] <Continued> Orig Print D/T: S: 06/17/2020 (09) [facility] NAME: NEELA DE LA FUENTE [address] [facility] PHYS: Jatin Kearney Jai : 1970 AGE: 50 SEX: M [address] NO: [id number] LOC: YRasheed A PHONE #: [phone] EXAM DATE: 06/16/2020 STATUS: ADM IN FAX #: [phone] RAD #: D/C DT PAGE 2 Signed Report BASIC METABOLIC PANEL 2020-06-17 06:23:00 Test Item Value Reference Range Interpretation Comme nts SODIUM (test code = NA) 140 mmol/L 136-145 N POTASSIUM (test code = K) 4.1 mmol/L 3.5-5.1 N CHLORIDE (test code = CL) 105.0 mmol/L 98-107 N CARBON DIOXIDE (test code = 22.6 mmol/L 21-32 N CO2) GLUCOSE (test code = GLU) 101 mg/dL 70-110 N BLOOD UREA NITROGEN (test code 16 mg/dL 7-18 N = BUN) GLOMERULAR FILTRATION RATE 79.7 >60 U nit of measure: (test code = GFR) mL/min/1.7 3 [id number] Range:Healthy A dults >90 mL/min/1.73 m2 For Chronic Kidney Disease: Stage II Mi ld Decrease in GFR 60-9 0 Stage III Moderate Decrease in GFR 30-59 Stage IV Severe Decrease in GFR 15-29 Stage V Kidney Failure <15 CREATININE (test code = CREAT) 0.99 mg/dL 0.55-1.30 N CALCIUM (test code = CA) 7.3 mg/dL 8.2-10.1 L [id number] 06:23:00 Test Item Value Reference Range Interpretation Comments MAGNESIUM (test code = MAG) 1.5 mg/dL 1.8-2.4 L HGB [id number] 06:00:00 Test Item Value Reference Range Interpretation Comments HEMOGLOBIN (test code = HGB) 9.8 g/dL 12-16 L HEMATOCRIT (test code = HCT) 31.1 % 37-47 L SPECIMEN COMMENT: POD #1Novel Coronavirus 2019 [id number] 10:52:00 Test Item Value Reference Range Interpretation Comments Novel Coronavirus Negative Negative Positive r esults are 2019 Inhouse (test indicativ e of the presence code = COVNONPUI) ofSARS-CoV -2 RNA, clinical correlation wit h patient historyand othe r diagnostic info rmation is necessary to determinepatien t infection status. Positiv e results do not rule out bacterial infection or co -infection with other viru ses. Negative result s do not preclude SARS-C oV-2 infection andsh ould not be used as the therese e basis for patient managementdecis ions. Negative result s must be combined with otherclinical observations, p atient history, and epidemiological information . Detection of SARS-CoV-2 RNA may be affe cted bysample collec tion methods, storag e conditions, and /or stageof infection. Beatriz l RNA mutations, vacc inations, antiviraltherap eutics, antibiotics, chemotherapeuti c orimmunosuppres shannan drugs have not been e valuated for effectson d etection. Results are for the identification of SARS-CoV-2 RNA usingthe [employer] M2000 Sy stem under the [facility] Emergen cy UseAuthorizatio n. The testing is perf ormed by álvaro parsons in the procedures for the Benjamin M2000 molecular diagnostic SARS-CoV-2 assa y in vitro. Novel Coronavirus 2019 [id number] 10:52:00 Test Item Value Reference Range Interpretation Comments Novel Coronavirus Negative Negative Positive r esults are 2019 Inhouse (test indicativ e of the presence code = COVNONPUI) ofSARS-CoV -2 RNA, clinical correlation wit h patient historyand othe r diagnostic info rmation is necessary to determinepatien t infection status. Positiv e results do not rule out bacterial infection or co -infection with other viru ses. Negative result s do not preclude SARS-C oV-2 infection andsh ould not be used as the therese e basis for patient managementdecis ions. Negative result s must be combined with otherclinical observations, p atient history, and epidemiological information . Detection of SARS-CoV-2 RNA may be affe cted bysample collec tion methods, storag e conditions, and /or stageof infection. Beatriz l RNA mutations, vacc inations, antiviraltherap eutics, antibiotics, chemotherapeuti c orimmunosuppres shannan drugs have not been e valuated for effectson d etection. Results are for the identification of SARS-CoV-2 RNA usingthe [employer] M2000 Sy stem under the FDA Emergen cy UseAuthorizatio n. The testing is perf ormed by álvaro parsons in the procedures for the [employer] M2000 molecular diagnostic SARS-CoV-2 assa y in vitro. PROTHROMBIN [id number] 12:38:00 Test Item Value Reference Range Interpretation Comments PROTHROMBIN TIME 10.9 secs 10.1-12.5 N PATIENT (test code = [...] v vargas IS PATIENT ON ANTICOAGULANTS ? NHas Lab been notified if Patient is on Heparin Drip? NOIf Yes, orderCBC, OCCULT BLOOD, PT every other day NTHROMBOPLASTIN TIME [id number] 12:38:00 Test Item Value Reference Range Interpretation Comments PTT ACTIVATED (test code = APTT) 34.3 secs 24.9-37.0 N IS PATIENT ON ANTICOAGULANTS ? NHas Lab been notified if Patient is on Heparin Drip? NOIf Yes, orderCBC, OCCULT BLOOD, PT every other day NCOMPREHENSIVE METABOLIC [id number] 12:26:00 Test Item Value Reference Range Interpretation Comments SODIUM (test code = 142 mmol/L 136-145 N NA) POTASSIUM (test code = 4.1 mmol/L 3.5-5.1 N K) CHLORIDE (test code = 103.0 mmol/L 98-107 N CL) CARBON DIOXIDE (test 29.1 mmol/L 21-32 N code = CO2) GLUCOSE (test code = 105 mg/dL 70-110 N GLU) BLOOD UREA NITROGEN 14 mg/dL 7-18 N (test code = BUN) GLOMERULAR FILTRATION 90.1 >60 Unit o f measure: RATE (test code = GFR) mL/mi n/1.73 f2Mwyxkilbk Range:Healthy Adults >90 mL/min/1.73 m2 For Chronic Kidney Disease: St age II Mild Decrease in GFR 60-90 St age III Moderate Decrease in GFR 30-59 Stage IV Severe Decre ase in GFR 15- 29 Stage V Kidney Failure <15 CREATININE (test code 0.89 mg/dL 0.55-1.30 N = CREAT) TOTAL PROTEIN (test 7.3 g/dL 6.4-8.2 N code = PROT) ALBUMIN (test code = 4.1 g/dL 3.4-5.0 N ALB) GLOBULIN (test code = 3.2 g/dL 2.2-4.2 N GLOB) ALBUMIN/GLOBULIN RATIO 1.3 0.7-2.0 N (test code = A/G) CALCIUM (test code = 8.5 mg/dL 8.2-10.1 N CA) BILIRUBIN TOTAL (test 0.50 mg/dL 0.2-1.00 N code = BILT) SGOT/AST (test code = 16.0 U/L 15-37 N AST) SGPT/ALT (test code = 31.0 U/L 12-78 N Please note new ALT) normal range. ALKALINE PHOSPHATASE 85 U/L 46-116 N TOTAL (test code = ALKP) CBC W/AUTO [id number] 11:49:00 Test Item Value Reference Range Interpretation Comments WHITE BLOOD CELL (test code = 15.3 K/mm3 5.7-10.5 H WBC) RED BLOOD CELL (test code = RBC) 5.25 M/mm3 4.2-5.4 N HEMOGLOBIN (test code = HGB) 15.4 g/dL 12-16 N HEMATOCRIT (test code = HCT) 46.6 % 37-47 N MEAN CELL VOLUME (test code = 89 fL 80-98 N MCV) MEAN CELL HGB (test code = MCH) 29.3 pg 27-34 N MEAN CELL HGB CONCENTRATION (test 33.0 g/dL 30.8-34.1 N code = MCHC) RED CELL DISTRIBUTION WIDTH (test 13.4 % 11-16 N code = RDW) PLT (test code = PLT) 287 K/mm3 130-400 N MEAN PLATELET VOLUME (test code = 10.3 fL 8.9-12.1 N MPV) NEUTROPHIL % (test code = NT%) 83.7 % 45-70 H LYMPHOCYTE % (test code = LY%) 10.0 % 20-40 L MONOCYTE % (test code = MO%) 5.0 % 3-10 N EOSINOPHIL % (test code = EO%) 0.1 % 1-5 L BASOPHIL % (test code = BA%) 0.3 % 0.0-1.1 N NEUTROPHIL # (test code = NT#) 12.81 K/mm3 2.00-7.50 H LYMPHOCYTE # (test code = LY#) 1.53 K/mm3 1.50-4.00 N MONOCYTE # (test code = MO#) 0.76 K/mm3 0.2-0.8 N EOSINOPHIL # (test code = EO#) 0.02 K/mm3 0.04-0.4 L BASOPHIL # (test code = BA#) 0.04 K/mm3 0.02-0.10 N MANUAL DIFF REQUIRED (test code = NO MANUAL DIFF MDIFF) NUCLEATED RED BLOOD CELL (test 0 % 0-0 N code = NRBC) - MRI C-SPINE W/O [id number] 13:49:00 [facility] 1970 Sex: M Patient Name: NEELA DE LA FUENTE Unit No: [id number] EXAMS: CPT CODE: [id number] MRI C-SPINE W/O CONT 84722 TECHNIQUE: Multiplanar, multisequence MRI examination performed of the cervical spine without intravenous contrast material. COMPARISON: CT dated 07/30/2016 FINDINGS: Alignment: There is slight reversal of cervical lordosis. Bone Lesion / Fracture: None present. Cervical Spinal Cord: No cord expansion or abnormal signal. Prevertebral / Paraspinal Soft Tissues: Unremarkable. C2/3: No significant abnormality. C3/4: Minimal disc bulge. No significant foraminal or central canal stenosis. C4/5: Small disc bulge. No significant foraminal or central canal stenosis. Severe back C5/6: Broad disc bulge osteophyte complex is present with a central disc extrusion measuring 3 mm in AP dimension. Bilateral uncovertebral hypertrophy. There is mild/moderate central canal stenosis as well as mild bilateral foraminal narrowing. C6/7: A left asymmetric disc bulge osteophyte complex is present as well as left greater than right uncovertebral hypertrophy. Moderate left, mildright foraminal stenosis is present as well as mild central canal stenosis. C7/T1: No significant abnormality. IMPRESSION: Multilevel cervical spondylosis with up to mild to moderate central canal stenosis at C5-C6. at 1349 Reported and signed by: Narendra Li M.D. CC: Technologist: BREN DOOLEY RT(R) Transcribed D/ (0739) tMEKA.[facility] NAME: NEELA DE LA FUENTE [address] [facility] PHYS: TEOFILOEarnest - Asif De La Rosa : 1970 AGE: 50 SEX: M [place] [address] LOC: Y.MRI PHONE #: [phone] EXAM DATE: 05/24/2020 STATUS: REG CLI FAX #: [phone] RAD #: D/CDT PAGE 1 Signed Report Patient Name: NEELA DE LA FUENTE Unit No: [id number] EXAMS: CPT CODE: [id number] MRI C-SPINE W/O CONT [id number] <Continued> Orig Print D/T: S: 05/24/2020 (3758) [facility] NAME: NEELA DE LA FUENTEDRO [address] [facility] PHYS: GORDO Sheppard Asif De La Rosa : 1970 AGE: 50 SEX: M [place] [address] LOC: Y.MRI PHONE #: [phone] EXAM DATE: 05/24/2020 STATUS: REG CLI FAX #: [phone] RAD #: D/C DT PAGE 2 Signed ReportAB HIV 15:57:00 Test Item Value Reference Range Interpretation Comments AB HIV 1 (test code NONREACTIVE NONREACTIVE Done by [employer] M[employer] = HIV1AB) 4th Gen HIV Ag/ Ab Combo Screen AB HIV 1 15:56:00 Test Item Value Reference Range Interpretation Comments AB HIV 1 2 (test NONREACTIVE NONREACTIVE Done by [employer] Internationalaur code = [id number]) 4th Gen HIV Ag/Ab Combo Screen URINALYSIS [id number] 14:22:00 Test Item Value Reference Range Interpretation [...] = BACU) NEGATIVE /HPF NONE COMPREHENSIVE METABOLIC [id number] 14:14:00 Test Item Value Reference Range Interpretation [...] RATE (test code = GFR) mL/mi n/1.73 z4Lucsvzors Range:Healthy Adults >90 mL/min/1.73 m2 For Chronic [...] N TOTAL (test code = ALKP) PROTHROMBIN [id number] 14:10:00 Test Item Value Reference Range Interpretation [...] v vargas IS PATIENT ON ANTICOAGULANTS ? NHas Lab been notified if Patient is on Heparin Drip? NOIf Yes, orderCBC, OCCULT BLOOD, PT every other day NTHROMBOPLASTIN TIME [id number] 14:10:00 Test Item Value Reference Range Interpretation Comments PTT ACTIVATED (test code = APTT) 36.2 secs 24.9-37.0 N IS PATIENT ON ANTICOAGULANTS ? CTas Lab [...] 0-0 N code = NRBC) CBC W/AUTO [id number] 13:48:00 Test Item Value Reference Range Interpretation [...] % 0-0 N code = NRBC) SED [id number] 13:48:00 Test Item Value Reference Range Interpretation Comments SED RATE (test code = SEDW) 5 mm/hr 0-15 N C REACTIVE [id number] 13:13:00 Test Item Value Reference Range Interpretation Comments C REACTIVE PROTEIN (test code = < 0.2 mg/dL <0.9 CRP) SYNOVIAL FLD CELL [id number] 13:01:00 Test Item Value Reference Range Interpretation Comments SYNOVIAL FLD BLOODY LT. YELLOW A COLOR (test code = COLSY) SYNOVIAL FLD BLOODY CLEAR APPEARANCE (test code = APPSY) SYNOVIAL FLD 2.0 mL VOLUME (test code = VOLSY) SYNOVIAL FLD WBC 988.000 /MM3 0-200 H (test code = WBCSY) SYNOVIAL FLD RBC 61297.000 0-2 H NOTE: An a utomated (test [...] ASPIRATED PER LEFT KNEE CELLCOUNT CBC W/AUTO [id number] 12:46:00 Test Item Value Reference Range Interpretation [...] % 0-0 N code = NRBC) SED [id number] 12:46:00 Test Item Value Reference Range Interpretation Comments SED RATE (test code = SEDW) mm/hr 0-[id number] 12:30:00 Test Item Value Reference Range Interpretation Comments SYNOVIAL FLD COLOR LT. YELLOW A (test code = COLSY) SYNOVIAL FLD CLEAR APPEARANCE (test code = APPSY) SYNOVIAL FLD mL VOLUME (test code = VOLSY) SYNOVIAL FLD WBC 988.000 /MM3 0-200 H (test code = WBCSY) SYNOVIAL FLD RBC 45785.000 0-2 H NOTE: An a utomated (test code = /mm3 method is now b eing used RBCSY) to determinesyn ovial fluid WBC and R BC counts. The dif ferential willstill be pe rformed manually. SPECIMEN COMMENT: ASPIRATED PER LEFT KNEE CELLCOUNT- XR FLUORO [id number] 11:23:00 Patient Name: NEELA DE LA FUENTE Unit No: [id number] EXAMS: CPT CODE: [id number] XR FLUORO NDL 44990 FLUOROSCOPICALLY GUIDED ASPIRATION OF THE LEFT KNEE [...] Reed MD CC: Jatin Smith Technologist: SURINDER OCASIO, RT(R) Transcribed D/ (9933) tMEKA.RASHELL [facility] NAME:NEELA DE LA FUENTE [address] [facility] PHYS: Jatin Kearney : 1970 AGE: 48 SEX: M [place] [address] LOC: Y.RAD PHONE #: [phone] EXAM DATE: 11/24/2018 STATUS: REG CLI FAX #: [phone] RAD #: D/C DT PAGE 1 Signed Report Patient Name: NEELA DE LA FUENTE Unit No: [id number] EXAMS: CPT CODE: [id number] XR FLUORO NDL 94367 <Continued> Orig Print D/T: S: 11/24/2018 (0094) [facility] NAME: NEELA DE LA FUENTE [address] [facility] PHYS: Jatin Kearney : 1970 AGE: 48 SEX: M [place] [address] LOC: Y.RAD PHONE #: [phone] EXAM DATE: 11/24/2018 STATUS: REG CLI FAX#: [phone] RAD #: D/C DT PAGE 2Signed ReportCT LUMBAR WOCLINICAL INDICATION: M47.9 Spondylosis, unspecified low back painMODALITY: [employer] CT (Iterative dose reduction techniques are utilized.)TECHNIQUE: [...] subarachnoid space.MRI CERVICAL WOCLINICAL INDICATION: M47.9 Spondylosis, rcxmilgemcqE65.90 Cervical disc disorder, unsp, unspecified cervical region [...]
[2020-10-19 20:00] LABS: Urine Blood 2+ (Negative); Urine Glucose Negative (Negative); Urine Protein Negative (Negative); Urine Specific Gravity >=1.030 (1.005-1.030); Urine pH 5.5 (5.0-7.0)
[2020-10-19 21:00] LABS: Absolute Lymphocytes (CBC) 1.8 K/uL (0.7-4.9); Basophils % 0.1 % (0-1.3); Hematocrit 39.9 % (39.6-49.0); Lymphocytes % 28.8 % (15.3-44.8); RBC Red Blood Cell Count 4.62 M/uL (4.33-5.43)
--- NOTE | 2020-10-19 21:04 | RAD REPORT ---
EXAM DESCRIPTION: CT - Stone Protocol - 10/19/2020 8:55 pm CLINICAL HISTORY: Flank pain. FLANK PAIN COMPARISON: CTSTONE PROTOCOL dated 11/13/2013 TECHNIQUE: Axial images were obtained without oral or IV contrast. Lack of contrast limits solid org an and vascular assessment. The nazku-ps-aevk spans the entirety of the system partially obscuring uppermost abdomen and lung bases. Coronal reformatted images were obtained and reviewed. All CT scans are performed using dose optimization technique as appropriate and may include automated exposure control or mA/KV adjustment according to patient size. FINDINGS: The lower lung orozco are clear. Imaged portions of the liver and spleen show no suspicious findings on non-contrast imaging. The panc reas and adrenal glands are normal. No pathologic lymphadenopathy in the abdomen or pelvis. Small fat containing umbilical hernia. No urinary tract stones or obstructive uropathy. No bowel obstruction, free air, free fluid or abscess. Normal appendix noted.Small bilateral fat cont aining inguinal hernias. Lumbar hardware is in place. IMPRESSION: No urinary tract stones or obstructive uropathy.
[2020-10-19 21:16] LABS: Albumin 3.9 g/dL (3.4-5.0); Bilirubin Direct 0.2 mg/dL (0-0.2); Bilirubin Total 0.7 mg/dL (0.2-1.0); Protein, Total 7.1 g/dL (6.4-8.2)
--- NOTE | 2020-10-19 21:29 | ER ---
Nurse's Notes [facility] Name: Noah De La Fuente Age: 50 yrs Sex: Male : 1970 Arrival Date: 10/19/2020 Time: 19:42 Bed 17 Private MD: Diagnosis: Hematuria;Other abdominal pain Presentation: 10/19 19:45 Chief complaint: Patient states: generalized rash x1 day. pt also reports R side pain ak2 x1 day. Coronavirus screen: Client denies travel out of the [place] in the last 14 days. Ebola Screen: Patient negative for fever greater than or equal to 101.5 degrees Fahrenheit, and additional compatible Ebola Virus Disease symptoms Patient denies exposure to infectious person. Patient denies travel to an Ebola-affected area in the 21 days before illness onset. No symptoms or risks identified at this time. Initial Sepsis Screen: Does the patient meet any 2 criteria? No. Patient's initial sepsis screen is negative. Does the patient have a suspected source of infection? No. Patient's initial sepsis screen is negative. Risk Assessment: Do you want to hurt yourself or someone else? Patient reports no desire to harm self or others. Onset of symptoms was October 18, 2020. 19:45 Method Of Arrival: Ambulatory ak2 19:45 Acuity: TANVI 3 ak2 Triage Assessment: 19:47 General: Appears in no apparent distress. Behavior is calm, cooperative. Pain: ak2 Complains of pain in abdomen, R side pain. Musculoskeletal: r side pain. Historical: - Allergies: 19:47 Rocephin; ak2 - PMHx: 22:18 Atrial Fib; b 12 deficiency; Gastric Reflux; Rheumatoid Arthritis; SVT; lc1 - Immunization history:: Adult Immunizations up to date. - Social history:: Smoking status: Patient reports the use of cigarette tobacco products, stopped smoking a week ago, has been using a nicotine patch . Screenin:11 Abuse screen: Denies threats or abuse. Nutritional screening: No deficits noted. lc1 Tuberculosis screening: No symptoms or risk factors identified. Fall Risk None identified. Assessment: 21:11 General: Appears uncomfortable, Behavior is calm, cooperative. Pain: Complains of pain lc1 in right side Pain currently is 7 out of 10 on a pain scale. Quality of pain is described as aching. Neuro: No deficits noted. Neuro: Level of Consciousness is awake, alert, obeys commands. Cardiovascular: Reports Denies chest pain. Respiratory: Airway is patent Respiratory effort is even, unlabored, Respiratory pattern is regular. GI: Reports lower abdominal pain, since 2 days ago Patient currently denies diarrhea, nausea, vomiting. : No signs and/or symptoms were reported regarding the genitourinary system. EENT: No signs and/or symptoms were reported regarding the EENT system. Derm: Skin is Rash noted that is itchy, red, on generalized, greater on bilateral legs. 22:00 Reassessment: Patient appears in no apparent distress at this time. No changes from [facility] previously documented assessment. Patient and/or family updated on plan of care and expected duration. Pain level reassessed. Patient is alert, oriented x 3, equal unlabored respirations, skin warm/dry/pink. Vital Signs: 19:45 BP 140 / 82; Pulse 87; Resp 20; Temp 98.3; Pulse Ox 99% on R/A; Weight 115.67 kg; ak2 Height 5 ft. 8 in. (172.72 cm); 21:11 BP 128 / 90; Pulse 72; Resp 20; Temp 96.9(TE); Pulse Ox 97% on R/A; lc1 22:00 BP 132 / 96; Pulse 67; Resp 18; Pulse Ox 99% on R/A; lc1 19:45 Body Mass Index 38.77 (115.67 kg, 172.72 cm) ak2 ED Course: 19:42 Patient arrived in ED. am4 19:47 Triage completed. ak2 20:04 Rinku Wilson PA is PHCP. jr8 20:04 Paramjit Sidhu MD is Attending Physician. jr8 20:52 Inserted saline lock: 20 gauge in right antecubital area, using aseptic technique. dh4 Blood collected. 20:54 CT Stone Protocol In Process Unspecified. EDMS 21:11 Areli Davis is Primary Nurse. lc1 21:11 No provider procedures requiring assistance completed. lc1 21:11 Patient has correct armband on for positive identification. Bed in low position. Call 1 light in reach. Side rails up X 1. 21:27 Rj Almendarez MD is Referral Physician. jr8 21:45 Patient notified of wait time. lc1 22:00 IV discontinued, intact, bleeding controlled, Pressure dressing applied. lc1 Administered Medications: 22:00 Drug: SOLU-Medrol (methylPrednisoLONE) 125 mg Route: IVP; Site: right antecubital; 1 22:15 Follow up: Response: No adverse reaction lc1 Outcome: 21:28 Discharge ordered by MD. brandon 22:00 Discharged to home ambulatory. 1 22:00 Condition: good 22:00 Discharge instructions given to patient, Instructed on discharge instructions, follow up and referral plans. Demonstrated understanding of instructions, follow-up care. 22:19 Patient left the ED. 1 Signatures: Dispatcher [employer] EDMS Areli Davis lc1 Rinku Wilson PA PA jr8 Satish Ortiz4 Shannan Munoz Anthony la2
--- NOTE | 2020-10-19 21:29 | EDPHYS ---
Physician Documentation [facility] Name: Noah De La Fuente Age: 50 yrs Sex: Male : 1970 Arrival Date: 10/19/2020 Time: 19:42 Bed 17 Private MD: RAYMON Physician Paramjit Sidhu HPI: 10/19 21:11 This 50 yrs old Male presents to ER via Ambulatory with complaints of Back jr8 Pain, Abdominal Pain, Rash. 21:11 The patient presents with pain that is acute. The symptoms are located in the right jr8 flank. Onset: The symptoms/episode began/occurred acutely, today. The pain radiates to the abdomen. Associated signs and symptoms: The patient has no apparent associated signs or symptoms. Modifying factors: The patient symptoms are alleviated by nothing, the patient symptoms are aggravated by movement. Severity of symptoms: At their worst the symptoms were mild, in the emergency department the symptoms are unchanged. The patient has not experienced similar symptoms in the past. The patient has not recently seen a physician. Patient also stated that he has problems with chronic urticaria and is having flare that his normal medications are not working for . Historical: - Allergies: 19:47 Rocephin; ak2 - PMHx: 22:18 Atrial Fib; b 12 deficiency; Gastric Reflux; Rheumatoid Arthritis; SVT; lc1 - Immunization history:: Adult Immunizations up to date. - Social history:: Smoking status: Patient reports the use of cigarette tobacco products, stopped smoking a week ago, has been using a nicotine patch . ROS: 21:11 Eyes: Negative for injury, pain, redness, and discharge, ENT: Negative for injury, jr8 pain, and discharge, Neck: Negative for injury, pain, and swelling, Cardiovascular: Negative for chest pain, palpitations, and edema, Respiratory: Negative for shortness of breath, cough, wheezing, and pleuritic chest pain, MS/Extremity: Negative for injury and deformity, Neuro: Negative for headache, weakness, numbness, tingling, and seizure. 21:11 Abdomen/GI: Positive for abdominal pain, Negative for nausea, vomiting, and diarrhea, abdominal cramps, abdominal distension. 21:11 Back: Positive for flank pain, on the right. 21:11 Skin: Positive for rash. Exam: 21:11 Constitutional: This is a well developed, well nourished patient who is awake, alert, jr8 and in no acute distress. Cardiovascular: Regular rate and rhythm with a normal S1 and S2. No gallops, murmurs, or rubs. Normal PMI, no JVD. No pulse deficits. Respiratory: Lungs have equal breath sounds bilaterally, clear to auscultation and percussion. No rales, rhonchi or wheezes noted. No increased work of breathing, no retractions or nasal flaring. Back: No spinal tenderness. No costovertebral tenderness. Full range of motion. MS/ Extremity: Pulses equal, no cyanosis. Neurovascular intact. Full, normal range of motion. Neuro: Awake and alert, GCS 15, oriented to person, place, time, and situation. Motor strength 5/5 in all extremities. Sensory grossly intact. 21:11 Abdomen/GI: Inspection: obese Bowel sounds: active, all quadrants, Palpation: soft, in all quadrants, mild abdominal tenderness, in the anterior aspect of right lateral abdomen, mass, is not appreciated, rebound tenderness, is not appreciated, voluntary guarding, is not appreciated, involuntary guarding, is not appreciated, no appreciated organomegaly, Indicators: McBurney's point is not tender, Romero's sign is negative, Rovsing's sign is negative, Liver: tenderness, is not appreciated. 21:11 Skin: rash a mild rash is noted, rash can be described as urticarial. Vital Signs: 19:45 BP 140 / 82; Pulse 87; Resp 20; Temp 98.3; Pulse Ox 99% on R/A; Weight 115.67 kg; ak2 Height 5 ft. 8 in. (172.72 cm); 21:11 BP 128 / 90; Pulse 72; Resp 20; Temp 96.9(TE); Pulse Ox 97% on R/A; lc1 22:00 BP 132 / 96; Pulse 67; Resp 18; Pulse Ox 99% on R/A; lc1 19:45 Body Mass Index 38.77 (115.67 kg, 172.72 cm) ak2 MDM: 20:04 Patient medically screened. jr8 21:19 Data reviewed: vital signs, nurses notes, lab test result(s), radiologic studies, CT jr8 scan. Data interpreted: Pulse oximetry: on room air is 99 %. Interpretation: normal. Counseling: I had a detailed discussion with the patient and/or guardian regarding: the historical points, exam findings, and any diagnostic results supporting the discharge/admit diagnosis, lab results, radiology results, the need for outpatient follow up, a urologist, to return to the emergency department if symptoms worsen or persist or if there are any questions or concerns that arise at home. Response to treatment: the patient's symptoms have mildly improved after treatment. ED course: No stone. No other pathology on CT. No acute findings on labs. Recommended f/u with urology since he did have blood in urine. To come back if anything worsens or changes. Patient good with this . 10/19 20:00 Order name: Urine Dipstick-Ancillary; Complete Time: 20:12 [facility] 10/19 20:12 Order name: Basic Metabolic Panel; Complete Time: 21:16 [facility] 10/19 20:12 Order name: CBC with Diff; Complete Time: 21:14 [facility] 10/19 20:12 Order name: Hepatic Function; Complete Time: 21:16 [facility] 10/19 20:12 Order name: Lipase; Complete Time: 21:16 [facility] 10/19 20:41 Order name: CT Stone Protocol; Complete Time: 21:14 [facility] 10/19 20:12 Order name: IV Saline Lock; Complete Time: 21:02 [facility] 10/19 20:12 Order name: Labs collected and sent; Complete Time: 21:02 [facility] Administered Medications: 22:00 Drug: SOLU-Medrol (methylPrednisoLONE) 125 mg Route: IVP; Site: right antecubital; 1 22:15 Follow up: Response: No adverse reaction lc1 Disposition: 10/20 09:09 Co-signature as Attending Physician, Paramjit Sidhu MD I agree with the assessment and [facility] plan of care. Disposition: 10/19/20 21:28 Discharged to Home. Impression: Hematuria, Other abdominal pain. - Condition is Stable. - Discharge Instructions: Hematuria, Adult. - Medication Reconciliation Form, Thank You Letter, Antibiotic Education, Prescription Opioid Use form. - Follow up: Rj Almendarez MD; When: 2 - 3 days; Reason: Recheck today's complaints, Continuance of care, Re-evaluation by your physician. - Problem is new. - Symptoms have improved. Signatures: Dispatcher [employer] Paramjit López MD MD cha Calhoun, Lisa lc1 Rinku Wilson PA PA jr8 Jacky Marks me2 Corrections: (The following items were deleted from the chart) 10/19 22:19 21:28 10/19/2020 21:28 Discharged to Home. Impression: Hematuria; Other abdominal pain. lc1 Condition is Stable. Forms are Medication Reconciliation Form, Thank You Letter, Antibiotic Education, Prescription Opioid Use. Follow up: Rj Almendarez; When: 2 - 3 days; Reason: Recheck today's complaints, Continuance of care, Re-evaluation by your physician. Problem is new. Symptoms have improved. jr8
[2020-10-19] MEDS ORDERED: METHYLPREDNISOLONE 125 MG INJ ONE (22:00)
[2020-10-19 22:37] VITALS: TEMP 96.9
[2020-10-19 22:39] VITALS: BP 132/96; O2SAT 99
== END 2020-10-19 22:19 | disposition home or self-care (01) ==
LOC: ER 19:38
DX: R31.9 Hematuria, unspecified (principal); R21 Rash and other nonspecific skin eruption; F17.210 Nicotine dependence, cigarettes, uncomplicated; Z88.1 Allergy status to other antibiotic agents
CPT/HCPCS: 85025; 80048; 36415; 80076; 81003; 83690; 76377; 74176; J2930; 96374; 99284

== ENCOUNTER 2022-02-12 07:27 | Day surgery (SDC) | payer BC ==
[2022-02-09 10:25] LABS: Absolute Lymphocytes (CBC) 1.4 K/uL (0.7-4.9); Hematocrit 41.4 % (39.6-49.0); MCV 88.7 fL (80-100); MPV 8.4 fL (7.6-11.3); RBC Red Blood Cell Count 4.66 M/uL (4.33-5.43)
--- NOTE | 2022-02-09 10:28 | RAD REPORT ---
EXAM DESCRIPTION: Louise Maciel (2 Views)02/09/2022 9:58 am CLINICAL HISTORY: Preop for hernia surgery COMPARISON: 2019 FINDINGS: The lungs appear clear of acute infiltrate. The heart is normal size IMPRESSION: No acute abnormalities displayed
[2022-02-09 10:39] LABS: SARS-CoV-2 Antigen Rapid Res Negative (Negative)
[2022-02-09 10:39] LABS: Potassium 4.7 mmol/L (3.5-5.1)
--- NOTE | 2022-02-11 07:47 | EKG ---
Test Date: 2022-02-09 Test Time: 09:32:29 Digital Imaging Technician: LARON MEASUREMENT RESULTS: Intervals: Rate: 68 CA: 160 QRSD: 90 QT: 408 QTc: 433 [place]: P: 29 CA: 160 QRS: -15 T: 14 INTERPRETIVE STATEMENTS: Normal sinus rhythm Normal ECG Compared to ECG 02/09/2020 12:42:00 No significant changes Electronically Signed On 02-11-22 07:44:30 CDT by Cordell Buckley
[2022-02-12] MEDS ORDERED: CEFAZOLIN SODIUM 1 GM/VIAL ONE (07:34)
[2022-02-12] MEDS ORDERED: Ringers Lactate 1,000 ML IV ONE (07:34)
[2022-02-12] MEDS ORDERED: ACETAMINOPHEN 500 MG TAB ONE (08:17)
[2022-02-12] MEDS ORDERED: CELECOXIB 100 MG CAPSULE ONE (08:17)
[2022-02-12] MEDS ORDERED: FENTANYL CITR 100 MCG/2 ML ONE (08:38)
[2022-02-12] MEDS ORDERED: ROCURONIUM 50 MG/5 ML VIAL IV ONE (08:39)
[2022-02-12] MEDS ORDERED: propofoL 200 MG/20 ML VIAL IV ONE (08:39)
[2022-02-12] MEDS ORDERED: MIDAZOLAM HCL 2 MG/2 ML INJ ONE (08:40)
[2022-02-12] MEDS ORDERED: LIDOCAINE 2% MPF 5 ML VIAL ONE (08:40)
[2022-02-12] MEDS ORDERED: ONDANSETRON 4 MG/2 ML VIAL ONE ×2 (08:41→10:06)
[2022-02-12] MEDS ORDERED: EPHEDRINE SULF 50 MG/ML VIAL ONE (09:34)
[2022-02-12] MEDS ORDERED: Mastisol Adhesive Liq ONE (09:47)
[2022-02-12] MEDS ORDERED: NEOSTIGMINE 1 MG/ML -10 ML VIAL ONE (09:48)
[2022-02-12] MEDS ORDERED: GLYCOPYRROLATE 0.2 MG/ML SYR ONE ×2 (09:48)
--- NOTE | 2022-02-12 09:49 | P.BOP ---
Preoperative diagnosis: incarcerated tender umbilical hernia Postoperative diagnosis: same Primary procedure: Laparoscopic repair incarcerated tender umbilical hernia with mesh Feather Edger: JORGE DALAL (RESEARCH NUTRITIONIST) Estimated blood loss: <10cc Specimen: sac Findings: incarcerated omentum Anesthesia: General Complications: None Implants: medium ventralex Transferred to: Recovery Room Condition: Good
[2022-02-12] MEDS: HYDROMORPHONE HCL 1 MG/ML INJ ONE ×2 (10:10→10:15)
[2022-02-12 10:32] VITALS: O2SAT 100
[2022-02-12] MEDS ORDERED: CODEINE 30MG/APAP 300MG TAB ONE (11:26)
[2022-02-12] MEDS ORDERED: CODEINE 30MG/APAP 300MG TAB PO ONE (11:27)
[2022-02-12 11:48] VITALS: BP 128/72; TEMP 97.6
--- NOTE | 2022-02-12 22:01 | OP ---
Date of Procedure: 02/12/2022 Surgeon: Sharif Munoz MD Night Club Manager: Cordelia Stewart. Preoperative Diagnosis: Incarcerated tender umbilical hernia. Postoperative Diagnosis: Incarcerated tender umbilical hernia. Procedure: Laparoscopic repair of incarcerated tender umbilical hernia with mesh. Estimated Blood Loss: Less than 10 mL. Specimen: Hernia sac. Findings: Incarcerated omentum. Anesthesia: General plus local. Implants: A medium Ventralex mesh. Indication: This is the case of a male, who comes to us with an incarcerated tender umbilical hernia . The benefits, alternatives, and risks of laparoscopy versus open repair with possible mesh fully e xplained which include, but not limited to infection, bleeding, damage to adjacent structures, anesth esia complication, chronic pain, chronic numbness, recurrence, OR, and even . He also understan ds this may not relieve the symptoms. This may need more than one surgical intervention and may recu r. He signed a consent. He was explained pros and cons of mesh placement and all the questions were answered to his satisfaction. He also was advised the importance of no heavy lifting and especially losing some weight. He is working on that. Description Of Procedure: The patient was brought to the operating room, placed in supine position. Anesthesia was done without complication. Abdominal area was prepped and draped in a sterile fashio n. Local anesthesia was applied, followed by sharp incision of the skin in the periumbilical region. Incision was carried down to fascia. We noticed a hernia sac with incarcerated omentum. Carefully , the hernia sac was removed. After removing some adhesions from omentum, we were able to reduce the omentum that was still viable and removed the hernia sac. Fascial edges were thin in that area, so we will have to use mesh to reinforce the area since tissues will not hold through that mesh properly . I placed Vicryl #1 inside of the fascia and then put a Susana trocar through it. I obtained pneum operitoneum under direct visualization. Placed 5 mm trocars in the right and left side laterally und er direct visualization then changed the camera to a 5 mm camera and this allowed me to take a look a t the area of the center. We visualized the area of the defects and then selected Ventralex mesh, me dium size to properly cover the area at least 3 to 5 cm. Mesh was introduced through the trocar, pul led through the straps. Trocar was removed. We proceeded to hold the fascia together while we are j ust securing the mesh in place. After that, we made sure the mesh was nice and flat. We secured destiny t with SorbaFix fixation device circumferentially and in the center. We put Vicryl #1 and closed the fascia with a [id number] fashion multiple times with secured AirSeal. We once again looked at the mesh inside, looks nice and flat against the peritoneum. The mesh flange was already removed. A t that moment, I proceeded to while evaluating the area and under direct visualization, we proceeded to deflate the pneumoperitoneum under direct visualization. After that, we proceeded to remove the t rocars and then closed the subcutaneous tissue with 3-0 chromic and skin in subcuticular fashion with 3-0 chromic and Steri-Strips on top. Sponge count and instrument counts correct. Patient tolerated the procedure well. Patient sent to recovery in stable condition. Disposition: Home. Activities: As tolerated. No heavy lifting. Followup: In my office in 1 week. Call for appointment at [phone]. Keep area dry for 48 hours, th en september shower. Keep Steri-Strips intact. Replace cotton ball. We will see the patient in a week fr om now. Medications: Will be called from the office. JAZMIN/AYSE Voice ID: [id number] Report ID: [id number]
== END 2022-02-12 11:35 | disposition home or self-care (01) ==
LOC: OR 07:27
PROVIDERS: ATTEND Surgery
PROC: 0WUF4JZ Supplement Abdominal Wall with Synthetic Substitute, Percutaneous Endoscopic Approach (ICD-10-PCS; principal; 2022-02-12 09:15)
DX: K42.0 Umbilical hernia with obstruction, without gangrene (principal); Z20.822 Contact with and (suspected) exposure to COVID-19
CPT/HCPCS: 93005; 85025; 80048; 36415; 88302; 71046; 87811; 49653; J2704; J2710; J2001; J2250; J3010; J1170; J7120; J2405 ×2; J0690